=== PATIENT | male | born 1940 | race Caucasian/White ===

== ENCOUNTER 2019-08-16 11:12 | Emergency (ER) | payer MEDICARE, SELFPAY ==
[2019-08-16 11:13] VITALS: BP 157/93; PULSE 83; RESP 24; TEMP 36.5; O2SAT 98; BMI 26.5
--- NOTE | 2019-08-16 11:34 | EKG12_ITS ---
Test Reason : Blood Pressure : / mmHG Vent. Rate : 088 BPM Atrial Rate : 104 BPM P-R Int : 000 ms QRS Dur : 086 ms QT Int : 388 ms P-R-T Axes : 000 058 002 degrees QTc Int : 469 ms Atrial fibrillation Abnormal ECG Confirmed by ANDI BURROUGHS, MIGEL ([id number]), editorial director YARIEL YEUNG ([id number]) on 08/19/2019 3:19:57 PM Referred By: DAI Confirmed By:MIGEL ESCAMILLA MD
--- NOTE | 2019-08-16 11:34 | CT_ITS ---
STUDY: CT ABDOMEN AND PELVIS WITHOUT CONTRAST REASON FOR EXAM: Male, 79 years old. ABD/BACK PAIN, CHOLECYSTECTOMY, APPENDECTOMY RADIATION DOSAGE (If Supplied By Facility): CTDIvol = ( 30.17 ) mGy, DLP = ( 2015.82 ) mGycm TECHNIQUE: Transaxial images were obtained from the dome of the diaphragm to the symphysis pubis without oral contrast, and without intravenous contrast. Sagittal and coronal images were reconstructed. Individualized dose optimization techniques were used for this CT. COMPARISON: Prior study of 09/25/2010 FINDINGS: There is mild gravity dependent vascular pooling of the posterior lung bases. The visualized portions of the heart are within normal limits. There are multiple hepatic cysts measuring up to 2.3 cm. There are surgical clips in the gallbladder fossa consistent with a prior cholecystectomy. Normal spleen. Normal pancreas. Normal bilateral adrenal glands. Normal right kidney. Normal left kidney. There is a small hiatal hernia. Normal small intestine. There is colonic diverticulosis with no evidence of associated diverticulitis. The appendix is not seen in accordance with history of appendectomy. There are calcified plaques on the abdominal aorta. There is no evidence of abdominal aortic aneurysm or dissection. Normal inferior vena cava. Normal retroperitoneum. Normal urinary bladder. 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 Seminal vesicles and seminal vesicle angles are preserved. There is a tiny fat-containing umbilical hernia. There are small bilateral fat-containing inguinal hernias. There are diffuse degenerative changes of the visualized thoracolumbar spine. There is a small sclerotic focus of the L3 body not seen on the previous study, and possibly representing metastatic lesion. A tiny sclerotic focus of the left ilium is also noted, stable in the interval. CT/Abdomen/Pelvis W IV Cont ONLY IMPRESSION: 1. Multiple scattered hepatic cysts measuring up to 2.3 cm. 2. Status post cholecystectomy and appendectomy. 3. Small hiatal hernia. Tiny fat-containing umbilical hernia. Small bilateral fat-containing inguinal hernias. 4. Colonic diverticulosis with no evidence of associated diverticulitis. 5. 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 6. Small sclerotic focus of the L3 body not seen on the previous study and possibly representing metastatic lesion. 7. Tiny sclerotic focus of the left ilium is also noted, stable in the interval. 8. Calcified plaques of the abdominal aorta and common iliac arteries. There is no evidence of abdominal aortic aneurysm or dissection. Electronically Signed: Casey Lr MD at 12:24 EDT , Service support ,
[2019-08-16] MEDS: fentaNYL 100 MCG/2 ML Ampul 50 MCG IV (11:40)
[2019-08-16] MEDS: Ondansetron 4 MG/2 ML Vial IV (11:41)
--- NOTE | 2019-08-16 11:42 | ED.VISSUMM ---
- ER Visit Summary Date of Service: 08/16/19 Chief Complaint: Abdomen and back pain History of Present Illness: The patient is a [address] Fournier. He reports that at 715 this morning he had the abrupt onset of abdominal pain that radiates into the left side of his back. He is unable to further describe the pain. He states is 10 out of 10 in severity. It is worsened by laying down and relieved by sitting up. Has had nausea with dry heaves. No diarrhea. His last bowel was today. He denies any melena or hematochezia. No dysuria or frequency. He is never had anything like this before. On review of systems patient denies any chest pain or palpitations. Physical Examination: Vitals: Stable. Afebrile. General: Well-nourished and well-developed. Head: Normocephalic atraumatic. Neck: Supple, no lymphadenopathy. No JVD. Nontender. Cardiovascular: Irregularly irregular rhythm with a 2 out of 6 systolic murmur. Respiratory: No respiratory distress. Clear to auscultation bilaterally. Abdominal: Soft, nontender, nondistended, normal bowel sounds. No guarding, rebound, or peritoneal signs. Back: No vertebral tenderness or paraspinous muscular tenderness. No CVA tenderness. Extremities: Nontender, no edema. Skin: Normal color, no rash. Neurologic: Alert and oriented ?3. Cranial nerves II through XII are intact. Normal strength and sensation. Psych: Normal affect. Test Results: EKG is A. fib at [address] changes. This is a change from his last EKG in 2008. CBC shows a white count of 11.4 with platelets 147, 7 neutrophils 87, lymphocytes of 7. Chem-7 shows a glucose 121, BUN 24, creatinine 1.41. LFTs show total protein 6.3, lipase 187. Coags are normal. UA has 25-50 red blood cells. Troponin is negative. TSH is normal. Clinical Impression(s) from Imaging Studies Abdomen/Pelvis CT 08/16/19 11:34 IMPRESSION: 1. Multiple scattered hepatic cysts measuring up to 2.3 cm. 2. Status post cholecystectomy and appendectomy. 3. Small hiatal hernia. Tiny fat-containing umbilical hernia. Small bilateral fat-containing inguinal hernias. 4. Colonic diverticulosis with no evidence of associated diverticulitis. 5. 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 6. Small sclerotic focus of the L3 body not seen on the previous study and possibly representing metastatic lesion. 7. Tiny sclerotic focus of the left ilium is also noted, stable in the interval. 8. Calcified plaques of the abdominal aorta and common iliac arteries. There is no evidence of abdominal aortic aneurysm or dissection. Electronically Signed: Casey Lr MD at 12:24 EDT , Service support , ADDENDUM: 08/16/19 1309 3 mm left UVJ calculus. Emergency Department Course and Treatment: Patient had an IV placed. He was given fentanyl and Zofran IV. He is resting more comfortably. Patient's chads 2 score is 3. He was given a dose of Eliquis p.o. and Cardizem p.o. Treatment Plan: Patient was discussed with Dr. Liu. He does not recognize it he is in atrial fibrillation. He came in today for his kidney stone. He may have been in this for a prolonged period of time. I feel he is a suitable candidate for further outpatient evaluation. Dr. Liu agrees with this. He will be discharged on Eliquis and 120 mg of Cardizem CD a day. He is given a prescription for Percocet for his kidney stone. Instructed to follow-up with Dr. Alvares in 1 week if not improving. Return to the emergency department for any worsening symptoms. Disposition: To home in improved and stable condition. Impression: 1. Atrial fibrillation. 2. Left ureterolithiasis. This note was generated with [employer] dictation software. It may contain incorrect words, spelling, and punctuation that were not noted in review of the chart prior to signing ED Disposition - Plan for ED Patient: Disposition: Home or Assisted Living Instructions: ED AFIB, ED Renal Stone w Colic Prescriptions: Diltiazem CD [Cardizem CD] 120 mg PO DAILY #30 cap Prescription Printed Apixaban [Eliquis] 5 mg PO BID #74 tab Prescription Printed Hydrocodone Bitart/Apap 5-325 [[place] 5MG-325MG] 1 tab PO Q4H PRN PRN 2 Days #10 tab PRN Reason: Pain Prescription Printed Ondansetron [Zofran Odt] 4 mg PO Q8H PRN PRN #10 tab PRN Reason: Nausea Prescription Printed Referrals: Roman Ogden MD [Primary Care Provider] - 1 Week
[2019-08-16] MEDS: 0.9% Normal Saline 1,000 ML 125 ML IV (11:55)
[2019-08-16 11:57] VITALS: BP 146/90; PULSE 84; RESP 18; O2SAT 98
[2019-08-16 12:39] LABS: Absolute Lymphocyte Count 0.79 X10^3/uL (0.83-4.51); Absolute Neutrophil Count 9.9 X10^3/uL (2.0-7.7); Basophil# 0.04 X10^3/uL; Basophil% 0.4 % (0-1); Eosinophil# 0.04 X10^3/uL; Eosinophils% 0.4 % (0-5); Hematocrit 47.8 % (40-54); Hemoglobin 15.3 g/dL (13.0-16.5); Lymphocyte # 0.79 X10^3/ul (4.0); Lymphocyte % 6.9 % (19-41); Mean Corpuscular Hgb 27.7 pg (27.0-32.0); Mean Corpuscular Volume 86.6 fL (80-94); Mean Platelet Vol. 10.8 fl (6.2-12.0); Monocyte# 0.54 X10^3/uL; Monocyte% 4.7 % (0-10); NRBC Flagged by Analyzer 0 % (0-5); Neutrophil # 9.94 X10^3/uL (2.7-7.7); Platelet Count 147 K/mm3 (150-450); RBC Distribution Width CV 13.5 % (11.6-14.6); RBC Distribution Width SD 42.8 fl (35.1-43.9); Red Blood Count 5.52 M/mm3 (4.6-6.2); White Blood Count 11.4 K/mm3 (4.4-11.0)
[2019-08-16 12:48] LABS: International Normalized Ratio 1.2; Prothrombin Time (Protime)PT. 14.4 SECONDS (11.7-14.9)
[2019-08-16 12:49] LABS: Partial Thromboplast Time 26.8 Seconds (24.1-36.2)
[2019-08-16 13:07] LABS: AST(SGOT) 18 U/L (15-37); Alanine Aminotransfer ALT/SGPT 21 U/L (16-61); Albumin, Serum 3.4 g/dL (3.2-5.0); Alkaline Phosphatase 62 U/L (45-117); Anion Gap 6 (5-15); BUN 24 mg/dL (7-18); Bilirubin, Direct 0.19 mg/dL (0.00-0.30); Calcium,Total 8.9 mg/dL (8.5-10.1); Chloride 107 mmol/L (98-107); Creatinine, Serum 1.41 mg/dL (0.70-1.30); EST Glomerular Filtration Rate 51 mL/min (>60); Est Glom Filt Rate - Afr Amer 62 mL/min (>60); Estimated Creatinine Clearance 47.77 ml/min; Globulin 2.9 g/dL (2.2-4.2); Glucose 121 mg/dL (74-106); Lipase 187 U/L (73-393); Potassium 4.7 mmol/L (3.5-5.1); Protein, Total 6.3 g/dL (6.4-8.2); Sodium Level 141 mmol/L (136-145)
[2019-08-16 13:08] LABS: Lactic Acid 1.3 mmol/L (0.4-1.9)
[2019-08-16 13:18] LABS: Thyroid Stim Hormone (TSH) 1.03 uIU/mL (0.358-3.74)
[2019-08-16 13:20] VITALS: BP 163/91; PULSE 89; RESP 18; O2SAT 100
[2019-08-16 13:43] LABS: Bacteria 0 SEEN /hpf (None Seen); Mucous, Urine 0 SEEN /hpf (<or=2+); Squamous Epithelial Cells - UA 0 SEEN /hpf (0-5); White Blood Cells 0 SEEN /hpf (0-5)
[2019-08-16 14:09] LABS: Color, Urine Yellow (Yellow); Glucose, Dipstick Normal (Normal); Ketone-Dipstick Negative (Negative); Leukocyte Esterase-Dipstick Negative /ul (Negative); Nitrite-Dipstick Negative (Negative); Occult Blood-Urine 250 /ul (Negative); Protein-Dipstick Negative (Negative); Urine Bilirubin Dipstick Negative (Negative); Urine Clarity Clear (Clear); Urine Urobilinogen Normal (Normal)
[2019-08-16 14:18] LABS: Red Blood Cells-Urine 25-50 SEEN /hpf (0-5)
[2019-08-16] MEDS: APIXABAN 5 MG TABLET 10 MG PO (15:37)
[2019-08-16] MEDS: dilTIAZem CD 120 MG Capsule PO (15:37)
[2019-08-16 15:38] VITALS: BP 171/106; PULSE 85; RESP 18
== END 2019-08-16 16:01 | disposition home or self-care (01) ==
PROVIDERS: Emergency Provider Emergency Medicine; PCP Family Medicine
DX: I48.91 Unspecified atrial fibrillation (principal); N20.1 Calculus of ureter
CPT/HCPCS: 74177; 80048; 80076; 81001; 83605; 83690; 84443; 84484; 85025; 85610; 85730; 93005; 96361; 96365; 96375; 99285; J7030; Q9967; A4216; J2405

== ENCOUNTER 2019-08-19 07:54 | Inpatient (IN) | payer MEDICARE, SELFPAY ==
[2019-08-19 07:54] VITALS: BP 156/99; PULSE 112; RESP 20; TEMP 36.3; O2SAT 94; BMI 26.6
--- NOTE | 2019-08-19 08:03 | CT_ITS ---
STUDY: CT ABDOMEN AND PELVIS WITHOUT CONTRAST REASON FOR EXAM: Male, 79 years old. LT FLANK PAIN. PRIOR VIRGIL AND APPY RADIATION DOSAGE (If Supplied By Facility): CTDIvol = ( 12.66 ) mGy, DLP = ( 648.25 ) mGycm TECHNIQUE: Transaxial images were obtained from the dome of the diaphragm to the symphysis pubis without oral contrast, and without intravenous contrast. Sagittal and coronal images were reconstructed. Individualized dose optimization techniques were used for this CT. COMPARISON: 08/16/2019 FINDINGS: Some bibasilar atelectasis The visualized portions of the heart are within normal limits. Small hepatic cysts. There are surgical clips in the gallbladder fossa consistent with a prior cholecystectomy. Normal spleen. Normal pancreas. Normal bilateral adrenal glands. Normal right kidney. 2 separate stones of the distal left ureter measuring 2 and 3 mm in diameter with mild ureteral dilatation, hydronephrosis, and perinephric edema. Normal visualized stomach. Normal small intestine. There are multiple colonic diverticula consistent with diverticulosis. There is non-visualization of the appendix. There is diffuse atherosclerotic calcification of the abdominal aorta, without a demonstrated aneurysm. Normal inferior vena cava. Normal retroperitoneum. Normal urinary bladder. Radiation seeds within the prostate gland. Small amount of free fluid in the pelvis which is abnormal in a male patient. Normal abdominal wall. Levoscoliosis of the lumbar spine with degenerative disc disease. CT/Abdomen/Pelvis without Cont IMPRESSION: 2 obstructing stones in the distal left ureter with mild ureteral dilatation, hydronephrosis, perinephric edema. Electronically Signed: Hamilton Hayward MD at 9:14 EDT Tel , Service support ,
--- NOTE | 2019-08-19 08:05 | ED.DCSUM_ITS ---
- ER Visit Summary Date of Service: 08/19/19 Chief Complaint: [Flank pain] History of Present Illness: The patient is a 79 M [presents the emergency department left leg pain that started initially 4 days ago. Patient was seen in the emergency department on the of the month and diagnosed with a 3 mm ki dney stone at the left UVJ. Patient was sent home with pain medications but states that pain continues to be severe at times and rates it a 10 out of 10 currently. He has had some dry heaves. He denies any fever. He denies hematuria. Patient does have history of kidney stones. He currently does not have a urologist. Patient currently on Eliquis for history of atrial fibrillation. Patient also with history of hypertension. Prior surgical history includes appendectomy and cholecystectomy.] Physical Examination: [HEENT-PERRLA, EOMI. Cranial nerves II through XII gr ossly intact. TMs clear. Mucous membranes moist. No adenopathy. Cardiovascular-regular rate and rhythm without murmur or ectopy Lungs-clear to auscultation, chest wall stable without crepitus or subcu emphysema Abdomen-normoactive bowel sounds, soft. Patient has tenderness palpation over left lower quadrant with guarding. Patient is CVA tenderness on the left. There is no rebound, rigidity, or perineal signs. Extremities-intact ?4, normal range of motion, normal pulses, atraumatic] Test Results: [CBC with it showed an elevated white count of 14.2, hemoglobin 15, hematocrit 47, platelet 152. Chemistries unremarkable. BUN was 40 and creatinine 2.57. Urinalysis was unremarkable for infection. CT scan of the abdomen and pelvis without contrast showed 2 obstructing stones at the left UVJ with hydronephrosis and perinephric stranding on the left.] Emergency Department Course and Treatment: [IV line established. Patient was medicated with Toradol 10 mg IV as well as Zofran 4 mg IV and Dilaudid 1 mg IV.] Patient had good pain relief with treatment. Treatment Plan: [Case was discussed with urologist on-call Dr. Alvares who will admit patient and place a stent tomorrow.] Disposition: [Admit] Impression: [Kidney stone with colic Acute kidney injury ] This note was generated with [employer] software. It may contain incorrect words, spelling, and punctuation that were not noted in review of the chart prior to signing ED Disposition - Plan for ED Patient: Referrals: Roman Ogden MD [Primary Care Provider] -
[2019-08-19 08:31] LABS: Bacteria 0 SEEN /hpf (None Seen); Mucous, Urine 0 SEEN /hpf (<or=2+); White Blood Cells 0 SEEN /hpf (0-5)
[2019-08-19 08:34] LABS: Absolute Lymphocyte Count 0.77 X10^3/uL (0.83-4.51); Absolute Neutrophil Count 11.8 X10^3/uL (2.0-7.7); Basophil# 0.03 X10^3/uL; Basophil% 0.2 % (0-1); Eosinophil# 0.02 X10^3/uL; Eosinophils% 0.1 % (0-5); Hematocrit 47.3 % (40-54); Hemoglobin 15.1 g/dL (13.0-16.5); Lymphocyte # 0.77 X10^3/ul (4.0); Lymphocyte % 5.4 % (19-41); Mean Corp Hgb Conc 31.9 g/dL (32-36); Mean Corpuscular Hgb 27.9 pg (27.0-32.0); Mean Corpuscular Volume 87.3 fL (80-94); Mean Platelet Vol. 11.2 fl (6.2-12.0); Monocyte% 10.6 % (0-10); NRBC Flagged by Analyzer 0 % (0-5); Neutrophil # 11.78 X10^3/uL (2.7-7.7); Neutrophil % 83.1 % (47-70); Platelet Count 152 K/mm3 (150-450); RBC Distribution Width CV 13.8 % (11.6-14.6); RBC Distribution Width SD 43.8 fl (35.1-43.9); Red Blood Count 5.42 M/mm3 (4.6-6.2); White Blood Count 14.2 K/mm3 (4.4-11.0)
[2019-08-19 08:35] LABS: Color, Urine Yellow (Yellow); Glucose, Dipstick Normal (Normal); Ketone-Dipstick 15 mg/dl (Negative); Leukocyte Esterase-Dipstick Negative /ul (Negative); Nitrite-Dipstick Negative (Negative); Occult Blood-Urine 10 /ul (Negative); Protein-Dipstick 30 mg/dl (Negative); Specific Gravity, Urine 1.025 (1.002-1.030); Urine Bilirubin Dipstick Negative (Negative); Urine Clarity Sl. Cloudy (Clear); Urine Urobilinogen Normal (Normal)
[2019-08-19 08:47] LABS: Anion Gap 9 (5-15); BUN 40 mg/dL (7-18); BUN/Creat Ratio 15.6 RATIO (10-20); Calcium,Total 9.1 mg/dL (8.5-10.1); Chloride 105 mmol/L (98-107); Creatinine, Serum 2.57 mg/dL (0.70-1.30); EST Glomerular Filtration Rate 26 mL/min (>60); Est Glom Filt Rate - Afr Amer 31 mL/min (>60); Estimated Creatinine Clearance 26.21 ml/min; Glucose 122 mg/dL (74-106); Potassium 4.2 mmol/L (3.5-5.1); Sodium Level 141 mmol/L (136-145)
[2019-08-19] MEDS: 0.9% Normal Saline 1,000 ML 150 ML IV (08:48)
[2019-08-19] MEDS: Ondansetron 4 MG/2 ML Vial IV (08:48)
[2019-08-19 08:49] LABS: Red Blood Cells-Urine 0-5 SEEN /hpf (0-5); Squamous Epithelial Cells - UA 0-5 SEEN /hpf (0-5)
[2019-08-19] MEDS: HYDROmorphone 1 MG/ML Syringe IV (08:50)
[2019-08-19] MEDS: Ketorolac 15 MG/ML Vial 10 MG IV (08:50)
--- NOTE | 2019-08-19 09:25 | PCM.HP.STD ---
Problem List (1) left ureteral calculi Status: Acute History of Present Illness Date of Admission: 08/19/19 Chief Complaint: left obstructing renal calculi The patient is a 79 year old male presents the emergency room for second time with severe left flank pain stones the distal left ureter he has intractable pain elevated creatinine last training around his CAT scan findings and a lot of straining around the left kidney, he is on Eliquis for a fib, at this point I think he deserves admission and will plan for stent placement tomorrow. Past Medical History Medical History: Medical History (Last Updated 08/19/19 @ 09:[address] Benjamin Alvares MD) History of atrial fibrillation Z86.79 Allergies acyclovir Allergy (Verified 08/19/19 07:57) PT UNSURE OF REACTION Home Medications: Ambulatory Orders Medication Instructions Recorded Apixaban [Eliquis] 5 mg PO BID #74 tab 08/16/19 Diltiazem CD [Cardizem CD] 120 mg PO DAILY #30 cap 08/16/19 Ondansetron [Zofran Odt] 4 mg PO Q8H PRN PRN #10 tab 08/16/19 Surgical History: no surgical history Psychiatric History: No pertinent psych hx Lives: Alone Smoking Status: Never smoker Tobacco Use: Non-smoker Alcohol: None Drugs: None - *Family History Maternal History Items: No pertinent history Review of Systems Constitutional: Denies: Chills, Fever, Weight Change HEENT: Denies: Head Aches, Sinus Congestion, Sinus Drainage Cardiovascular: Denies: Chest Pain, Palpitations Respiratory: Denies: Cough, Shortness of breath at rest, Sputum production Gastrointestinal: Reports: Abdominal Pain. Denies: Nausea, Vomiting Genitourinary: Reports: Hematuria. Denies: Dysuria Musculoskeletal: Denies: Joint Pain, Joint Tenderness Skin: Denies: Rash, Wounds Neurological: Denies: Numbness, Tingling, Focal weakness Psychiatric: Denies: Anxiety, Depression, Homicidal Ideations, Suicidal Ideations Hematologic/ Lymphatic: Denies: Easy Bruising, Easy Bleeding VTE Information - Inpt Only VTE Present on Admission: No VTE Mechan Device Prophylaxis: SCD's Patient Problems: Active and Suspected Problems left ureteral calculi (Acute) - Physical Exam Vitals/I&O's: Vital Signs Temp Pulse Resp BP Pulse Ox 97.3 F L 112 H 20 H 156/99 H 94 08/19/19 07:54 08/19/19 07:54 08/19/19 07:54 08/19/19 07:54 08/19/19 07:54 Oxygen Delivery Method Room Air Weight: 93.894 kg Body Mass Index (BMI) 26.6 General: Alert, Oriented x3, Cooperative HEENT: Atraumatic, PERRLA, EOMI, Normocephalic Neck: Supple, No JVD, Negative Carotid Bruits Lungs: Clear to auscultation, Normal air movement Cardiovascular: Regular rate, No murmurs Abdomen: Bowel Sounds Present, Soft, Non Tender Extremities: No edema, Capillary Refill Less than 3 Seconds Skin: No rashes, No breakdown Musculoskeletal: No Tenderness to Palpation of Joints or Extremities Neurological: Cranial nerves II-XII grossly intact Psych/Mental Status: Normal Affect, Appropriate Laboratory Results 08/19/19 08:25: WBC 14.2 H, RBC 5.42, Hgb 15.1, Hct 47.3, MCV 87.3, MCH 27.9, MCHC 31.9 L, RDW Std Deviation 43.8, RDW Coeff of Alfonso 13.8, Plt Count 152, MPV 11.2, Immature Gran % (Auto) 0.600, Neut % (Auto) 83.1 H, Lymph % (Auto) 5.4 L, [place] % (Auto) 10.6 H, Eos % (Auto) 0.1, Baso % (Auto) 0.2, Absolute Neuts (auto) 11.8 H, Absolute Lymphs (auto) 0.77 L, Nucleated RBC % 0 08/19/19 08:25: Sodium 141, Potassium 4.2, Chloride 105, Carbon Dioxide 27.0, Anion Gap 9, BUN 40 H, Creatinine 2.57 H, Estim Creat Clear Calc 26.21, Est GFR (MDRD) Af Amer 31 L, Est GFR (MDRD) Non-Af 26 L, BUN/Creatinine Ratio 15.6, Glucose 122 H, Calcium 9.1 08/19/19 08:25: Urine Color Yellow, Urine Clarity Sl. Cloudy, Urine pH 5.0, Ur Specific [place] 1.025, Urine Protein 30 H, Urine Glucose (UA) Normal, Urine Ketones 15 H, Urine Occult Blood 10 H, Urine Nitrite Negative, Urine Bilirubin Negative, Urine Urobilinogen Normal, Ur Leukocyte Esterase Negative, Urine RBC 0-5 SEEN, Urine WBC 0 SEEN, Ur Squamous Epith Cells 0-5 SEEN, Urine Bacteria 0 SEEN, Urine Mucus 0 SEEN Current Medications Sodium Chloride () 1,000 mls @ 150 mls/hr IV .[id number] [facility] Last Admin: 08/19/19 08:48 Dose: 150 mls/hr Documented by: Assessment/Plan All Active Problems left ureteral calculi (Acute) plan admit the patient up because of obstructing stones is failed outpatient management. With the patient overnight for admission for elevated creatinine he has acute kidney injury, obstruction, hydronephrosis. And that will add on for stent retrograde stent tomorrow NPO midnight.
--- NOTE | 2019-08-19 09:29 | NURSING ---
MED SURG OBS MARTIN KIDNEY STONE WITH COLIC, LILLY
[2019-08-19 10:06] VITALS: BP 143/83; PULSE 106; RESP 14; TEMP 36.8; O2SAT 93
[2019-08-19] MEDS: Cefazolin 1 GM/50 ML BAG IV ×2 (10:10→22:07)
[2019-08-19 10:11] VITALS: BP 143/83; PULSE 106; RESP 14; TEMP 36.8; O2SAT 93
[2019-08-19 10:28] VITALS: BMI 26.9
[2019-08-19] MEDS: 0.9% Normal Saline 1,000 ML 100 ML IV ×2 (11:09→18:48)
[2019-08-19 11:50] VITALS: PULSE 100
[2019-08-19] MEDS: dilTIAZem CD 120 MG Capsule PO (12:04)
[2019-08-19 12:06] LABS: Bedside Glucose 114 mg/dL (70-110)
--- NOTE | 2019-08-19 12:54 | CHAPLAIN ---
Type of Pastoral Visit _x__ Initial Visit ___ Follow-up Visit ___ On-call Visit ___ General Patient Visit ___ Spiritual Assessment ___ Family Conference ___ Bereavement ___ Rapid Response ___ Code Blue ___ Other (describe below) Pastoral Care Referral From _x__ Patient ___ Family ___ Nurse ___ Physician ___ Fitness Consultant ___ Sustainability Executive Director ___ Other (describe below) Sacrament/Intervention _x__ Active listening ___ Anointing ___ Protestant ___ Bereavement ___ Communion _x__ Destiney exploration ___ _x__ Life review _x__ Prayer ___ Reconciliation ___ Sacrament of Sick _x__ Supportive presence ___ Wedding ___ Other (describe below) Pastoral Comments
[2019-08-19 16:25] VITALS: BP 130/76; PULSE 85; RESP 16; TEMP 37.2; O2SAT 94
[2019-08-19 16:36] LABS: Bedside Glucose 120 mg/dL (70-110)
[2019-08-19 20:30] VITALS: BP 137/68; PULSE 98; RESP 18; TEMP 37.1; O2SAT 93
[2019-08-19 23:00] LABS: Bedside Glucose 123 mg/dL (70-110)
[2019-08-20] VITALS (9 sets, daily range): BP systolic 121–144; BP diastolic 61–95; PULSE 81–103; RESP 16–18; TEMP 36.2–37.7; O2SAT 92–96; BMI 26.9
--- NOTE | 2019-08-20 | CALC_PTH ---
PATIENT: BETO ANDRADE Jr. LOC: MS3 U#:[id number] AGE/SX: 79/M [place] [facility] [place]: Dr. Benjamin Alvares MD : [id number] BED: 1 DIS: 08/20/2019 SPEC #: [id number] RECD: 08/20/19 14:38 STATUS: LAUREN DUMASColton #: [id number] YADIRA: 08/20/19 00:[address]: Benjamin Alvares DEPT: SURGICAL PATHOLOGY RECD BY: Abhinav Roy ENTERED: 08/21/19 09:12 SP TYPE: Calculi OTHR DR: Dr. Roman Ogden MD Tissues: CALCULI Procedures: Surgery Specimen Level I HEADER OPERATION: Cyst, insertion stent PRE-OP DIAGNOSIS: Left ureteral calculi TISSUE SUBMITTED: Left ureteral calculi GROSS DIAGNOSIS Fragments of stone, clinically left ureteral calculi. SJ:jadiel 5/21/20 COMMENT The calculus is submitted in its entirety for chemical stone analysis. The results from this study will be reported separately. GROSS DESCRIPTION Received is one container labeled with the patient's name and designated left ureteral calculi. The specimen consists of two fragments of brownish-black stone each measuring 0.2 cm in diameter. The calculus is submitted in its entirety for chemical stone analysis. / SJ:jadiel 08/21/19 CPT: 22444
[2019-08-20] MEDS: 0.9% Normal Saline 1,000 ML 100 ML IV (04:36)
--- NOTE | 2019-08-20 06:00 | EKG12_ITS ---
Test Reason : PRE-OP Blood Pressure : / mmHG Vent. Rate : 094 BPM Atrial Rate : 075 BPM P-R Int : 000 ms QRS Dur : 088 ms QT Int : 354 ms P-R-T Axes : 000 026 -29 degrees QTc Int : 442 ms Atrial fibrillation Low voltage QRS Abnormal ECG When compared with ECG of 16-AUG-2019 11:17, No significant change was found Confirmed by PROSPER BURROUGHS, BALDEV ([id number]), content editor YARIEL YEUNG ([id number]) on 08/26/2019 3:41:36 PM Referred By: MARTIN Confirmed By:BALDEV CHENG MD
[2019-08-20 06:13] LABS: Absolute Lymphocyte Count 1.25 X10^3/uL (0.83-4.51); Absolute Neutrophil Count 9.4 X10^3/uL (2.0-7.7); Basophil# 0.03 X10^3/uL; Basophil% 0.2 % (0-1); Eosinophil# 0.07 X10^3/uL; Eosinophils% 0.6 % (0-5); Hematocrit 41.7 % (40-54); Hemoglobin 13.5 g/dL (13.0-16.5); Lymphocyte # 1.25 X10^3/ul (4.0); Lymphocyte % 9.9 % (19-41); Mean Corp Hgb Conc 32.4 g/dL (32-36); Mean Corpuscular Volume 86.3 fL (80-94); Mean Platelet Vol. 11.4 fl (6.2-12.0); Monocyte% 14.3 % (0-10); NRBC Flagged by Analyzer 0 % (0-5); Neutrophil # 9.42 X10^3/uL (2.7-7.7); Neutrophil % 74.5 % (47-70); POSITIVE DIFFERENTIAL YES; Platelet Count 141 K/mm3 (150-450); RBC Distribution Width CV 13.8 % (11.6-14.6); RBC Distribution Width SD 43.9 fl (35.1-43.9); Red Blood Count 4.83 M/mm3 (4.6-6.2); White Blood Count 12.6 K/mm3 (4.4-11.0)
--- NOTE | 2019-08-20 06:13 | PCM.PROGNOTE ---
Patient Problems: Active and Suspected Problems (Last Updated 08/19/19 @ 09:[address] Benjamin Alvares MD) left ureteral calculi (Acute) Subjective: 79-year-old male with 2 stones in the distal ureter on the left side, still having pain overnight but not as severe rated 3 out of 10, will do a KUB this morning to see the stones are still present does not look like he has passed a stone we talked about the options of management with the patient going home and see if he can pass the stones or taken the surgery later today for extraction. - Physical Exam Vitals/I&O's: Vital Signs Temp Pulse Resp BP Pulse Ox 98.9 F 94 18 126/79 H 94 08/20/19 02:05 08/20/19 02:05 08/20/19 02:05 08/20/19 02:05 08/20/19 02:05 Oxygen Delivery Method Room Air Weight: 95.1 kg Body Mass Index (BMI) 26.9 Intake and Output for Last 24 Hours 08/18/19 08/19/19 08/20/19 23:59 23:59 23:59 Intake Total 2004 593.33 / 593.33 Output Total 425 / 425 Balance 1580 / 1580 593.33 / 593.33 General: Alert, Oriented x3, Cooperative HEENT: Atraumatic, PERRLA, EOMI, Normocephalic Neck: Supple, No JVD, Negative Carotid Bruits Lungs: Clear to auscultation, Normal air movement Cardiovascular: Regular rate, No murmurs Abdomen: Bowel Sounds Present, Soft, Non Tender Extremities: No edema, Capillary Refill Less than 3 Seconds Skin: No rashes, No breakdown Musculoskeletal: No Tenderness to Palpation of Joints or Extremities Neurological: Cranial nerves II-XII grossly intact Psych/Mental Status: Normal Affect, Appropriate Microbiology Past 72 Hours 08/19/19 15:04 Mucosa - Nasopharyngeal Coronavirus COVID-19 PCR - Final Laboratory Results 08/19/19 08:25: WBC 14.2 H, RBC 5.42, Hgb 15.1, Hct 47.3, MCV 87.3, MCH 27.9, MCHC 31.9 L, RDW Std Deviation 43.8, RDW Coeff of Alfonso 13.8, Plt Count 152, MPV 11.2, Immature Gran % (Auto) 0.600, Neut % (Auto) 83.1 H, Lymph % (Auto) 5.4 L, [place] % (Auto) 10.6 H, Eos % (Auto) 0.1, Baso % (Auto) 0.2, Absolute Neuts (auto) 11.8 H, Absolute Lymphs (auto) 0.77 L, Nucleated RBC % 0 08/19/19 08:25: Sodium 141, Potassium 4.2, Chloride 105, Carbon Dioxide 27.0, Anion Gap 9, BUN 40 H, Creatinine 2.57 H, Estim Creat Clear Calc 26.21, Est GFR (MDRD) Af Amer 31 L, Est GFR (MDRD) Non-Af 26 L, BUN/Creatinine Ratio 15.6, Glucose 122 H, Calcium 9.1 08/19/19 08:25: Urine Color Yellow, Urine Clarity Sl. Cloudy, Urine pH 5.0, Ur Specific [place] 1.025, Urine Protein 30 H, Urine Glucose (UA) Normal, Urine Ketones 15 H, Urine Occult Blood 10 H, Urine Nitrite Negative, Urine Bilirubin Negative, Urine Urobilinogen Normal, Ur Leukocyte Esterase Negative, Urine RBC 0-5 SEEN, Urine WBC 0 SEEN, Ur Squamous Epith Cells 0-5 SEEN, Urine Bacteria 0 SEEN, Urine Mucus 0 SEEN 08/19/19 12:01: POC Glucose 114 H 08/19/19 16:30: POC Glucose 120 H 08/19/19 22:53: POC Glucose 123 H 08/20/19 05:38: WBC Pending, RBC Pending, Hgb Pending, Hct Pending, MCV Pending, MCH Pending, MCHC Pending, RDW Std Deviation Pending, RDW Coeff of Alfonso Pending, Plt Count Pending, Neut % (Auto) Pending, Absolute Neuts (auto) Pending 08/20/19 05:38: Sodium Pending, Potassium Pending, Chloride Pending, Carbon Dioxide Pending, Anion Gap Pending, BUN Pending, Creatinine Pending, Est GFR (MDRD) Af Amer Pending, Est GFR (MDRD) Non-Af Pending, BUN/Creatinine Ratio Pending, Glucose Pending, Calcium Pending Current Medications Acetaminophen (Tylenol) 650 mg PO Q6H PRN PRN PRN Reason: Pain Score 1-10/Temp > 100.7 F Dextrose (D50w Syringe) 0 gm IV X1 PRN; Protocol PRN Reason: Hypoglycemia Diltiazem HCl (Cardizem Cd) 120 mg PO DAILY [facility] Last Admin: 08/19/19 12:04 Dose: 120 mg Documented by: Glucagon () 1 mg IM .X1 PRN PRN Reason: Hypoglycemia Sodium Chloride () 1,000 mls @ 100 mls/hr IV .Q10H [facility] Last Admin: 08/20/19 04:36 Dose: 100 mls/hr Documented by: Cefazolin Sodium () 1 gm in 50 mls @ 100 mls/hr IV Q12 [facility] Stop: 08/24/19 10:01 Last Infusion: 08/19/19 22:40 Dose: Infused Documented by: Sodium Chloride () 250 mls @ 15 mls/hr IV .[id number] PRN PRN Reason: Saline Flush Morphine Sulfate () 2 mg IV Q3H PRN PRN PRN Reason: Pain Score 6-10/10 Ondansetron HCl (Zofran) 4 mg IV Q8H PRN PRN PRN Reason: NAUSEA/VOMITING Oxycodone HCl (Oxyir) 10 mg PO Q4H PRN PRN PRN Reason: Pain Score 4-5/10 Sodium Chloride () 10 - 40 ml IV UD PRN PRN Reason: SALINE FLUSH Zolpidem Tartrate (Ambien (Generic)) 5 mg PO QHS PRN PRN PRN Reason: INSOMNIA Medical Necessity - Tobacco Use Smoking Status: Never smoker Tobacco Use: Non-smoker Assessment/Plan All Active Problems (Last Updated 08/19/19 @ 09:[address] Benjamin Alvares MD) left ureteral calculi (Acute) We will check a KUB and he is on the schedule for today for extraction of stones possible stent.
[2019-08-20 06:25] LABS: Anion Gap 7 (5-15); BUN 42 mg/dL (7-18); BUN/Creat Ratio 17.5 RATIO (10-20); Calcium,Total 8.3 mg/dL (8.5-10.1); Chloride 109 mmol/L (98-107); EST Glomerular Filtration Rate 28 mL/min (>60); Est Glom Filt Rate - Afr Amer 34 mL/min (>60); Estimated Creatinine Clearance 28.07 ml/min; Glucose 100 mg/dL (74-106); Potassium 4.1 mmol/L (3.5-5.1); Sodium Level 140 mmol/L (136-145)
[2019-08-20 07:01] LABS: Differential Indicated SCAN CRITERIA MET
[2019-08-20 07:18] LABS: Differential Comment SCANNED; Ovalocyte RARE; Reactive Lymphocyte RARE
--- NOTE | 2019-08-20 07:20 | RAD_ITS ---
STUDY: X-RAY - ABDOMEN/PELVIS REASON FOR EXAM: Male, 79 years old. KIDNEY STONE TECHNIQUE: AP supine view. COMPARISON: CT abdomen and pelvis without contrast 08/19/2019. FINDINGS: Subsegmental atelectases in the lung bases. There is an unremarkable bowel gas pattern. There is no demonstrated free abdominal air. The visualized liver, spleen and kidneys are grossly normal in size and morphology. No visible radiopaque calculi. The obstructing calculus in the left distal ureter is not visible on plain film radiograph. Pronounced at L2-L3 disc space height narrowing. Mild degree L4 and L4-L5 disc space height narrowing. RAD/Abdomen Single View IMPRESSION: 1. The obstructing calculus in the left distal ureter seen on CT is not visible on plain film radiograph. 2. No suspicious acute abnormality in the abdomen and pelvis. Electronically Signed: Krishna Obregon MD at 8:28 EDT , Service support ,
[2019-08-20] MEDS: dilTIAZem CD 120 MG Capsule PO (08:13)
[2019-08-20] MEDS: Cefazolin 1 GM/50 ML BAG IV (10:00)
--- NOTE | 2019-08-20 10:15 | NURSING ---
Off unit to OR at this time.
--- NOTE | 2019-08-20 10:40 | PCM.DC.URO ---
Discharge Diet: No Restrictions Discharge Activity: Return to Normal Activity, May Not Drive - for 2 days. Additional Activity Instructions:: Please be aware that pain medications may cause nausea. You should typically eat light foods as you take your pain medication. Pain medication may cause constipation, if this is a problem for you, please discuss with your doctor. Allergies/Adverse Reactions: Allergies acyclovir Allergy (Verified 08/19/19 07:57) PT UNSURE OF REACTION Medications to take at Discharge Apixaban [Eliquis] 5 mg PO BID #74 tab 08/16/19 Diltiazem CD [Cardizem CD] 120 mg PO DAILY #30 cap 08/16/19 Ondansetron [Zofran Odt] 4 mg PO Q8H PRN PRN #10 tab 08/16/19 Ciprofloxacin [Cipro] 500 mg PO BID #6 tab 08/20/19 Hydrocodone/Acetaminophen [[place] 5-325 Tablet] 1 each PO Q4H PRN PRN 5 Days #14 tablet 08/20/19 The following prescriptions were given: Ciprofloxacin [Cipro] 500 mg PO BID #6 tab [id number] Hydrocodone/Acetaminophen [[place] 5-325 Tablet] 1 each PO Q4H PRN PRN 5 Days #14 tablet PRN Reason: Pain Score 1-10/10 [id number] Primary Care Physician: Roman Ogden MD [Primary Care Provider] - Test Results: Test results from this visit will be discussed in further detail at your follow-up appointment, if applicable. Please Follow Up With: Benjamin Alvares MD When: please call to make an appointment. Proposed Discharge Date: 08/20/19
--- NOTE | 2019-08-20 11:05 | PCA ---
pt off floor
--- NOTE | 2019-08-20 11:17 | OP.PCM_ITS ---
Problem List (1) left ureteral calculi Status: Acute Report of Operation Date of Procedure: 08/20/19 Pre-Operative Diagnosis: Left ureteral calculi with obstruction ureteral narrowing stricture Post-Operative Diagnosis: The same Surgery/Procedure Performed:: Cystoscopy, balloon dilation of ureteral stricture, ureteroscopy basket extraction of stone and left stent placement Description of Surgical Findings:: 79-year-old male taken back to the operating room at the smooth induction of general anesthesia he was placed upon the table, the urethra and penis and testicles were prepped and draped in usual sterile fashion went into the bladder with a 21 [place] rigid cystourethroscope the entire length urethra is normal no prostatic strictures no urethral strictures inside the bladder had bilateral hypertrophy some mild thickening of the bladder, identified the trigone, I then advanced a wire up the left side the ureter was narrowed and strictured from the stones causing inflammation so then I advanced the balloon dilator and balloon dilated the stricture the distal ureter caused by the stones, and then left the wire in place got a significant amount of hydronephrotic drip and brownish urine from the kidney this was sent off for culture, we then went in with a [employer] offset Olympus semirigid ureteroscope was able to get into the ureter quite easily the first stone passed as I went into the ureter the second stone was then basketed with a basket and pulled out in an atraumatic fashion this was handed off as a specimen. After extraction of the stones I then put a wire back up in the kidney over the wire place a stent is a 6 [place] by 26 cm stent left the string of the stent for extraction in the office next week. Patient anesthetic is reversed plan to see him next week to remove the stent. Type of Anesthesia:: General Drains: stent left side - Admit VTE Documentation VTE Present on Admission: No VTE Mechan Device Prophylaxis: SCD's
--- NOTE | 2019-08-20 11:29 | PHA.DC.MR ---
Pharmacy Service has performed discharge medication reconciliation for this patient. Went up to [facility] to certified addiction counselor patient, but patient off the floor for procedure. Will attempt to see patient again later today when back from surgery and awake. Performed Medication Discharge review only at this time. The patient's discharge medication list was reviewed for discrepancies and discrepancies were resolved. Home Medications Apixaban [Eliquis] 5 mg PO BID #74 tab 08/16/19 Diltiazem CD [Cardizem CD] 120 mg PO DAILY #30 cap 08/16/19 Ondansetron [Zofran Odt] 4 mg PO Q8H PRN PRN #10 tab 08/16/19 Ciprofloxacin [Cipro] 500 mg PO BID #6 tab 08/20/19 Hydrocodone/Acetaminophen [[place] 5-325 Tablet] 1 ea PO Q4H PRN PRN 5 Days #14 tab 08/20/19
[2019-08-20 11:35] LABS: Pathologist Review Reviewed
== END 2019-08-20 15:15 | disposition home or self-care (01) | DRG 661 ==
LOC: ED 08:58 → MS3 09:55
PROVIDERS: Admitting Provider Urology; Emergency Provider Emergency Medicine; PCP Family Medicine; Visit Provider Urology
PROC: 0TC78ZZ Extirpation of Matter from Left Ureter, Via Natural or Artificial Opening Endoscopic (ICD-10-PCS; principal; 2019-08-20 15:00)
DX: N13.2 Hydronephrosis with renal and ureteral calculous obstruction (principal); I48.91 Unspecified atrial fibrillation; I10 Essential (primary) hypertension; Z87.442 Personal history of urinary calculi; Z79.899 Other long term (current) drug therapy; Z11.59 Encounter for screening for other viral diseases
CPT/HCPCS: 36415; 74018; 74176; 74177; 80048; 80076; 81001; 82360; 82962; 83605; 83690; 84443; 84484; 85025; 85610; 85730; 87086; 87635; 88300; 93005; 96361; 96365; 96374; 96375; 99284; 99285; G2023; J7030; Q9967; A4216; C1769; C2617; J2405; U0002

== ENCOUNTER → 2019-08-28 15:41 | Outpatient (CLI) | payer MEDICARE, SELFPAY ==
[2019-08-20 10:28] VITALS: BMI 26.9
== END ==
PROVIDERS: PCP Family Medicine; Visit Provider Urology
DX: N20.1 Calculus of ureter (principal)

== ENCOUNTER 2021-03-31 11:27 | Inpatient (IN) | payer MEDICARE, SELFPAY ==
[2021-03-31] VITALS (13 sets, daily range): BP systolic 139–176; BP diastolic 80–144; PULSE 91–121; RESP 18–24; TEMP 36–37.2; O2SAT 95–98; BMI 25.7; BMI 25.0
--- NOTE | 2021-03-31 11:55 | RAD_ITS ---
STUDY: X-RAY CHEST REASON FOR EXAM: Male, 80 years old. Fall, PT FELL SOMETIME LAST NIGHT AND LAYED ON THE FLOOR TECHNIQUE: AP COMPARISON: None. FINDINGS: EKG leads project over the chest. The lungs are clear and expanded. There is no demonstrated pleural abnormality. Normal size heart. Normal mediastinum and raquel. Normal visualized pulmonary arteries. There is atherosclerotic calcification of the aortic arch with tortuosity. No acute bony process. There is no demonstrated abnormality of the visualized soft tissue structures of the upper abdomen. RAD/Chest 1 View (Portable) IMPRESSION: Nonacute portable x-ray examination of the chest. Electronically Signed: aJime Aguiar MD ([place]) at 13:32 EST , Service support ,
--- NOTE | 2021-03-31 11:55 | CT_ITS ---
STUDY: CT BRAIN WITHOUT CONTRAST REASON FOR EXAM: Male, 80 years old. fall RADIATION DOSAGE (If Supplied By Facility): CTDIvol = ( 44.99 ) mGy, DLP = ( 846.73 ) mGycm TECHNIQUE: Transaxial CT imaging of the brain was performed without administration of intravenous contrast material. Individualized dose optimization techniques were used for this CT. COMPARISON: No relevant priors. FINDINGS: Normal soft tissue structures. Normal calvarium. There is mild cerebral atrophy with widening of the extra-axial spaces and ventricular dilatation. There are areas of decreased attenuation within the white matter tracts of the supratentorial brain, consistent with microvascular disease changes. Normal basal ganglia and thalami. Normal brainstem. Normal cerebellum. There is no intracranial hemorrhage. There are no findings of an acute ischemic infarction. Normal visualized paranasal sinuses. CT/Brain/Head without Contrast IMPRESSION: No acute intracranial hemorrhage or mass effect. Electronically Signed: Jaime Aguiar MD ([place]) at 13:26 EST , Service support ,
--- NOTE | 2021-03-31 11:55 | RAD_ITS ---
STUDY: X-RAY - LEFT TIBIA AND FIBULA REASON FOR EXAM: Male, 80 years old. fall TECHNIQUE: 2 view(s) of the tibia and fibula were obtained. COMPARISON: None. FINDINGS: Normal visualized tibia. On the lateral view, there is subtle lucency of the distal fibula with slight cortical thickening. Degenerative changes of the knee. There is soft tissue swelling consistent with a soft tissue injury. RAD/Tibia & Fibula 2 Views IMPRESSION: 1. Possible nondisplaced distal fibular fracture, Cora Mckeon. recommend correlating with clinical palpation. 2. Soft tissue swelling/injury. Electronically Signed: Jaime Aguiar MD ([place]) at 13:31 EST , Service support ,
--- NOTE | 2021-03-31 11:55 | CT_ITS ---
EXAM: CT CERVICAL SPINE WITHOUT INTRAVENOUS CONTRAST CLINICAL INDICATION: fall TECHNIQUE: Helically acquired images were obtained of the cervical spine without intravenous contrast. 2D reformatted images were reviewed. This CT exam was performed using one or more of the following dose reduction techniques: automated exposure control, adjustment of the mA and/or kV according to patient size, and/or use of iterative reconstruction technique. This report was created using [employer] report generation technology. COMPARISON: None. FINDINGS: VERTEBRAE: Anterior spondylosis at multiple cervical levels. No fracture. No traumatic subluxation. No discrete lytic or blastic abnormality. Normal alignment. Normal craniocervical junction and cervicothoracic junction. 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 Facet arthropathy at C3-C4, C4-C5 and C5-C6. Multilevel facet arthropathy predominantly due to facet arthropathy most notable at left C6-C7 and right C7-T1. No critical stenosis. SOFT TISSUES: Unremarkable. No prevertebral soft tissue swelling. VASCULATURE: Carotid atherosclerosis. LYMPH NODES: Unremarkable. No cervical adenopathy. LUNG APICES: Unremarkable as visualized. Clear. CT/Spine Cervical without Contras IMPRESSION: No acute findings in the cervical spine. Electronically Signed: Jaime Aguiar MD ([place]) at 13:28 EST , Service support ,
--- NOTE | 2021-03-31 11:56 | EKG12_ITS ---
Test Reason : FALL Blood Pressure : / mmHG Vent. Rate : 111 BPM Atrial Rate : 375 BPM P-R Int : 000 ms QRS Dur : 084 ms QT Int : 228 ms P-R-T Axes : 000 030 269 degrees QTc Int : 310 ms Atrial fibrillation Low voltage QRS Abnormal ECG Confirmed by BALDEV CHENG MD ([id number]), film editor supervisor DANA CHANG ([id number]) on 04/06/2021 11:01:05 AM Referred By: MR Confirmed By:BALDEV CHENG MD
[2021-03-31 12:06] LABS: Absolute Lymphocyte Count 0.79 X10^3/uL (0.83-4.51); Absolute Neutrophil Count 14.1 X10^3/uL (2.0-7.7); Basophil# 0.03 X10^3/uL; Basophil% 0.2 % (0-1); Hematocrit 49.1 % (40-54); Hemoglobin 16.2 g/dL (13.0-16.5); Lymphocyte # 0.79 X10^3/ul (0.83-4.51); Lymphocyte % 4.8 % (19-41); Mean Corpuscular Hgb 27.8 pg (27.0-32.0); Mean Corpuscular Volume 84.4 fL (80-94); Mean Platelet Vol. 12.1 fl (6.2-12.0); Monocyte# 1.43 X10^3/uL; Monocyte% 8.7 % (0-10); NRBC Flagged by Analyzer 0 % (0-5); Neutrophil # 14.13 X10^3/uL (2.7-7.7); Neutrophil % 85.6 % (47-70); Platelet Count 150 K/mm3 (150-450); RBC Distribution Width CV 14.3 % (11.6-14.6); RBC Distribution Width SD 43.8 fl (35.1-43.9); Red Blood Count 5.82 M/mm3 (4.6-6.2); White Blood Count 16.5 K/mm3 (4.4-11.0)
[2021-03-31 12:27] LABS: Partial Thromboplast Time 35.2 Seconds (24.1-36.2)
[2021-03-31 12:32] LABS: International Normalized Ratio 1.4; Prothrombin Time (Protime)PT. 16.6 SECONDS (11.7-14.9)
[2021-03-31 12:43] LABS: Lactic Acid 4.5 mmol/L (0.4-1.9)
[2021-03-31] MEDS: 0.9% Normal Saline 1,000 ML 1000 ML IV (12:50)
[2021-03-31 13:11] LABS: ALB/GLOB Ratio 0.9 RATIO (0.9-2.4); AST(SGOT) 447 U/L (15-37); Alanine Aminotransfer ALT/SGPT 111 U/L (16-61); Albumin, Serum 3.5 g/dL (3.2-5.0); Alkaline Phosphatase 76 U/L (45-117); Anion Gap 13 (5-15); BUN 31 mg/dL (7-18); CPK Total, Creatine Kinase 20658 U/L (39-308); Calcium,Total 9.1 mg/dL (8.5-10.1); Chloride 104 mmol/L (98-107); Creatinine, Serum 3.11 mg/dL (0.70-1.30); EST Glomerular Filtration Rate 21 mL/min (>60); Est Glom Filt Rate - Afr Amer 25 mL/min (>60); Estimated Creatinine Clearance 21.29 ml/min; Globulin 3.9 g/dL (2.2-4.2); Glucose 191 mg/dL (74-106); Protein, Total 7.4 g/dL (6.4-8.2); Sodium Level 141 mmol/L (136-145); Troponin-I HS 64 pg/mL (3.0-78.0)
[2021-03-31] MEDS: Lactated Ringers 1,000 ML 999 ML IV (13:26)
--- NOTE | 2021-03-31 14:14 | EX.ED.DYSGE1 ---
HPI History of Present Illness Chief Complaint: Fall Narrative Narrative: Patient presenting for evaluation secondary to fall and confusion. Patient has a underlying history of A. fib on anticoagulation with Eliquis. Patient's significant other found him down today on the ground. The patient tells me that he simply was on the ground petting the dog and he fell asleep and denies that there was any sort of fall, but the patient was noted to have significant pressure sores, change in color of his arm, confusion and was brought to the emergency department for further evaluation. Patient denies that he had recent infectious signs or symptoms such as fever cough nausea vomiting diarrhea. Denies any chest pain. Patient reports pain over a large wound that he has on his left leg. [facility] Medical History History of atrial fibrillation Home Medications apixaban 5 mg PO BID #74 tab 08/16/19 [Rx Last Taken Unknown] diltiazem HCl 120 mg PO DAILY #30 cap 08/16/19 [Rx Last Taken Unknown] ondansetron 4 mg PO Q8H PRN PRN #10 tab 08/16/19 [Rx Last Taken Unknown] ciprofloxacin HCl 500 mg PO BID #6 tab 08/20/19 [Rx Last Taken Unknown] Allergy/AdvReac Type Severity Reaction Status Date / Time acyclovir Allergy PT UNSURE Verified 08/19/19 07:57 OF REACTION Social History Smoking Status: Never smoker ROS ROS ED Constitutional Constitutional ED: Denies chills or fever(s) ENT ENT ED: Denies rhinorrhea Cardiovascular Cardiovascular: Denies chest pain Respiratory/Chest Respiratory/Chest: Denies cough or dyspnea Gastrointestinal Gastrointestinal: Denies abdominal pain, diarrhea, nausea or vomiting Genitourinary Genitourinary ED: Denies dysuria or hematuria Musculoskeletal Musculoskeletal: Reports other Details: Pain Integumentary Reports other Details: Leg wound Neurologic Neurologic: Denies paresthesias or weakness Psychiatric Psychiatric: Denies depression Endocrine Endocrinology: Denies fatigue Allergic/Immunologic Allergic/Immunologic ED: Denies urticaria EXAM Physical Exam Const Vital Signs: 03/31/21 11:28 03/31/21 12:31 Temperature 96.8 F L 96.8 F L Temperature Source Temporal Temporal Pulse Rate 102 H 102 H Respiratory Rate 24 H 24 H Respiratory Effort Normal Blood Pressure 144/131 H 144/131 H Blood Pressure Mean 135 135 Pulse Ox 98 98 Oxygen Delivery Method Room Air Room Air Positive well nourished and well developed General Appearance ED: well developed and NAD HEENT Reports dry mucous membranes Negative for trauma or tenderness Mouth ED: Yes dry mucous membranes Mouth: dry mucous membranes Eyes Eyes Narrative: Disconjugate gaze which patient states is at baseline Neck no lymphadenopathy, supple and no JVD General: Negative for tenderness Chest Wall inspection of chest normal Resp normal respiratory effort and clear to auscultation bilaterally Cardio peripheral pulses 2+ throughout Rate: other Other Details: Tachycardic and irregular, 2+ radial pulses bilaterally symmetric, 2+ DP pulses bilaterally symmetric GI normal to inspection, nondistended, normoactive bowel sounds, non-tender and no masses Palpation: soft Back/Spine normal to inspection Extremity Extremity Narrative: Examination the patient's extremities, patient has ecchymosis of his right arm that starts in a very linear fashion in the mid upper arm and then is confluence going distally all the way through the patient's tips of his fingers. Compartments are soft, this is nontender, he has normal range of motion of the arm and normal pulses. Examination of the patient's left lower extremity shows what appears to be a large decubitus wound measuring maybe 20 cm x 15 cm over his pretibial area without any surrounding erythema. Patient has some decubitus ulcers on his buttocks. Neuro oriented x3 and no sensory deficits noted Sensorium / Orientation: alert Motor Exam: strength 5/5 throughout Psych mental status grossly normal Skin no rashes or lesions noted MDM MDM MDM Narrative Medical decision making narrative: Patient presented secondary to a fall. The patient's description of how long he was down does not really match his physical exam findings, but work-up was obtained. Patient was noted to have a leukocytosis at 16,000. Chemistry shows the patient to be in acute renal failure with a creatinine at 3.1 and no significant electrolyte derangements. Patient was noted to have elevation of his AST and ALT. Creatinine kinase was pathologically elevated at 20,000. CT imaging of the patient's brain was negative, chest x-ray by my personal review as well as radiology noted to be negative. CT imaging of the C-spine was noted to be negative. Tib-fib x-ray per radiology possibly shows a slight fibular fracture although the patient does not seem to be tender in this area. Patient was started on fluid resuscitation. Patient will be admitted under the hospitalist. Lab Data Labs: Laboratory Results - last 24 hr 03/31/21 03/31/21 03/31/21 11:40 11:40 11:40 WBC 16.5 H RBC 5.82 Hgb 16.2 Hct 49.1 MCV 84.4 MCH 27.8 MCHC 33.0 RDW Std Deviation 43.8 RDW Coeff of Alfonso 14.3 Plt Count 150 MPV 12.1 H Immature Gran % (Auto) 0.700 Neut % (Auto) 85.6 H Lymph % (Auto) 4.8 L [place] % (Auto) 8.7 Eos % (Auto) 0.0 Baso % (Auto) 0.2 Absolute Neuts (auto) 14.1 H Absolute Lymphs (auto) 0.79 L Nucleated RBC % 0 PT 16.6 H INR 1.4 APTT 35.2 Sodium 141 Potassium 4.0 Chloride 104 Carbon Dioxide 24.0 Anion Gap 13 BUN 31 H Creatinine 3.11 H Estim Creat Clear Calc 21.29 Est GFR (MDRD) Af Amer 25 L Est GFR (MDRD) Non-Af 21 L BUN/Creatinine Ratio 10.0 Glucose 191 H Lactic Acid Calcium 9.1 Total Bilirubin 1.20 H AST 447 H ALT 111 H Alkaline Phosphatase 76 Total Creatine Kinase 98117 H Troponin I High Sens 64 Total Protein 7.4 Albumin 3.5 Globulin 3.9 Albumin/Globulin Ratio 0.9 03/31/21 11:40 WBC RBC Hgb Hct MCV MCH MCHC RDW Std Deviation RDW Coeff of Alfonso Plt Count MPV Immature Gran % (Auto) Neut % (Auto) Lymph % (Auto) [place] % (Auto) Eos % (Auto) Baso % (Auto) Absolute Neuts (auto) Absolute Lymphs (auto) Nucleated RBC % PT INR APTT Sodium Potassium Chloride Carbon Dioxide Anion Gap BUN Creatinine Estim Creat Clear Calc Est GFR (MDRD) Af Amer Est GFR (MDRD) Non-Af BUN/Creatinine Ratio Glucose Lactic Acid 4.5 H* Calcium Total Bilirubin AST ALT Alkaline Phosphatase Total Creatine Kinase Troponin I High Sens Total Protein Albumin Globulin Albumin/Globulin Ratio Radiography Diagnostic Testing: Clinical Impression(s) from Imaging Studies Brain CT 03/31/21 11:55 IMPRESSION: No acute intracranial hemorrhage or mass effect. Electronically Signed: Jaime Aguiar MD ([place]) at 13:26 EST , Service support , Cervical Spine CT 03/31/21 11:55 IMPRESSION: No acute findings in the cervical spine. Electronically Signed: Jaime Aguiar MD ([place]) at 13:28 EST , Service support , Chest X-Ray 03/31/21 11:55 IMPRESSION: Nonacute portable x-ray examination of the chest. Electronically Signed: Jaime Aguiar MD ([place]) at 13:32 EST , Service support , Tibia/Fibula X-Ray 03/31/21 11:55 IMPRESSION: 1. Possible nondisplaced distal fibular fracture, Cora Mckeon. recommend correlating with clinical palpation. 2. Soft tissue swelling/injury. Electronically Signed: Jaime Aguiar MD ([place]) at 13:31 EST , Service support , EKG Initial EKG: Attestation: I personally reviewed and interpreted this EKG as follows: (Atrial flutter with a rapid ventricular rate at 111, no evidence of pathologic ST segment elevation there is T wave inversions noted laterally.) Critical Care Time Critical care time (excluding procedures): 30-74 minutes (52), Including time spent:, Discussing w/Patient &/or Family/Senior Ui Ux Designer, Discussing w/Consultants, Arranging Admission or Transfer and Performing Direct Patient Care at Bedside Discharge Plan Triage Chief Complaint: Fall ED Provider: Nikita Quiles Dx/Rx/DC Orders Clinical Impression: Acute renal failure due to rhabdomyolysis, Decubitus skin ulcer Prescriptions: No Action apixaban 5 MG tablet 5 mg PO BID Qty: 74 RF: 0 diltiazem HCl 120 MG capsule 120 mg PO DAILY Qty: 30 RF: 0 ondansetron 4 MG tablet 4 mg PO Q8H PRN PRN (Reason: Nausea) Qty: 10 RF: 0 ciprofloxacin HCl 500 MG tablet 500 mg PO BID Qty: 6 RF: 0 Primary Care Provider: Roman Ogden Referrals: Roman Ogden MD [Primary Care Provider] - Disposition Disposition: Acute Care Hospital [facility]
--- NOTE | 2021-03-31 14:19 | HP.PCM.HOS_ITS ---
HPI - General General Date of Admission: 03/31/21 Date of Service: 03/31/21 Chief Complaint: Fall, confused. HPI Narrative The patient is an 80 y/o M w/ PMHx: Chronic Atrial Fibrillation, Suspected CKD but unclear stage or subtype, HTN, prior Hx shingles infection with L eye gaze defect chronically who presents to the [facility] ED on 03/31/21 with history of mechanical fall the evening prior potentially although unclear exact downtime, found in later in the day of day of ED presentation on the ground although he denies fall but on examination he has a denuded injury on the L knee and pena and notable and when he was found he was laying directly on the right upper extremity in an odd position which was discolored and had not been the day prior per discussion with patient's family. Work-up in the ED included T 96.8, heart rate 102, BP 144/131, respiratory rate 24, 98% on room air, CBC with WC 16.5, hemoglobin 16.2, platelet 150 with left shift and lymphopenia, coags with PT 16.6, INR 1.4, PTT 35.2, CMP with BUN/creat 31/3.11, glucose 191, lactic acid 4.5, total bilirubin 1.20, AST/LT 447/111, alk phos 76, total CK 20,658, tropon in 64, EKG with atrial fibrillation with rate 111, CT the brain with no acute intracranial findings, CT of the cervical spine with no acute findings, chest x- ray with no acute cardiopulmonary findings, left tib-fib plain film with possible nondisplaced distal fibular fracture and evidence of soft tissue swelling/injury. [facility] Medical History (Updated 03/31/21 @ 21:[address] Carey Craig MD) History of atrial fibrillation History of prostate cancer HTN (hypertension) Skew deviation of eye, left Home Medications apixaban 5 mg PO BID #74 tab 08/16/19 [Rx Last Taken 03/30/21] hydrochlorothiazide 12.5 mg PO DAILY 03/31/21 [History Last Taken 03/30/21] metoprolol tartrate 25 mg PO DAILY 03/31/21 [History Last Taken 03/30/21] vit C,I-Zn-brivn-lutein-zeaxan [PreserVision AREDS-2] 2 tab PO DAILY 03/31/21 [History Last Taken Unknown] Allergy/AdvReac Type Severity Reaction Status Date / Time acyclovir Allergy PT UNSURE Verified 08/19/19 07:57 OF REACTION Family History (Updated 03/31/21 @ 21:[address] Carey Craig MD) Mother Hypertension HLD (hyperlipidemia) CVA (cerebral vascular accident) Father Parkinson disease Surgical History (Updated 03/31/21 @ 21:[address] Carey Craig MD) History of surgery on arm S/P appendectomy Social History (Updated 03/31/21 @ 21:[address] Carey Craig MD) household members: none Smoking Status: Never smoker alcohol intake: never substance use type: does not use ROS ROS Narrative Admission Review of Systems: CONSTITUTIONAL: No weight loss, fever, chills, + weakness or fatigue. HEENT: + Chronic L eye lateral deviation. Eyes: No visual loss, blurred vision, double vision or yellow sclerae. Ears, Nose, Throat: No hearing loss, sneezing, congestion, runny nose or sore throat. SKIN: + LLE wound, RUE discolored. CARDIOVASCULAR: No chest pain, chest pressure or chest discomfort, palpitations, edema, orthopnea, syncopal events. RESPIRATORY: No shortness of breath, cough or sputum, wheezing, hemoptysis. GASTROINTESTINAL: No anorexia, nausea, vomiting or diarrhea, abdominal pain, melena, BRBPR. GENITOURINARY: No dysuria, frequency, urgency or retention. NEUROLOGICAL: No headache, dizziness, syncope, paralysis, ataxia, numbness or tingling in the extremities, focal weakness, change in bowel or bladder control, seizure. MUSCULOSKELETAL: + muscle, back pain, joint pain or stiffness. HEMATOLOGIC: + anemia, bleeding or bruising. LYMPHATICS: No enlarged nodes. No history of splenectomy. PSYCHIATRIC: No history of depression or anxiety. ENDOCRINOLOGIC: No reports of sweating, cold or heat intolerance. No polyuria or polydipsia. ALLERGIES: No history of asthma, hives, eczema or rhinitis. Vital Signs Vital Signs Vital Signs: 03/31/21 11:28 03/31/21 12:31 Temperature 96.8 F L 96.8 F L Temperature Source Temporal Temporal Pulse Rate 102 H 102 H Respiratory Rate 24 H 24 H Respiratory Effort Normal Blood Pressure 144/131 H 144/131 H Blood Pressure Mean 135 135 Pulse Ox 98 98 Oxygen Delivery Method Room Air Room Air Weight Weight: 200 lb Body Mass Index (BMI) 25.7 Physical Exam Narrative Physical Examination: General: Awake, alert, oriented to self, place and recent events, answering questions appropriately per discussion with patient family who is present specifically his sister, remains cooperative, seated upright in the ED with no acute distress, denying any pain even at the region of patient's left lower extremity wound and suppose a potential fracture initially on evaluation. Skin: Normal color, normal turgor, no icterus, no cyanosis except notable atypical appearing left lower extremity approximate 10 to 15 cm x 5 to 7 cm wound with almost denuded region in the center with no periwound erythema no drainage as well as minimally tender to palpation. HEENT: AT/NC, EOM right eye intact, left eye with chronic left-sided eye deviation unchanged per discussion with patient, PERRLA, dry MM, no carotid bruits or JVD noted. Lungs: Diminished, greater bases, moderate effort, no distress evident, no rales, ronchi or wheezing. Heart: Irregular; no gallop, rub audible. Abdomen: Soft, NTTP, ND, distant mildly hyperactive BS, no obvious evidence of HSM. Extremities: No cyanosis, no clubbing clubbing, or marked edema, see skin with left lower extremity wound, no pain with palpation of the leg despite distal fibular fracture. Neurological: Patient awake, alert, oriented x 3, cognitive function intact; pupils equally reactive to light and accommodation, cranial nerves grossly normal except chronic left eye lateral deviation, moving all 4 extremities, no focal deficits, strength moderately to severely global decreased secondary to acute presentation. Psychiatric: Affect appears fatigued, flat, no acute evidence of depressive or anxiety feelings. Results Lab / Micro Data Result Diagrams: 03/31/21 11:40 03/31/21 11:40 Labs: Laboratory Results - last 24 hr 03/31/21 11:40: WBC 16.5 H, RBC 5.82, Hgb 16.2, Hct 49.1, MCV 84.4, MCH 27.8, MCHC 33.0, RDW Std Deviation 43.8, RDW Coeff of Alfonso 14.3, Plt Count 150, MPV 12.1 H, Immature Gran % (Auto) 0.700, Neut % (Auto) 85.6 H, Lymph % (Auto) 4.8 L , Kern % (Auto) 8.7, Eos % (Auto) 0.0, Baso % (Auto) 0.2, Absolute Neuts (auto) 14.1 H, Absolute Lymphs (auto) 0.79 L, Nucleated RBC % 0 03/31/21 11:40: PT 16.6 H, INR 1.4, APTT 35.2 03/31/21 11:40: Sodium 141, Potassium 4.0, Chloride 104, Carbon Dioxide 24.0, Anion Gap 13, BUN 31 H, Creatinine 3.11 H, Estim Creat Clear Calc 21.29, Est GFR (MDRD) Af Amer 25 L, Est GFR (MDRD) Non-Af 21 L, BUN/Creatinine Ratio 10.0, Glucose 191 H, Calcium 9.1, Total Bilirubin 1.20 H, AST 447 H, ALT 111 H, Alkaline Phosphatase 76, Total Creatine Kinase 19613 H, Troponin I High Sens 64, Total Protein 7.4, Albumin 3.5, Globulin 3.9, Albumin/Globulin Ratio 0.9 03/31/21 11:40: Lactic Acid 4.5 H* Micro: Microbiology 03/31/21 12:50 Nasal Secretion SARS-CoV-2 Antigen (Rapid) - Final Radiology Impression Brain CT 03/31/21 11:55 IMPRESSION: No acute intracranial hemorrhage or mass effect. Electronically Signed: Jaime Aguiar MD ([place]) at 13:26 EST , Service support , Cervical Spine CT 03/31/21 11:55 IMPRESSION: No acute findings in the cervical spine. Electronically Signed: Jaime Aguiar MD (Brooks) at 13:28 EST , Service support , Chest X-Ray 03/31/21 11:55 IMPRESSION: Nonacute portable x-ray examination of the chest. Electronically Signed: Jaime Aguiar MD (Brooks) at 13:32 EST , Service support , Tibia/Fibula X-Ray 03/31/21 11:55 IMPRESSION: 1. Possible nondisplaced distal fibular fracture, Cora Wilkes recommend correlating with clinical palpation. 2. Soft tissue swelling/injury. Electronically Signed: Jaime Aguiar MD (Brooks) at 13:31 EST , Service support , Assessment & Plan Assessment/Plan (1) Acute renal failure due to rhabdomyolysis: PLAN: The patient is an 80 y/o M w/ PMHx: Chronic Atrial Fibrillation, Suspected CKD but unclear stage or subtype, HTN, prior Hx shingles infection with L eye gaze defect chronically who presents to the [facility] ED on 03/31/21 with history of mechanical fall the evening prior potentially although unclear exact downtime, found in later in the day of day of ED presentation on the ground although he denies fall but on examination he has a denuded injury on the L knee and pena and notable and when he was found he was laying directly on the right upper extremity in an odd position which was discolored and had not been the day prior per discussion with patient's family. #1. Suspected potential mechanical fall with associated severe acute rhabdomyolysis: Patient with concurrent acute kidney injury and elevated LFTs as well as bilirubin and lactic acidosis likely secondary to rhabdomyolysis, will admit to PCU, maintain on telemetry monitoring, continue significantly aggressive hydration, monitor urine output closely and readjust IV fluids if necessary, trend CMP as well as creatinine kinase, frequent positional changes, PT/OT/case management consultations for discharge planning as some concerns about patient self-care. #2. Acute kidney injury with suspected underlying chronic kidney disease but unclear stage or subtype with minimal comparisons available: Secondary to acute rhabdomyolysis as noted as primary etiology. Admission BUN/Cr 3.11, prior baseline creatinine noted to be 08/16/2019 1.41 however it did increase 08/19/2019 to 2.57 but unclear historical nature and could have certainly been an acute kidney injury. Will continue to aggressively hydrate, hold nephrotoxic medications and repeat chemistry in AM. If no improvement would plan FeNa and renal ultrasound assessment. #3. Lactic acidosis: Secondary to acute presentation as noted with acute rhabdomyolysis with acute kidney injury and transaminitis associated, continue aggressive hydration, repeat lactic acid per facility protocol. #4. Elevated LFTs, elevated bilirubin: Likely secondary to acute rhabdomyolysis, admission total bilirubin 1.20, AST/ALT 447/111, alk phos 76, will continue aggressive hydration as noted for treatment of acute rhabdomyolysis, repeat CMP in a.m., if not improving would obtain liver ultrasound and hepatitis panel. #5. Non-displaced distal fibular fracture: Plain film in the ED noted a nond isplaced distal fibula fracture however patient did not have any pain on palpation of the region therefore given concurrent wound CT of the lower extremity was obtained and did confirm a nondisplaced distal fibular fracture. The image was reviewed and discussed with orthopedic surgery Dr. Boyce who recommended weightbearing as tolerated and noted there would be no surgical intervention necessity. We will not obtain formal consult at this time but if any concerns arise we request their involvement. #6. Left lower extremity wound: Suspected secondary to recent fall versus alternate injury, very atypical appearance, almost appears like an ulceration and notes it only recently happened, will request surgery involvement and in the interim we will hold patient Eliquis and transition to heparin drip in case of any operative intervention needs. Will request wound RN consultation and iris nue dressing care pending their evaluation. #7. Hyperglycemia: Admission glucose 191, possibly stress response, HgBA1c requested to be cautious and will transition to ADA diet with ISS/accu checks if notable with nutrition consultation and teaching. #8. Leukocytosis: CBC with elevated WBC as well as left shift and lymphopenia, potentially secondary to acute presentation with acute rhabdomyolysis, acute kidney injury, dehydration, chest x-ray with no acute cardiopulmonary findings, will obtain urinalysis/urine culture to be cautious, wound to the left lower extremity atypical appearing but no obvious significant periwound erythema or drainage noted, procalcitonin requested. #9. Chronic atrial fibrillation: We will continue patient home metoprolol, holding apixaban with transition to heparin drip at next dose in case of any operative intervention needs given notable presence of the left lower extremity wound, awaiting surgery evaluation. #10. Hypertension: Continue home regimen including metoprolol, hold hydrochlorothiazide given LILLY as noted, PRN hydralazine. #11. DVT prophylaxis: SCDs, holding patient home Eliquis therapy with transition to heparin drip at next dose due given acute presentation as noted above. #12. CODE status: Patient does not have healthcare power of traveling engineer nor living will in place. Discussed with both him and his sister who is present CODE sta tus at length including difference between FULL code, DNR-CCA and DNR-CC status. Following discussions about the differences in these status, requested DNR-CCA, no intubation status. Advanced Care Planning Face to Face Time: 16 minutes. Charges/Coding Visit Charges Inpatient E&M: 43737 Init Hosp L3 Procedures Hospitalists Procedures: 56135 Advncd Care Plan 30 Min
[2021-03-31] MEDS: Lactated Ringers 1,000 ML 250 ML IV (14:26)
[2021-03-31 16:00] LABS: Reflex Lactate? Y
[2021-03-31 16:09] LABS: Magnesium 2.7 mg/dL (1.6-2.6); Phosphorus 3.6 mg/dL (2.5-4.9)
[2021-03-31 16:16] LABS: Hemoglobin A1c 5.7 % (3.8-5.6)
--- NOTE | 2021-03-31 16:33 | CT_ITS ---
EXAM: CT LEFT LOWER EXTREMITY WITHOUT INTRAVENOUS CONTRAST CLINICAL INDICATION: Possible L distal fibular fracture, L knee wound TECHNIQUE: Helically acquired images were obtained of the left lower extremity without intravenous contrast. 2-D reformats were performed by the technologist. This CT exam was performed using one or more of the following dose reduction techniques: automated exposure control, adjustment of the mA and/or kV according to patient size, and/or use of iterative reconstruction technique. This report was created using [employer] report generation technology. COMPARISON: xr of the same day. FINDINGS: BONES/JOINTS: Suprapatellar effusion. There is a small nondisplaced distal fibular fracture. Se 601 IM: 37 and SE 602 Im: 57. Degenerative findings of the knee. SOFT TISSUES: Soft tissues swelling at the level of the knee and left lower extremity suggesting edema. No radiopaque foreign body. VASCULATURE: There are atherosclerotic vascular calcifications. Multiple varicose veins. CT/Extremity Lower without Contra IMPRESSION: 1. Suprapatellar effusion. 2. Soft tissues swelling at the level of the knee and left lower extremity suggesting edema. 3. There is a small nondisplaced distal fibular fracture. Se 601 IM: 37 and SE 602 Im: 57. Electronically Signed: Sreekanth Rojo MD at 20:44 EST , Service support ,
[2021-03-31 17:21] LABS: Troponin-I HS 80 pg/mL (3.0-78.0)
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
[2021-03-31 17:23] LABS: Lactic Acid 2.6 mmol/L (0.4-1.9)
[2021-03-31] MEDS: 0.9% Normal Saline 1,000 ML 250 ML IV (18:22)
[2021-03-31] MEDS: Heparin Injection (Vial) 5,000 UNIT/ML VIAL 6000 UNIT IV (18:23)
[2021-03-31] MEDS: dilTIAZem CD 120 MG Capsule PO (18:26)
[2021-03-31 18:27] LABS: Troponin-I HS 87 pg/mL (3.0-78.0)
[2021-03-31] MEDS: MELATONIN 3 MG TABLET PO (21:45)
[2021-03-31] MEDS: BENZOCAINE/MENTHOL 1 LOZENGE MUCOUS MEM (21:45)
[2021-03-31] MEDS: Silver Sulfadiazine 1% Crm 50 gm Bottle 1 APPLIC TOPICAL (21:46)
[2021-03-31 21:53] LABS: Procalcitonin 2.47 ng/mL (0.00-0.09)
[2021-04-01] VITALS (9 sets, daily range): BP systolic 109–130; BP diastolic 60–84; PULSE 77–111; RESP 14–18; TEMP 36.6–37.1; O2SAT 93–98
[2021-04-01] MEDS: 0.9% Normal Saline 1,000 ML 250 ML IV ×7 (02:41→23:42)
[2021-04-01 04:58] LABS: Absolute Lymphocyte Count 1.16 X10^3/uL (0.83-4.51); Absolute Neutrophil Count 14.3 X10^3/uL (2.0-7.7); Basophil# 0.05 X10^3/uL; Basophil% 0.3 % (0-1); Eosinophil# 0.01 X10^3/uL; Eosinophils% 0.1 % (0-5); Hematocrit 43.7 % (40-54); Hemoglobin 15.4 g/dL (13.0-16.5); Lymphocyte # 1.16 X10^3/ul (0.83-4.51); Lymphocyte % 6.7 % (19-41); Mean Corp Hgb Conc 35.2 g/dL (32-36); Mean Corpuscular Hgb 28.5 pg (27.0-32.0); Mean Corpuscular Volume 80.8 fL (80-94); Mean Platelet Vol. 11.3 fl (6.2-12.0); Monocyte# 1.75 X10^3/uL; Monocyte% 10.1 % (0-10); NRBC Flagged by Analyzer 0 % (0-5); Neutrophil # 14.34 X10^3/uL (2.7-7.7); Neutrophil % 82.2 % (47-70); POSITIVE COUNT YES; POSITIVE DIFFERENTIAL YES; Platelet Count 102 K/mm3 (150-450); RBC Distribution Width CV 14.4 % (11.6-14.6); RBC Distribution Width SD 42.1 fl (35.1-43.9); Red Blood Count 5.41 M/mm3 (4.6-6.2); White Blood Count 17.4 K/mm3 (4.4-11.0)
[2021-04-01 05:02] LABS: Differential Indicated SCAN CRITERIA MET
[2021-04-01 06:45] LABS: ALB/GLOB Ratio 0.6 RATIO (0.9-2.4); AST(SGOT) 593 U/L (15-37); Alanine Aminotransfer ALT/SGPT 155 U/L (16-61); Albumin, Serum 1.9 g/dL (3.2-5.0); Alkaline Phosphatase 51 U/L (45-117); Anion Gap 9 (5-15); BUN 49 mg/dL (7-18); BUN/Creat Ratio 12.6 RATIO (10-20); Calcium,Total 7.1 mg/dL (8.5-10.1); Chloride 113 mmol/L (98-107); Creatinine, Serum 3.89 mg/dL (0.70-1.30); EST Glomerular Filtration Rate 16 mL/min (>60); Est Glom Filt Rate - Afr Amer 19 mL/min (>60); Estimated Creatinine Clearance 17.02 ml/min; Globulin 3.3 g/dL (2.2-4.2); Glucose 101 mg/dL (74-106); Protein, Total 5.2 g/dL (6.4-8.2); Sodium Level 141 mmol/L (136-145)
[2021-04-01] MEDS: Metoprolol Tartrate 25 MG Tablet PO (09:10)
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
[2021-04-01 10:31] LABS: Partial Thromboplast Time 84.2 Seconds (24.1-36.2)
--- NOTE | 2021-04-01 10:48 | CASEMGMT ---
Face to Face with patient for initial transition planning/care coordination assessment. DREA GRADY introduced self and role at [facility], voices understanding. Care providers, pharmacy, and demographics verified. PCP: Alin Specialists: None Preferred Pharmacy: [facility]) Insurance: [facility] Prescription Benefit: Yes Living Will/HPOA: Pt states he has a living will but is unsure if has HPOA. States his state attorney or Dr. Ogden would have copies if he did have them. States his sister Jordyn Orantes would be his designated HPOA. LNOK: sister Jordyn Orantes Living Arrangements: Pt lives alone in a three story home (walk out basement and then two floors above the basement). Pt states he primarily resides in the basement and first floor, denies difficulty with the steps between these two floors, a handrail is present. States he can enter either of these floors without steps. Pt states he has been independent with ADLS and prepares his own meals. States he has a admin secretary that cleans for a couple of hours every 3 weeks. Pt states his sister is available to assist him whenever he asks. Transportation: Pt drives himself and states his sister could drive him if needed. DME/HHC/SNF: Pt denies any current DME or previous HH or SNF needs Discussed current ability including need for wound care and assistance with ambulation. Pt states his sister would be able to assist him with dressing changes. Pt feels he would be able to ambulate at home stating that here he relies on staff because they are present but that at home he would just do it because he would have to. Pt open to home health if needed and discussed need for PT to evaluate his ability to ambulate independently in his home. Plan: HH vs SNF pending PT evaluation. Brittany Wiggins RN CM
[2021-04-01] MEDS: Acetaminophen 325 MG Tablet 650 MG PO (11:24)
[2021-04-01] MEDS: Silver Sulfadiazine 1% Crm 50 gm Bottle 1 APPLIC TOPICAL ×2 (11:25→20:08)
[2021-04-01] MEDS: Neomycin/Bacitracin/Polymyxin Ointment 1 APPLIC TOPICAL (13:38)
[2021-04-01 14:24] LABS: Color, Urine Yellow (Yellow); Glucose, Dipstick 50 mg/dl (Normal); Ketone-Dipstick 5 mg/dl (Negative); Leukocyte Esterase-Dipstick 25 /ul (Negative); Nitrite-Dipstick Negative (Negative); Occult Blood-Urine 250 /ul (Negative); Protein-Dipstick 100 mg/dl (Negative); Specific Gravity, Urine 1.015 (1.002-1.030); Urine Bilirubin Dipstick Negative (Negative); Urine Clarity Cloudy (Clear); Urine Urobilinogen Normal (Normal)
[2021-04-01 14:31] LABS: Amorphous Sediment 2+; Bacteria 2+ /hpf (None Seen); Hyaline Cast 0-5 SEEN /lpf (0-5); Mucous, Urine 1+ /hpf (<or=2+); Red Blood Cells-Urine 5-10 SEEN /hpf (0-5); Squamous Epithelial Cells - UA 0-5 SEEN /hpf (0-5); White Blood Cells 0-5 SEEN /hpf (0-5)
[2021-04-01 16:56] LABS: Partial Thromboplast Time 72.3 Seconds (24.1-36.2)
--- NOTE | 2021-04-01 18:20 | CASEMGMT ---
SOCIAL WORK Referral Source: CM Reason for Consult: Discharge Planning-SNF Met with patient in room. Introduced role and reason for referral. Patient reports will need rehab at discharge and request referral to [facility] as first choice and [facility] as second choice. Referral called to Stacey at [facility]. Stacey lovell will review and get back to this worker. Plan: SNF-referral faxed to [facility] HEATHER Lemon, WILD LIFE MANAGER
[2021-04-01 19:05] LABS: CPK Total, Creatine Kinase 16840 U/L (39-308)
[2021-04-01 23:49] LABS: Partial Thromboplast Time 102.7 Seconds (24.1-36.2)
[2021-04-02] VITALS (11 sets, daily range): BP systolic 117–150; BP diastolic 68–85; PULSE 75–122; RESP 16–18; TEMP 36.8–37.7; O2SAT 96–99
[2021-04-02] MEDS: 0.9% Normal Saline 1,000 ML 250 ML IV ×2 (04:58→08:38)
[2021-04-02 08:25] LABS: Partial Thromboplast Time 64.7 Seconds (24.1-36.2)
[2021-04-02] MEDS: Juven (unflavored) Packet 1 PACKET PO ×2 (08:40→16:04)
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
[2021-04-02] MEDS: Metoprolol Tartrate 25 MG Tablet PO (09:27)
[2021-04-02] MEDS: Neomycin/Bacitracin/Polymyxin Ointment 1 APPLIC TOPICAL (09:28)
[2021-04-02] MEDS: Silver Sulfadiazine 1% Crm 50 gm Bottle 1 APPLIC TOPICAL ×2 (09:28→23:00)
[2021-04-02 09:41] LABS: Absolute Lymphocyte Count 0.67 X10^3/uL (0.83-4.51); Absolute Neutrophil Count 4.2 X10^3/uL (2.0-7.7); Basophil# 0.01 X10^3/uL; Basophil% 0.2 % (0-1); Hematocrit 29.8 % (40-54); Hemoglobin 9.7 g/dL (13.0-16.5); Lymphocyte # 0.67 X10^3/ul (0.83-4.51); Lymphocyte % 11.4 % (19-41); Mean Corp Hgb Conc 32.6 g/dL (32-36); Mean Corpuscular Volume 85.9 fL (80-94); Mean Platelet Vol. 12.8 fl (6.2-12.0); Monocyte# 0.98 X10^3/uL; Monocyte% 16.7 % (0-10); NRBC Flagged by Analyzer 0 % (0-5); Neutrophil # 4.18 X10^3/uL (2.7-7.7); Neutrophil % 71.4 % (47-70); Platelet Count 101 K/mm3 (150-450); RBC Distribution Width CV 14.7 % (11.6-14.6); RBC Distribution Width SD 46.1 fl (35.1-43.9); Red Blood Count 3.47 M/mm3 (4.6-6.2); White Blood Count 5.9 K/mm3 (4.4-11.0)
[2021-04-02 09:48] LABS: Differential Indicated SCAN CRITERIA MET
[2021-04-02 10:04] LABS: Anion Gap 10 (5-15); BUN 67 mg/dL (7-18); BUN/Creat Ratio 12.4 RATIO (10-20); Calcium,Total 6.9 mg/dL (8.5-10.1); Chloride 117 mmol/L (98-107); Creatinine, Serum 5.41 mg/dL (0.70-1.30); EST Glomerular Filtration Rate 11 mL/min (>60); Est Glom Filt Rate - Afr Amer 13 mL/min (>60); Estimated Creatinine Clearance 12.24 ml/min; Glucose 89 mg/dL (74-106); Potassium 3.9 mmol/L (3.5-5.1); Sodium Level 143 mmol/L (136-145)
[2021-04-02 11:00] LABS: CPK Total, Creatine Kinase 12187 U/L (39-308)
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
[2021-04-02 11:28] LABS: Urea Nitrogen, Urine 265 mg/dL (NO RANGE EST.)
[2021-04-02] MEDS: Lactated Ringers 1,000 ML 150 ML IV ×2 (12:16→18:18)
[2021-04-02] MEDS: Acetaminophen 325 MG Tablet 650 MG PO (13:15)
[2021-04-02 15:24] LABS: Partial Thromboplast Time 49.8 Seconds (24.1-36.2)
[2021-04-02] MEDS: Heparin Injection (Vial) 5,000 UNIT/ML VIAL IV (15:32)
--- NOTE | 2021-04-02 16:16 | PCS.PANDOC ---
PANDEMIC DOCUMENTATION INITIATED: Date: 11/15/2020 Time: 190
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
[2021-04-02 22:38] LABS: Partial Thromboplast Time 78.8 Seconds (24.1-36.2)
[2021-04-03] VITALS (8 sets, daily range): BP systolic 144–162; BP diastolic 76–85; PULSE 80–116; RESP 18; TEMP 36.7–37.6; O2SAT 92–95
[2021-04-03] MEDS: Lactated Ringers 1,000 ML 150 ML IV ×4 (00:46→21:09)
--- NOTE | 2021-04-03 05:00 | NURSING ---
aptt was due to be drawn and ordered for 0344 lab to be on floor soon, lab states problem with system
[2021-04-03 05:47] LABS: Absolute Lymphocyte Count 0.82 X10^3/uL (0.83-4.51); Absolute Neutrophil Count 5.1 X10^3/uL (2.0-7.7); Basophil# 0.01 X10^3/uL; Basophil% 0.1 % (0-1); Hematocrit 26.7 % (40-54); Hemoglobin 8.7 g/dL (13.0-16.5); Lymphocyte # 0.82 X10^3/ul (0.83-4.51); Lymphocyte % 11.9 % (19-41); Mean Corp Hgb Conc 32.6 g/dL (32-36); Mean Corpuscular Hgb 27.7 pg (27.0-32.0); Mean Platelet Vol. 12.2 fl (6.2-12.0); Monocyte% 13.1 % (0-10); NRBC Flagged by Analyzer 0 % (0-5); Neutrophil # 5.12 X10^3/uL (2.7-7.7); Neutrophil % 74.5 % (47-70); Platelet Count 106 K/mm3 (150-450); RBC Distribution Width CV 14.8 % (11.6-14.6); RBC Distribution Width SD 45.8 fl (35.1-43.9); Red Blood Count 3.14 M/mm3 (4.6-6.2); White Blood Count 6.9 K/mm3 (4.4-11.0)
[2021-04-03 06:01] LABS: Anion Gap 10 (5-15); BUN 81 mg/dL (7-18); BUN/Creat Ratio 13.4 RATIO (10-20); Calcium,Total 6.9 mg/dL (8.5-10.1); Chloride 114 mmol/L (98-107); Creatinine, Serum 6.04 mg/dL (0.70-1.30); EST Glomerular Filtration Rate 10 mL/min (>60); Est Glom Filt Rate - Afr Amer 12 mL/min (>60); Estimated Creatinine Clearance 10.96 ml/min; Glucose 89 mg/dL (74-106); Potassium 4.2 mmol/L (3.5-5.1); Sodium Level 141 mmol/L (136-145)
[2021-04-03 06:05] LABS: Phosphorus 4.5 mg/dL (2.5-4.9)
[2021-04-03 07:07] LABS: Partial Thromboplast Time 65.4 Seconds (24.1-36.2)
[2021-04-03] MEDS: Juven (unflavored) Packet 1 PACKET PO ×2 (08:34→16:45)
[2021-04-03] MEDS: Silver Sulfadiazine 1% Crm 50 gm Bottle 1 APPLIC TOPICAL ×2 (08:34→21:11)
[2021-04-03] MEDS: Neomycin/Bacitracin/Polymyxin Ointment 1 APPLIC TOPICAL (08:35)
[2021-04-03] MEDS: Metoprolol Tartrate 25 MG Tablet PO (08:36)
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
[2021-04-03] MEDS: Acetaminophen 325 MG Tablet 650 MG PO (21:10)
[2021-04-04] VITALS (13 sets, daily range): BP systolic 120–149; BP diastolic 65–80; PULSE 102–123; RESP 16–26; TEMP 36.6–38.6; O2SAT 94–97
[2021-04-04] MEDS: Lactated Ringers 1,000 ML 150 ML IV (03:43)
[2021-04-04 06:18] LABS: Absolute Lymphocyte Count 1.01 X10^3/uL (0.83-4.51); Absolute Neutrophil Count 6.8 X10^3/uL (2.0-7.7); Basophil# 0.01 X10^3/uL; Basophil% 0.1 % (0-1); Hematocrit 23.8 % (40-54); Lymphocyte # 1.01 X10^3/ul (0.83-4.51); Lymphocyte % 11.6 % (19-41); Mean Corp Hgb Conc 33.6 g/dL (32-36); Mean Corpuscular Hgb 28.4 pg (27.0-32.0); Mean Corpuscular Volume 84.4 fL (80-94); Monocyte# 0.87 X10^3/uL; NRBC Flagged by Analyzer 0 % (0-5); Neutrophil # 6.75 X10^3/uL (2.7-7.7); Neutrophil % 77.6 % (47-70); Platelet Count 113 K/mm3 (150-450); RBC Distribution Width CV 14.6 % (11.6-14.6); RBC Distribution Width SD 44.9 fl (35.1-43.9); Red Blood Count 2.82 M/mm3 (4.6-6.2); White Blood Count 8.7 K/mm3 (4.4-11.0)
[2021-04-04 06:39] LABS: Anion Gap 10 (5-15); BUN 99 mg/dL (7-18); BUN/Creat Ratio 15.7 RATIO (10-20); Calcium,Total 7.4 mg/dL (8.5-10.1); Chloride 114 mmol/L (98-107); EST Glomerular Filtration Rate 9 mL/min (>60); Est Glom Filt Rate - Afr Amer 11 mL/min (>60); Estimated Creatinine Clearance 10.51 ml/min; Glucose 92 mg/dL (74-106); Sodium Level 143 mmol/L (136-145)
--- NOTE | 2021-04-04 07:00 | US_ITS ---
STUDY: RENAL ULTRASOUND - COMPLETE REASON FOR EXAM: Male, 80 years old. ILLLY TECHNIQUE: Ultrasound evaluation of the kidneys was performed with real-time and static ramirez-scale imaging. COMPARISON: None. FINDINGS: RIGHT KIDNEY: Normal location of the right kidney, which is normal in size. The right kidney measures 10.8 cm in length. There is a normal cortex of the right kidney. There is no right renal mass or cyst. There are no right renal calculi. There is no right hydronephrosis. LEFT KIDNEY: Normal location of the left kidney, which is normal in size. The left kidney measures 13.3 cm in length. There is a normal cortex of the left kidney. There is no left renal mass or cyst. There are no left renal calculi. There is no left hydronephrosis. BLADDER: There is a Wong catheter within an incompletely distended urinary bladder. US/Kidney and Bladder IMPRESSION: Within normal limits ultrasound of the kidneys . Electronically Signed: Ann Trujillo MD at 13:03 EST Tel , Service support ,
[2021-04-04 07:04] LABS: CPK Total, Creatine Kinase 6750 U/L (39-308)
[2021-04-04 07:06] LABS: Partial Thromboplast Time 71.7 Seconds (24.1-36.2)
[2021-04-04] MEDS: Juven (unflavored) Packet 1 PACKET PO ×2 (09:48→16:51)
[2021-04-04] MEDS: Metoprolol Tartrate 25 MG Tablet PO ×2 (09:48→16:51)
[2021-04-04 11:15] LABS: Hematocrit 24.5 % (40-54); Hemoglobin 8.1 g/dL (13.0-16.5)
--- NOTE | 2021-04-04 11:28 | PN.RENAL_ITS ---
Subjective Subjective Following for LILLY on CKD. The patient still has poor appetite per his sister. He has some shortness of breath with activity and increasing edema. Urine output has been marginal over the weekend. There is no chest pain, nausea, or vomiting. There is no diarrhea. Objective Data Objective Data Vital Signs: Vital Signs Temp Pulse Resp BP Pulse Ox 98.2 F 120 H 18 133/80 H 97 04/04/21 03:39 04/04/21 09:48 04/04/21 03:39 04/04/21 09:48 04/04/21 03:39 Oxygen Delivery Method Room Air Weight: 101.8 kg Body Mass Index (BMI) 25.0 Intake & Output: Intake and Output for Last 24 Hours 04/02/21 04/03/21 04/04/21 23:59 23:59 23:59 Intake Total 4798.00 / 4798.00 4036.73 / 4336.73 2549.43 / 2549.43 Output Total 750 / 1500 1750 / 2400 1000 / 1000 Balance 4048.00 / 3298.00 2286.73 / 1936.73 1549.43 / 1549.43 Lab / Micro Data Result Diagrams: 04/04/21 11:05 04/04/21 05:34 Labs: Laboratory Results - last 24 hr 04/04/21 05:34: WBC 8.7, RBC 2.82 L, Hgb 8.0 L, Hct 23.8 L, MCV 84.4, MCH 28.4, MCHC 33.6, RDW Std Deviation 44.9 H, RDW Coeff of Alfonso 14.6, Plt Count 113 L, MPV 12.0, Immature Gran % (Auto) 0.700, Neut % (Auto) 77.6 H, Lymph % (Auto) 11.6 L, [place] % (Auto) 10.0, Eos % (Auto) 0.0, Baso % (Auto) 0.1, Absolute Neuts (auto) 6.8, Absolute Lymphs (auto) 1.01, Nucleated RBC % 0 04/04/21 05:34: Sodium 143, Potassium 4.0, Chloride 114 H, Carbon Dioxide 19.0 L , Anion Gap 10, BUN 99 H, Creatinine 6.30 H, Estim Creat Clear Calc 10.51, Est GFR (MDRD) Af Amer 11 L, Est GFR (MDRD) Non-Af 9 L, BUN/Creatinine Ratio 15.7, Glucose 92, Calcium 7.4 L 04/04/21 05:34: APTT 71.7 H 04/04/21 05:34: Total Creatine Kinase 6750 H 04/04/21 11:05: Hgb 8.1 L, Hct 24.5 L Micro: Microbiology 04/01/21 Unknown Urine, Clean Catch Urine Culture - Final Mixed Gram Positive Organisms 03/31/21 12:50 Nasal Secretion SARS-CoV-2 Antigen (Rapid) - Final Physical Exam Narrative General: Alert and oriented x3 no apparent distress HEENT: Normocephalic, atraumatic. Mucous membrane is moist. Neck: Supple, no JVD. Heart: Normal S1, S2. There is no rubs, murmurs or gallops. Lungs: Clear to auscultation bilaterally. Abdomen: Normal bowel sound, soft, nontender, no guarding or rebound. Extremities: Pulses intact. There is mild edema of the left lower extremity around 1+. There is no edema of the right lower extremity. There is full passive range of motion on all extremities. Assessment & Plan Assessment/Plan (1) LILLY (acute kidney injury): PLAN: The patient likely has nephrotoxic ATN from rhabdomyolysis and ischemic ATN from volume depletion. CT of the abdomen and pelvis on 04/01/2021 did not reveal any hydronephrosis. I have low suspicion for other causes of LILLY at this time. There is no overt uremic signs or symptoms. The patient is not hyperkalemic, and metabolic acidosis has improved. My 1 concern is that the patient is becoming volume overloaded. I will stop IV fluid since it is not helping his renal function. I will give a 1 time dose of IV Lasix today. We will see if we can convert the patient to a nonoliguric LILLY. Serum creatinine did go up today from 6.04 to 6.30 mg/dL over the last 24 hours. I am hoping that we are seeing plateauing of his creatinine rise. Nevertheless, I did tell the patient and his sister that dialysis may be necessary in the next 24 to 48 hours if there is further deterioration of renal function. We will recheck renal function again tomorrow. (2) Rhabdomyolysis: PLAN: Due to the compression of right upper arm muscles. CK is trending down. However, the patient likely sustained LILLY due to nephrotoxic ATN because of rhabdomyolysis. Continue current supportive care. (3) Hypocalcemia: PLAN: Hypocalcemia is likely due to rhabdomyolysis as well. Calcium level is improving. There is no need for calcium supplementation in this setting. (4) Metabolic acidosis: PLAN: Likely due to LILLY. Serum bicarbonate level is better at 19 mmol/L today. Serum bicarbonate level was 16 mmol/L on 04/02/2021. Recheck serum bicarbonate level tomorrow. No urgent need for dialysis or s upplemental sodium bicarbonate at this point.
[2021-04-04] MEDS: Furosemide 100 MG/10 ML Vial 80 MG IV (11:42)
[2021-04-04] MEDS: Silver Sulfadiazine 1% Crm 50 gm Bottle 1 APPLIC TOPICAL ×2 (11:43→20:03)
[2021-04-04] MEDS: Neomycin/Bacitracin/Polymyxin Ointment 1 APPLIC TOPICAL (11:44)
--- NOTE | 2021-04-04 12:07 | NURSING ---
catherine in to do drsg and take photos. sister at bedside looking on. iv fluids dc'd per nephrology and one time dose of lasix given. pt lungs clear upper and dim post this am but at times audible wheezing with exertions. pt francisco drsg change well. poor appetite contines. legs up on pillows in bed. pt a&ox3. no other needs noted. pt afebrile but still with afib and rvr hr 120's on monitor. hgb redrawn at 11 and was stable
--- NOTE | 2021-04-04 12:15 | WOUNDNOTE ---
wound photo: left lower leg
--- NOTE | 2021-04-04 14:10 | CHAPLAIN ---
Type of Pastoral Visit _x__ Initial Visit ___ Follow-up Visit ___ On-call Visit ___ General Patient Visit ___ Spiritual Assessment ___ Family Conference ___ Bereavement ___ Rapid Response ___ Code Blue ___ Other (describe below) Pastoral Care Referral From _x__ Patient ___ Family ___ Nurse ___ Physician ___ Library Circulation Technician ___ Electrical Cad Designer ___ Other (describe below) Sacrament/Intervention _x__ Active listening ___ Anointing ___ Confucianist ___ Bereavement ___ Communion ___ Destiney exploration ___ ___ Life review _x__ Prayer ___ Reconciliation ___ Sacrament of Sick ___ Supportive presence ___ Wedding ___ Other (describe below) Pastoral Comments patient just had some testing done; pt is alert; pt however states that he is not sure how he got to hospital; pt does report feeling better; pt is mostly slow in giving answers but is able to have conversation; pt is member of a congregational and would welcome prayer support for his recovery;
[2021-04-04 14:31] LABS: Pathologist Review Reviewed
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
[2021-04-04 17:49] LABS: AST(SGOT) 253 U/L (15-37); Alanine Aminotransfer ALT/SGPT 127 U/L (16-61); Albumin, Serum 1.5 g/dL (3.2-5.0); Alkaline Phosphatase 36 U/L (45-117); Bilirubin, Direct 0.19 mg/dL (0.00-0.30); Globulin 2.7 g/dL (2.2-4.2); Protein, Total 4.2 g/dL (6.4-8.2)
[2021-04-04] MEDS: Acetaminophen 325 MG Tablet 650 MG PO (20:09)
[2021-04-05] VITALS (22 sets, daily range): BP systolic 114–143; BP diastolic 56–81; PULSE 81–141; RESP 18–36; TEMP 36.2–37.7; O2SAT 92–98
[2021-04-05] MEDS: 0.9% Saline Lock 10 ML Syringe IV ×6 (04:08→22:43)
[2021-04-05] MEDS: dilTIAZem 25 MG/5 ML Vial 10 MG IV BOLUS ×2 (04:08→21:50)
[2021-04-05 06:25] LABS: Absolute Lymphocyte Count 0.79 X10^3/uL (0.83-4.51); Absolute Neutrophil Count 7.3 X10^3/uL (2.0-7.7); Basophil# 0.01 X10^3/uL; Basophil% 0.1 % (0-1); Hematocrit 24.5 % (40-54); Lymphocyte # 0.79 X10^3/ul (0.83-4.51); Lymphocyte % 8.5 % (19-41); Mean Corp Hgb Conc 32.7 g/dL (32-36); Mean Corpuscular Hgb 27.3 pg (27.0-32.0); Mean Corpuscular Volume 83.6 fL (80-94); Monocyte# 0.92 X10^3/uL; Monocyte% 9.9 % (0-10); NRBC Flagged by Analyzer 0 % (0-5); Neutrophil # 7.34 X10^3/uL (2.7-7.7); Neutrophil % 79.2 % (47-70); Platelet Count 141 K/mm3 (150-450); RBC Distribution Width CV 14.6 % (11.6-14.6); RBC Distribution Width SD 45.1 fl (35.1-43.9); Red Blood Count 2.93 M/mm3 (4.6-6.2); White Blood Count 9.3 K/mm3 (4.4-11.0)
[2021-04-05 07:05] LABS: AST(SGOT) 225 U/L (15-37); Alanine Aminotransfer ALT/SGPT 134 U/L (16-61); Albumin, Serum 1.6 g/dL (3.2-5.0); Alkaline Phosphatase 47 U/L (45-117); BUN 123 mg/dL (7-18); BUN/Creat Ratio 17.9 RATIO (10-20); Bilirubin, Direct 0.21 mg/dL (0.00-0.30); Calcium,Total 7.5 mg/dL (8.5-10.1); Chloride 113 mmol/L (98-107); Creatinine, Serum 6.87 mg/dL (0.70-1.30); EST Glomerular Filtration Rate 8 mL/min (>60); Est Glom Filt Rate - Afr Amer 10 mL/min (>60); Estimated Creatinine Clearance 9.64 ml/min; Glucose 109 mg/dL (74-106); Phosphorus 4.5 mg/dL (2.5-4.9); Potassium 4.4 mmol/L (3.5-5.1); Protein, Total 4.6 g/dL (6.4-8.2); Sodium Level 143 mmol/L (136-145)
[2021-04-05 07:25] LABS: CPK Total, Creatine Kinase 4436 U/L (39-308)
[2021-04-05] MEDS: Juven (unflavored) Packet 1 PACKET PO (08:59)
[2021-04-05] MEDS: Metoprolol Tartrate 50 MG Tablet PO (09:02)
--- NOTE | 2021-04-05 09:20 | RAD_ITS ---
STUDY: X-RAY CHEST REASON FOR EXAM: Male, 80 years old. Tachypnea TECHNIQUE: Single AP portable view of the chest. COMPARISON: Comparison is made with prior examination dated 03/31/2000 FINDINGS: EKG electrodes are seen. New patchy infiltrate in the left lower lobe as well as in the right upper lobe. There is no demonstrated pleural abnormality. Normal size heart. Normal mediastinum and raquel. Normal visualized pulmonary arteries. There is atherosclerotic calcification of the aortic arch with tortuosity. There are diffuse degenerative changes of the visualized thoracic spine. Normal visualized ribs, clavicles, and shoulders. There is no demonstrated abnormality of the visualized soft tissue structures of the upper abdomen. RAD/Chest 1 View (Portable) IMPRESSION: Bilateral pulmonary infiltrates. Electronically Signed: Wyatt Herring MD at 9:51 EST , Service support ,
--- NOTE | 2021-04-05 09:46 | CASEMGMT ---
Addendum entered by Tory Ly 04/05/21 10:19: Rojas at [facility] updated on LILLY referral and [facility] placement, voices understanding. CM to follow. Heidi SHEPARD CM Original Note: Per Dr. Vazquez, pt needs set up with OP HD and pt states no preference for HD facility. Pt's plan is to go to [facility] at discharge. Per Dr. Vazquez, pt is currently LILLY but he will verify previous labs with Dr. Ogden. Referral placed in [employer], [facility] portal and faxed to [facility] and [facility] at this time. Pt to have tunnel cath vs temp cath placed today by Dr. Lopez and then have first dialysis later today. CM to follow. Heidi SHEPARD CM
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
--- NOTE | 2021-04-05 09:52 | CASEMGMT ---
Addendum entered by Silvina Ferrera 04/05/21 10:14: TRAM received a return call from [facility] and they can accept patient. TRAM will fax updates. Silvina DORAN Original Note: TRAM called [facility] and spoke with [facility]. TRAM asked about referral and if they are able to accept patient. [facility] said she will talk with Pippa and get back to . TRAM let [facility] know that patient will be a new dialysis. Silvina DORAN
[2021-04-05] MEDS: Piperacil/Tazobactam 3.375 GM Q12 PREMIX IV ×2 (10:56→22:38)
[2021-04-05 11:21] LABS: Hepatitis B Surface Antibody Non-Reactive
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
[2021-04-05 11:37] LABS: Hepatitis B Surface Antigen Non-Reactive (Nonreactive)
[2021-04-05 11:47] LABS: Platelet Count 141 K/mm3 (150-450); RET-HE 26.9 pg (30-35); Reticulocyte Count 0.67 % (0.5-1.5)
[2021-04-05 11:54] LABS: Iron 13 ug/dL (65-175); Iron Binding Capacity,Total 198 ug/dL (250-450); PERCENT IRON SATURATION 6.6 % (15.0-55.0)
--- NOTE | 2021-04-05 13:03 | PN.SURG_ITS ---
Objective Data Objective Data Vital Signs: Vital Signs Temp Pulse Resp BP Pulse Ox 99.8 F H 113 H 20 H 128/63 H 94 04/05/21 12:03 04/05/21 12:03 04/05/21 12:03 04/05/21 12:03 04/05/21 12:03 Oxygen Flow Rate (L/min) 96 Oxygen Delivery Method Room Air Weight: 226 lb 10.163 oz Body Mass Index (BMI) 25.0 Intake & Output: Intake and Output for Last 24 Hours 04/03/21 04/04/21 04/05/21 23:59 23:59 23:59 Intake Total 4036.73 / 4336.73 3356.93 / 3356.93 397.77 / 397.77 Output Total 1750 / 2400 2400 / 2400 300 / 300 Balance 2286.73 / 1936.73 956.93 / 956.93 97.77 / 97.77 Lab / Micro Data Result Diagrams: 04/05/21 05:20 04/05/21 05:20 Labs: Laboratory Results - last 24 hr 03/31/21 11:40: Hep Bs Antibody Non-Reactive 03/31/21 11:40: Hep Bs Antigen Non-Reactive 04/01/21 04:46: Diff Path Review Reviewed 04/04/21 05:34: Total Bilirubin 0.50, Direct Bilirubin 0.19, AST 253 H, ALT 127 H, Alkaline Phosphatase 36 L, Total Protein 4.2 L, Albumin 1.5 L, Globulin 2.7 04/05/21 05:20: Sodium 143, Potassium 4.4, Chloride 113 H, Carbon Dioxide 19.0 L , BUN 123 H*, Creatinine 6.87 H, Estim Creat Clear Calc 9.64, Est GFR (MDRD) Af Amer 10 L, Est GFR (MDRD) Non-Af 8 L, BUN/Creatinine Ratio 17.9, Glucose 109 H, Calcium 7.5 L, Phosphorus 4.5, Total Bilirubin 0.60, Direct Bilirubin 0.21, AST 225 H, ALT 134 H, Alkaline Phosphatase 47, Total Protein 4.6 L, Albumin 1.6 L, Globulin 3.0 04/05/21 05:20: WBC 9.3, RBC 2.93 L, Hgb 8.0 L, Hct 24.5 L, MCV 83.6, MCH 27.3, MCHC 32.7, RDW Std Deviation 45.1 H, RDW Coeff of Alfonso 14.6, Plt Count 141 L, MPV 12.0, Immature Gran % (Auto) 2.300 H, Neut % (Auto) 79.2 H, Lymph % (Auto) 8.5 L , [place] % (Auto) 9.9, Eos % (Auto) 0.0, Baso % (Auto) 0.1, Absolute Neuts (auto) 7.3, Absolute Lymphs (auto) 0.79 L, Nucleated RBC % 0 04/05/21 05:20: Total Creatine Kinase 4436 H 04/05/21 05:20: Retic Count 0.67, Immature Retic Fraction 11.60, Retic Hgb Equivalent 26.9 L 04/05/21 05:20: Iron 13 L, TIBC 198 L, Iron Saturation 6.6 L Micro: Microbiology 04/01/21 Unknown Urine, Clean Catch Urine Culture - Final Mixed Gram Positive Organisms 03/31/21 12:50 Nasal Secretion SARS-CoV-2 Antigen (Rapid) - Final Radiography Diagnostic Testing: Radiology Impression Renal Ultrasound 04/04/21 07:00 IMPRESSION: Within normal limits ultrasound of the kidneys . Electronically Signed: Ann Trujillo MD at 13:03 EST Tel , Service support , Chest X-Ray 04/05/21 09:20 IMPRESSION: Bilateral pulmonary infiltrates. Electronically Signed: Wyatt Herring MD at 9:51 EST , Service support ,
--- NOTE | 2021-04-05 13:53 | CASEMGMT ---
Contact for [facility] admissions, Susu ext [phone] Heidi SHEPARD CM
[2021-04-05] MEDS: Midazolam 2 MG/2 ML Syringe IV (16:10)
--- NOTE | 2021-04-05 16:24 | CASEMGMT ---
TRAM faxed patient's dialysis schedule to [facility]. TRAM also wrote on fax face sheet that transportation will need set up. TRAM also called and left a voice mail stating the same. Silvina DORAN
[2021-04-05] MEDS: Neomycin/Bacitracin/Polymyxin Ointment 1 APPLIC TOPICAL (16:44)
[2021-04-05] MEDS: Silver Sulfadiazine 1% Crm 50 gm Bottle 1 APPLIC TOPICAL ×2 (16:44→22:48)
--- NOTE | 2021-04-05 18:10 | RAD_ITS ---
STUDY: X-RAY CHEST REASON FOR EXAM: Male, 80 years old. CHEST PAIN temp dialysis cath placement TECHNIQUE: XR Chest 1 View COMPARISON: Study done earlier today. FINDINGS: There are bilateral pleural effusions. There are bilateral infiltrates. There is no pneumothorax. There is a right IJ line. The tip is in the axilla. Normal size heart. Normal mediastinum and raquel. Normal visualized pulmonary arteries. There is atherosclerotic calcification of the aortic arch with tortuosity. There are diffuse degenerative changes of the visualized thoracic spine. There is degenerative osteoarthritis of the bilateral shoulders. There is no demonstrated abnormality of the visualized soft tissue structures of the upper abdomen. RAD/Chest 1 View (Portable) IMPRESSION: There are bilateral pleural effusions. There are bilateral infiltrates. Electronically Signed: Sreekanth Rojo MD at 18:56 EST , Service support ,
--- NOTE | 2021-04-05 19:04 | EX.PCM.CON.S ---
Assessment & Plan Assessment/Plan (1) LILLY (acute kidney injury): PLAN: request for dialysis catheter patient required dialysis today, will therefore place catheter today at bedside Patient informed risks/benefits and has signed consent. HPI Consult Data Date of Consult: 04/05/21 HPI Narrative HPI Narrative: BETO ANDRADE, is a 80 M who presents with renal failure and requiring dialysis. I was consulted by Dr. Burger for placement of dialysis access. We had discussed options of permanent tunneled versus percutaneous. Patient found to have COVID pneumonia developed today. Will therefore place percutaneous transient access at bedside. He has been off his heparin drip temporarily. [facility] Medical History History of atrial fibrillation History of prostate cancer HTN (hypertension) Skew deviation of eye, left Home Medications apixaban 5 mg PO BID #74 tab 08/16/19 [Rx Last Taken 03/30/21] hydrochlorothiazide 12.5 mg PO DAILY 03/31/21 [History Last Taken 03/30/21] metoprolol tartrate 25 mg PO DAILY 03/31/21 [History Last Taken 03/30/21] vit C,G-Yi-lnzux-lutein-zeaxan [PreserVision AREDS-2] 2 tab PO DAILY 03/31/21 [History Last Taken Unknown] Allergy/AdvReac Type Severity Reaction Status Date / Time acyclovir Allergy PT UNSURE Verified 08/19/19 07:57 OF REACTION Family History Mother Hypertension HLD (hyperlipidemia) CVA (cerebral vascular accident) Father Parkinson disease Surgical History History of surgery on arm S/P appendectomy Social History household members: none Smoking Status: Never smoker alcohol intake: never substance use type: does not use ROS Constitutional Constitutional: Reports fatigue and fever(s) Respiratory/Chest Respiratory/Chest: Reports tachypnea Gastrointestinal Gastrointestinal: Denies vomiting Genitourinary Genitourinary: Reports other Details: catheter in place Integumentary Integumentary: Reports other Details: skin montano noted Neurologic Neurologic: Denies seizures Physical Exam Const alert General Appearance: cooperative Resp Resp Narrative: tachypnea of 36, retractions noted Cardio Cardio Narrative: atrial fibrillation GI GI Narrative: abdomen is benign Narrative: Owng catheter in place Skin Skin Narrative: skin montano Lab / Micro Data Result Diagrams: 04/05/21 05:20 04/05/21 05:20 Labs: Laboratory Results - last 24 hr 03/31/21 11:40: Hep Bs Antibody Non-Reactive 03/31/21 11:40: Hep Bs Antigen Non-Reactive 04/05/21 05:20: Sodium 143, Potassium 4.4, Chloride 113 H, Carbon Dioxide 19.0 L, BUN 123 H*, Creatinine 6.87 H, Estim Creat Clear Calc 9.64, Est GFR (MDRD) Af Amer 10 L, Est GFR (MDRD) Non-Af 8 L, BUN/Creatinine Ratio 17.9, Glucose 109 H, Calcium 7.5 L, Phosphorus 4.5, Total Bilirubin 0.60, Direct Bilirubin 0.21, AST 225 H, ALT 134 H, Alkaline Phosphatase 47, Total Protein 4.6 L, Albumin 1.6 L, Globulin 3.0 04/05/21 05:20: WBC 9.3, RBC 2.93 L, Hgb 8.0 L, Hct 24.5 L, MCV 83.6, MCH 27.3, MCHC 32.7, RDW Std Deviation 45.1 H, RDW Coeff of Alfonso 14.6, Plt Count 141 L, MPV 12.0, Immature Gran % (Auto) 2.300 H, Neut % (Auto) 79.2 H, Lymph % (Auto) 8.5 L, [place] % (Auto) 9.9, Eos % (Auto) 0.0, Baso % (Auto) 0.1, Absolute Neuts (auto) 7.3, Absolute Lymphs (auto) 0.79 L, Nucleated RBC % 0 04/05/21 05:20: Total Creatine Kinase 4436 H 04/05/21 05:20: Retic Count 0.67, Immature Retic Fraction 11.60, Retic Hgb Equivalent 26.9 L 04/05/21 05:20: Iron 13 L, TIBC 198 L, Iron Saturation 6.6 L 04/05/21 12:48: COVID-19 (CHELITA) Detected Radiology Impression Chest X-Ray 04/05/21 09:20 IMPRESSION: Bilateral pulmonary infiltrates. Electronically Signed: Wyatt Herring MD at 9:51 EST , Service support , Chest X-Ray 04/05/21 18:10 IMPRESSION: There are bilateral pleural effusions. There are bilateral infiltrates. Electronically Signed: Sreekanth Rojo MD at 18:56 EST , Service support ,
--- NOTE | 2021-04-05 19:36 | PCM.OPRPT ---
Report of Operation Date of Procedure: 04/05/21 Pre-Operative Diagnosis: acute renal failure, need for dialysis access Post-Operative Diagnosis: same Surgery/Procedure Performed:: placement of right internal jugular dialysis catheter Description of Surgical Findings:: normal right IJ anatomy to SVC Surgeon: Anahi Lopez Type of Anesthesia: Local Specimen's removed: none Estimated Blood Loss (mL): < 10 ml Description of Procedure: After informed consent was given by patient, procedure was done at patient's bedside. Appropriate time out protocol was followed. The patient was then placed in the supine position. The patient was then given IV conscious sedation by myself. The patient?s upper chest and neck were then prepped with a surgical skin preparation and sterile surgical drapes were placed. Of note, patient had previous attempt at placement for access to left subclavian and left IJ without success. After proper landmarks were ascertained, the skin at the upper right neck area was then infiltrated with 1% xylocaine. The ultrasound machine was brought in for real time imaging. The transducer was placed in a sterile sheath. With the transducer, the right internal jugular vein was identified. A needle trocar was then inserted into the right internal jugular vein as directed by the ultrasound transducer - it was seen to penetrate the skin and enter the right internal jugular vein. There was good aspiration of venous blood. A wire was then threaded into the needle trocar. Once this was done, then the needle trocar was removed. A small skin breann was made with an 11 blade knife at the wire entrance site. The first and then second dilator was passed over the wire in to the right internal jugular vein via the Seldinger technique. The dual lumen catheter was then passed over the wire into the right internal jugular vein, as above. The catheter was then flushed with a heparin saline mixture. The catheter was then sutured into place using nylon suture. A postoperative chest radiograph which I reviewed this personally, revealed that the catheter tip was at the level of the superior vena cava and right atrium. I reviewed this personally. There was no evidence of pneumothorax or hemothorax. Grafts/Implants Used: 12 Fr Mahurkar Elite dual lumen catheter - lot [id number] Complications none noted
--- NOTE | 2021-04-05 22:10 | EKG12_ITS ---
Test Reason : HR Blood Pressure : / mmHG Vent. Rate : 145 BPM Atrial Rate : 375 BPM P-R Int : 000 ms QRS Dur : 086 ms QT Int : 256 ms P-R-T Axes : 000 038 256 degrees QTc Int : 397 ms Atrial fibrillation Low voltage QRS Nonspecific T wave abnormality Abnormal ECG When compared with ECG of 31-MAR-2021 12:27, MANUAL COMPARISON REQUIRED, DATA IS UNCONFIRMED Confirmed by GLORIA BURROUGHS, LACHELLE ([id number]), scientific publications editor PERRI AARON ([id number]) on 04/14/2021 2:05:12 PM Referred By: DILLON Confirmed By:DE CASTRO MD
[2021-04-05] MEDS: Heparin Injection (Vial) 5,000 UNIT/ML VIAL 5000 UNIT SC (22:52)
--- NOTE | 2021-04-05 23:24 | DIALYSIS ---
Hemodialysis x2 hours completed at 2210 on a 3K bath, 1st treatment, tolerated well, UF 0mL, ran even due to CritLine profile C and drop in BP with UF goal of 500mL, HR 120s pre-tx, HR 80s-140s during tx, EKG performed showing AFib, Cardizem given by staff technologist, accessed via new right neck temporary dialysis catheter, worked well, 2nd treatment planned for Sunday
[2021-04-06] VITALS (49 sets, daily range): BP systolic 82–145; BP diastolic 45–93; PULSE 56–128; RESP 18–35; TEMP 36.2–36.9; O2SAT 88–99
[2021-04-06 05:27] LABS: Absolute Lymphocyte Count 0.67 X10^3/uL (0.83-4.51); Absolute Neutrophil Count 9.3 X10^3/uL (2.0-7.7); Basophil# 0.01 X10^3/uL; Basophil% 0.1 % (0-1); Hemoglobin 7.5 g/dL (13.0-16.5); Lymphocyte # 0.67 X10^3/ul (0.83-4.51); Lymphocyte % 6.2 % (19-41); Mean Corp Hgb Conc 32.6 g/dL (32-36); Mean Corpuscular Hgb 27.6 pg (27.0-32.0); Mean Corpuscular Volume 84.6 fL (80-94); Mean Platelet Vol. 11.4 fl (6.2-12.0); Monocyte# 0.69 X10^3/uL; Monocyte% 6.4 % (0-10); NRBC Flagged by Analyzer 0 % (0-5); Neutrophil # 9.27 X10^3/uL (2.7-7.7); Neutrophil % 85.8 % (47-70); POSITIVE MORPHOLOGY YES; Platelet Count 171 K/mm3 (150-450); RBC Distribution Width CV 14.7 % (11.6-14.6); RBC Distribution Width SD 45.1 fl (35.1-43.9); Red Blood Count 2.72 M/mm3 (4.6-6.2); White Blood Count 10.8 K/mm3 (4.4-11.0)
[2021-04-06 05:29] LABS: Differential Indicated SCAN CRITERIA MET
[2021-04-06 05:49] LABS: Differential Comment SCANNED
[2021-04-06 06:05] LABS: CPK Total, Creatine Kinase 3781 U/L (39-308)
[2021-04-06] MEDS: Heparin Injection (Vial) 5,000 UNIT/ML VIAL 5000 UNIT SC ×3 (06:32→21:25)
[2021-04-06] MEDS: Juven (unflavored) Packet 1 PACKET PO ×2 (08:28→21:22)
[2021-04-06] MEDS: Metoprolol Tartrate 50 MG Tablet PO (08:28)
[2021-04-06] MEDS: Piperacil/Tazobactam 3.375 GM Q12 PREMIX IV ×2 (08:34→21:22)
[2021-04-06] MEDS: Silver Sulfadiazine 1% Crm 50 gm Bottle 1 APPLIC TOPICAL ×2 (08:35→21:30)
[2021-04-06] MEDS: Neomycin/Bacitracin/Polymyxin Ointment 1 APPLIC TOPICAL (08:35)
--- NOTE | 2021-04-06 08:50 | CASEMGMT ---
SW called [facility] and left a message letting them know that patient is now COVID positive so he will not be able to come to [facility]. Silvina Ferrera SEISMOGRAPH SUPERVISOR ANDREEA
--- NOTE | 2021-04-06 10:18 | CASEMGMT ---
Pt is now COVID + per PCR drawn yesterday and will not be able to go to [facility] for OP HD or [facility] for rehab. Per Rojas at [facility], [facility] is currently the COVID clinic but they are switching the COVID clinic this weekend to [facility] in [place], [address] [place] [address]. Clinicals faxed to [facility] admissions and call to admissions to update on need to change clinic and updated admissions on clinic, voices understanding. Pt will not be able to start at clinic until Sunday04/12/21. Elif UGALDE working on change in SNF placement and SNF will also need to set up transportation to [facility]. [facility] portal updated for appropriate clinic. Call to Julia, who is in charge of [facility] COVID pt's to update and she states [facility] is no longer covering cost for transport to COVID clinics, Elif UGALDE aware. Julia's contact [phone]. CM to follow. Heidi SHEPARD CM
[2021-04-06 11:29] LABS: Albumin, Serum 1.6 g/dL (3.2-5.0); BUN 105 mg/dL (7-18); BUN/Creat Ratio 19.3 RATIO (10-20); Calcium,Total 7.6 mg/dL (8.5-10.1); Chloride 108 mmol/L (98-107); Creatinine, Serum 5.44 mg/dL (0.70-1.30); EST Glomerular Filtration Rate 11 mL/min (>60); Est Glom Filt Rate - Afr Amer 13 mL/min (>60); Estimated Creatinine Clearance 12.17 ml/min; Glucose 164 mg/dL (74-106); Phosphorus 4.6 mg/dL (2.5-4.9); Potassium 4.3 mmol/L (3.5-5.1); Sodium Level 141 mmol/L (136-145)
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
--- NOTE | 2021-04-06 13:34 | PCM.PN.REN ---
Subjective Subjective Following for LILLY on CKD. The patient is a bit confused today. He could not remember that he was dialyzed yesterday. However, there is no chest pain, shortness of breath at rest, or nausea. The patient has been diagnosed with COVID-19 since yesterday. Objective Data Objective Data Vital Signs: Vital Signs Temp Pulse Resp BP Pulse Ox 98.5 F 78 22 H 101/71 94 04/06/21 05:26 04/06/21 11:27 04/06/21 11:00 04/06/21 11:00 04/06/21 11:00 Oxygen Flow Rate (L/min) 2 Oxygen Delivery Method Nasal Cannula Weight: 99.7 kg Body Mass Index (BMI) 25.0 Intake & Output: Intake and Output for Last 24 Hours 04/04/21 04/05/21 04/06/21 23:59 23:59 23:59 Intake Total 3356.93 / 3356.93 450.52 / 453.02 978.03 / 978.03 Output Total 2400 / 2400 1225 / 1225 200 / 200 Balance 956.93 / 956.93 -774.48 / -771.98 778.03 / 778.03 Lab / Micro Data Result Diagrams: 04/06/21 04:45 04/06/21 04:45 Labs: Laboratory Results - last 24 hr 04/05/21 12:48: COVID-19 (CHELITA) Detected 04/06/21 04:45: APTT 43.0 H 04/06/21 04:45: WBC 10.8, RBC 2.72 L, Hgb 7.5 L, Hct 23.0 L, MCV 84.6, MCH 27.6, MCHC 32.6, RDW Std Deviation 45.1 H, RDW Coeff of Alfonso 14.7 H, Plt Count 171, MPV 11.4, Immature Gran % (Auto) 1.500 H, Neut % (Auto) 85.8 H, Lymph % (Auto) 6.2 L, [place] % (Auto) 6.4, Eos % (Auto) 0.0, Baso % (Auto) 0.1, Absolute Neuts (auto) 9.3 H, Absolute Lymphs (auto) 0.67 L, Nucleated RBC % 0, Differential Comment SCANNED 04/06/21 04:45: Total Creatine Kinase 3781 H 04/06/21 04:45: Sodium 141, Potassium 4.3, Chloride 108 H, Carbon Dioxide 21.0, BUN 105 H*, Creatinine 5.44 H, Estim Creat Clear Calc 12.17, Est GFR (MDRD) Af Amer 13 L, Est GFR (MDRD) Non-Af 11 L, BUN/Creatinine Ratio 19.3, Glucose 164 H, Calcium 7.6 L, Phosphorus 4.6, Albumin 1.6 L 04/06/21 12:30: Crossmatch See Detail Micro: Microbiology 04/01/21 Unknown Urine, Clean Catch Urine Culture - Final Mixed Gram Positive Organisms 03/31/21 12:50 Nasal Secretion SARS-CoV-2 Antigen (Rapid) - Final Radiography Diagnostic Testing: Radiology Impression Chest X-Ray 04/05/21 18:10 IMPRESSION: There are bilateral pleural effusions. There are bilateral infiltrates. Electronically Signed: Sreekanth Rojo MD at 18:56 EST , Service support , Physical Exam Narrative General: No apparent distress HEENT: Normocephalic, atraumatic. Mucous membrane is moist. Neck: Supple, no JVD. Heart: Normal S1, S2. There is no rubs, murmurs or gallops. Lungs: Clear to auscultation anteriorly. Abdomen: Normal bowel sound, soft, nontender, no guarding or rebound. Extremities: 1+ lower extremity edema. Assessment & Plan Assessment/Plan (1) LILLY (acute kidney injury): PLAN: The patient has nephrotoxic ATN from rhabdomyolysis and ischemic ATN from prior volume depletion. CT of the abdomen and pelvis on 04/01/2021 did not reveal any hydronephrosis. I have low suspicion for other causes of LILLY at this time. The patient is not oliguric. However, his renal function had continued to decline since admission. Therefore, dialysis was started on 04/05/2021. Plan for second dialysis treatment today. We will continue to monitor for any recovery of renal function. (2) Rhabdomyolysis: PLAN: Due to the compression of right upper arm muscles. CK has been trending down. However, the patient likely sustained LILLY due to nephrotoxic ATN because of rhabdomyolysis. Continue current supportive care. (3) Hypocalcemia: PLAN: Hypocalcemia is likely due to rhabdomyolysis as well. Calcium level is improving. There is no need for calcium supplementation in this setting. (4) Metabolic acidosis: PLAN: Acidosis is due to LILLY/CKD. Serum bicarbonate level is better at 21 mmol/L today. Serum bicarbonate level was 16 mmol/L on 04/02/2021. Serum bicarbonate level should stabilize with dialysis. Recheck serum bicarbonate level tomorrow.
[2021-04-06 14:00] LABS: Hepatitis B Core Ab Total Negative (Negative)
--- NOTE | 2021-04-06 14:10 | CASEMGMT ---
Addendum entered by Silvina Ferrera 04/06/21 15:59: SW heard back from Vivien at [facility] and they are not taking anyone that requires dialysis. Silvina DORAN Original Note: TRAM e-mailed Vivien at [facility] (the only local correction taking positive COVID patients) and presented patient's situation. The situation being patient will have to go to [place] for his dialysis 3 times a week and he is COVID positive. The correction will have to provide the transportation to and from dialysis. Await response. Silvina DORAN
--- NOTE | 2021-04-06 21:03 | DIALYSIS ---
Hemodialysis x3 hours completed at 1930 on a 3K bath, 2nd treatment, tolerated well, UF 0mL, ran even due to CritLine profile C and drop in BP with UF goal of 500mL, 1 unit PRBCs given with dialysis, tolerated well, no s/s of transfusion reaction, accessed via right neck temporary dialysis catheter, worked well, next treatment per nephrology
[2021-04-06] MEDS: 0.9% Saline Lock 10 ML Syringe IV (21:23)
[2021-04-06] MEDS: dexAMETHasone 4 MG/ML Vial 6 MG IV (21:26)
[2021-04-07] VITALS (27 sets, daily range): BP systolic 103–151; BP diastolic 60–94; PULSE 76–108; RESP 22–31; TEMP 35.5–36.7; O2SAT 90–97
[2021-04-07 05:48] LABS: Absolute Lymphocyte Count 1.09 X10^3/uL (0.83-4.51); Absolute Neutrophil Count 16.4 X10^3/uL (2.0-7.7); Basophil# 0.02 X10^3/uL; Basophil% 0.1 % (0-1); Hematocrit 25.1 % (40-54); Hemoglobin 8.5 g/dL (13.0-16.5); Lymphocyte # 1.09 X10^3/ul (0.83-4.51); Lymphocyte % 5.6 % (19-41); Mean Corp Hgb Conc 33.9 g/dL (32-36); Mean Corpuscular Volume 82.6 fL (80-94); Mean Platelet Vol. 11.9 fl (6.2-12.0); Monocyte# 1.46 X10^3/uL; Monocyte% 7.5 % (0-10); NRBC Flagged by Analyzer 0.2 % (0-5); Neutrophil # 16.43 X10^3/uL (2.7-7.7); Neutrophil % 84.6 % (47-70); Platelet Count 215 K/mm3 (150-450); RBC Distribution Width CV 14.6 % (11.6-14.6); RBC Distribution Width SD 43.6 fl (35.1-43.9); Red Blood Count 3.04 M/mm3 (4.6-6.2); White Blood Count 19.4 K/mm3 (4.4-11.0)
[2021-04-07 06:31] LABS: Albumin, Serum 1.7 g/dL (3.2-5.0); BUN 82 mg/dL (7-18); CPK Total, Creatine Kinase 2788 U/L (39-308); Calcium,Total 8.1 mg/dL (8.5-10.1); Chloride 106 mmol/L (98-107); Creatinine, Serum 4.09 mg/dL (0.70-1.30); EST Glomerular Filtration Rate 15 mL/min (>60); Est Glom Filt Rate - Afr Amer 18 mL/min (>60); Estimated Creatinine Clearance 16.19 ml/min; Glucose 131 mg/dL (74-106); Phosphorus 4.3 mg/dL (2.5-4.9); Sodium Level 141 mmol/L (136-145)
[2021-04-07] MEDS: Heparin Injection (Vial) 5,000 UNIT/ML VIAL 5000 UNIT SC ×3 (06:56→20:51)
[2021-04-07] MEDS: dexAMETHasone 4 MG Tablet 6 MG PO (10:06)
[2021-04-07] MEDS: Juven (unflavored) Packet 1 PACKET PO ×2 (10:06→17:03)
[2021-04-07] MEDS: Metoprolol Tartrate 50 MG Tablet PO (10:07)
[2021-04-07] MEDS: Silver Sulfadiazine 1% Crm 50 gm Bottle 1 APPLIC TOPICAL ×2 (10:08→20:51)
[2021-04-07] MEDS: Neomycin/Bacitracin/Polymyxin Ointment 1 APPLIC TOPICAL (10:08)
[2021-04-07] MEDS: Piperacil/Tazobactam 3.375 GM Q12 PREMIX IV ×2 (10:11→20:51)
--- NOTE | 2021-04-07 10:55 | PN.RENAL_ITS ---
Subjective Subjective Following for LILLY on CKD. The patient denies chest pain, shortness of breath, or nausea. Edema of the lower extremities has improved. He is still weak. Objective Data Objective Data Vital Signs: Vital Signs Temp Pulse Resp BP Pulse Ox 97.6 F L 93 22 H 127/66 H 94 04/07/21 10:00 04/07/21 10:07 04/07/21 10:00 04/07/21 10:07 04/07/21 10:00 Oxygen Flow Rate (L/min) 2 Oxygen Delivery Method Nasal Cannula Weight: 101 kg Body Mass Index (BMI) 25.0 Intake & Output: Intake and Output for Last 24 Hours 04/05/21 04/06/21 04/07/21 23:59 23:59 23:59 Intake Total 450.52 / 453.02 1261.91 / 1278.61 309.42 / 309.42 Output Total 1225 / 1225 375 / 375 Balance -774.48 / -771.98 886.91 / 903.61 309.42 / 309.42 Lab / Micro Data Result Diagrams: 04/07/21 05:16 04/07/21 05:16 Labs: Laboratory Results - last 24 hr 03/31/21 11:40: Hep B Core Total Ab Negative 04/06/21 04:45: Sodium 141, Potassium 4.3, Chloride 108 H, Carbon Dioxide 21.0, BUN 105 H*, Creatinine 5.44 H, Estim Creat Clear Calc 12.17, Est GFR (MDRD) Af Amer 13 L, Est GFR (MDRD) Non-Af 11 L, BUN/Creatinine Ratio 19.3, Glucose 164 H, Calcium 7.6 L, Phosphorus 4.6, Albumin 1.6 L 04/06/21 12:30: Blood Type A POSITIVE, Antibody Screen NEGATIVE, Crossmatch See Detail 04/07/21 05:16: WBC 19.4 H, RBC 3.04 L, Hgb 8.5 L, Hct 25.1 L, MCV 82.6, MCH 28.0, MCHC 33.9, RDW Std Deviation 43.6, RDW Coeff of Alfonso 14.6, Plt Count 215, MPV 11.9, Immature Gran % (Auto) 2.200 H, Neut % (Auto) 84.6 H, Lymph % (Auto) 5.6 L, [place] % (Auto) 7.5, Eos % (Auto) 0.0, Baso % (Auto) 0.1, Absolute Neuts (auto) 16.4 H, Absolute Lymphs (auto) 1.09, Nucleated RBC % 0.2 04/07/21 05:16: Sodium 141, Potassium 4.0, Chloride 106, Carbon Dioxide 23.0, BUN 82 H, Creatinine 4.09 H, Estim Creat Clear Calc 16.19, Est GFR (MDRD) Af Amer 18 L, Est GFR (MDRD) Non-Af 15 L, BUN/Creatinine Ratio 20.0, Glucose 131 H, Calcium 8.1 L, Phosphorus 4.3, Total Creatine Kinase 2788 H, Albumin 1.7 L Micro: Microbiology 04/05/21 09:48 Blood Culture (Wb) - Left Forearm Blood Culture - Preliminary No growth in 48 hours. 04/05/21 09:48 Blood Culture (Wb) - Right Hand Blood Culture - Preliminary No growth in 48 hours. 04/01/21 Unknown Urine, Clean Catch Urine Culture - Final Mixed Gram Positive Organisms 03/31/21 12:50 Nasal Secretion SARS-CoV-2 Antigen (Rapid) - Final Physical Exam Narrative General: No apparent distress HEENT: Normocephalic, atraumatic. Mucous membrane is moist. Neck: Supple, no JVD. Heart: Normal S1, S2. There is no rubs, murmurs or gallops. Lungs: Clear to auscultation anteriorly. Abdomen: Normal bowel sound, soft, nontender, no guarding or rebound. Extremities: 1+ lower extremity edema. Assessment & Plan Assessment/Plan (1) LILLY (acute kidney injury): PLAN: -The patient has nephrotoxic ATN from rhabdomyolysis and ischemic ATN from prior volume depletion. CT of the abdomen and pelvis on 04/01/2021 did not reveal any hydronephrosis. I have low suspicion for other causes of LILLY at this time. -There may be underlying chronic kidney disease as well. We will check with primary care physicians to see if there is any more recent serum creatinine in 2020. In August 2019, his serum creatinine was 2.4-2.6. -The patient was nonoliguric until the last 24 hours. -Dialysis was started on 04/05/2021. -Plan for third dialysis treatment today. We will hold dialysis tomorrow and keep him on TTS dialysis schedule. -We will continue to monitor for any recovery of renal function. (2) Rhabdomyolysis: PLAN: -Due to the compression of right upper arm muscles. CK has been trending down. -The patient likely sustained LILLY due to nephrotoxic ATN because of rhabdomyolysis. -Continue current supportive care. (3) Hypocalcemia: PLAN: -Hypocalcemia is likely due to rhabdomyolysis as well. -Calcium level is improving. There is no need for calcium supplementation in this setting. (4) Metabolic acidosis: PLAN: -Acidosis is due to LILLY/CKD. -Serum bicarbonate level is better at 23 mmol/L today. Serum bicarbonate level was 16 mmol/L on 04/02/2021. -Serum bicarbonate level should continue to stabilize with dialysis. -Recheck serum bicarbonate level tomorrow.
--- NOTE | 2021-04-07 11:38 | CASEMGMT ---
Call to Mer at [facility] to see if pt would be a candidate to go there at discharge as CM is going to have difficulty finding a COVID SNF that will transport pt to dialysis. Per Mer, pt has to be 10 days out from COVID + test before can be considered at SNF. CM to follow. Heidi SHEPARD CM
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
--- NOTE | 2021-04-07 12:12 | CASEMGMT ---
TRAM called Ujlia with [facility]. TRAM left her a voice mail requesting a return call regarding what other [facility] facilities are taking positive COVID patients. Silvina Ferrera FOUNDATION ASSISTANT ANDREEA
--- NOTE | 2021-04-07 16:12 | DIALYSIS ---
Hemodialysis complete via RIJ temporary dialysis CVC with 1 liter fluid removed. Pt tolerated treatment without difficulty.
--- NOTE | 2021-04-07 16:14 | CASEMGMT ---
TRAM has not heard back from Julia with [facility]. RN MIGUEL A called Rojas with [facility] and he said there are two [facility] facilities in [place] that are taking positive patients. [facility] has a sister facility in [place] that is taking positive patients and can transport to dialysis. [facility]'s sister facility is in [place] and is called [facility] on [address]. TRAM called [facility] ([phone]) and spoke with Yana in admissions. TRAM explained situation and she agreed to look at the referral. Her fax number is [phone]. TRAM faxed referral. TRAM will talk with patient and his sister tomorrow regarding situation. Silvina Ferrera ETL INFORMATICA ARCHITECT ANDREEA
[2021-04-08] VITALS (29 sets, daily range): BP systolic 113–148; BP diastolic 65–108; PULSE 90–118; RESP 20–32; TEMP 36.2–36.7; O2SAT 87–100
[2021-04-08] MEDS: Albuterol 2.5 MG/3 ML VIAL.NEB. INHALATION (01:16)
--- NOTE | 2021-04-08 02:49 | CPS ---
pt states no resp distress at this time and did not want to go on a bipap machine
[2021-04-08] MEDS: 0.9% Saline Lock 10 ML Syringe IV ×5 (03:43→21:29)
[2021-04-08] MEDS: Furosemide 40 MG/4 ML Vial IV (03:43)
[2021-04-08] MEDS: Heparin Injection (Vial) 5,000 UNIT/ML VIAL 5000 UNIT SC ×3 (05:13→21:29)
[2021-04-08 05:52] LABS: Basophil# 0.04 X10^3/uL; Eosinophil# 0.06 X10^3/uL; Hematocrit 25.2 % (40-54); Hemoglobin 8.6 g/dL (13.0-16.5); Mean Corp Hgb Conc 34.1 g/dL (32-36); Mean Corpuscular Hgb 28.2 pg (27.0-32.0); Mean Corpuscular Volume 82.6 fL (80-94); Mean Platelet Vol. 11.9 fl (6.2-12.0); Monocyte# 1.07 X10^3/uL; NRBC Flagged by Analyzer 0.2 % (0-5); POSITIVE DIFFERENTIAL YES; Platelet Count 242 K/mm3 (150-450); RBC Distribution Width CV 14.5 % (11.6-14.6); RBC Distribution Width SD 43.1 fl (35.1-43.9); Red Blood Count 3.05 M/mm3 (4.6-6.2); White Blood Count 24.1 K/mm3 (4.4-11.0)
[2021-04-08 05:57] LABS: Differential Indicated SCAN CRITERIA MET
[2021-04-08 06:04] LABS: Albumin, Serum 1.8 g/dL (3.2-5.0); BUN 67 mg/dL (7-18); BUN/Creat Ratio 20.8 RATIO (10-20); Calcium,Total 7.8 mg/dL (8.5-10.1); Chloride 101 mmol/L (98-107); Creatinine, Serum 3.22 mg/dL (0.70-1.30); EST Glomerular Filtration Rate 20 mL/min (>60); Est Glom Filt Rate - Afr Amer 24 mL/min (>60); Estimated Creatinine Clearance 20.56 ml/min; Glucose 122 mg/dL (74-106); Phosphorus 3.8 mg/dL (2.5-4.9); Potassium 3.8 mmol/L (3.5-5.1); Sodium Level 138 mmol/L (136-145)
[2021-04-08 06:25] LABS: Scan Smear per Review Criteria MANUAL DIFF
[2021-04-08 06:29] LABS: Lymphocyte 3 % (19-41); Metamyelocyte 1 % (0-1); Monocyte 4 % (0-10); Neutrophil-Band 1 % (0-5); Neutrophil-Segmented 91 % (47-70); Total Cells Counted 100 (MANUAL DIFF)
[2021-04-08 06:30] LABS: Absolute Neutrophil Count 22.4 X10^3/uL (2.0-7.7); Lymphocyte # 0.72 X10^3/ul (0.83-4.51); Neutrophil # 22.38 X10^3/uL (2.7-7.7)
[2021-04-08 06:31] LABS: Absolute Lymphocyte Count 0.72 X10^3/uL (0.83-4.51); Platelet Estimate ADEQUATE (ADEQ); Red Cell Morphology NORM C+C NORMAL (NORM C&C)
[2021-04-08] MEDS: Piperacil/Tazobactam 3.375 GM Q12 PREMIX IV ×2 (09:37→21:29)
[2021-04-08] MEDS: Juven (unflavored) Packet 1 PACKET PO ×2 (09:37→15:54)
[2021-04-08] MEDS: Metoprolol Tartrate 50 MG Tablet PO ×2 (09:38→21:29)
[2021-04-08] MEDS: dexAMETHasone 4 MG Tablet 6 MG PO (09:38)
[2021-04-08 10:31] LABS: Pathologist Review Reviewed
--- NOTE | 2021-04-08 11:39 | NURSING ---
Update provided to , Jordyn over the phone. Patient expressed her first choice for SNF would be [place]. She would prefer not to go to [facility] or [facility].
--- NOTE | 2021-04-08 11:55 | CASEMGMT ---
TRAM noted RN spoke with patient's sister Jordyn and Jordyn was stating she preferred [facility] and not [facility] or [facility]. TRAM called Jordyn and let her know that because patient is COVID positive he will not be able to go to any of the local facilities. None of the local facilities are accepting patients that are COVID positive. TRAM told her the only options SW has found are [facility] in [place] and [facility] in [place]. Jordyn said there is no way he is going to [place] as she would not be able to go that far. TRAM told her it is difficult to find a place as he is a new dialysis and COVID positive. With the new dialysis and being COVID positive he has to go to a particular dialysis center which happens to be in [place]. Jordny said she would be okay with the facility in [place]. TRAM has faxed a referral there and waiting on a response. Jordyn asked if patient could be tested again and TRAM told her we usually to not re-test patients once positive as they can remain positive for an extended amount of time. TRAM told her SW will wait to hear back from [facility]. Silvina Ferrera ROVING DEPARTMENT END FINDER INSTRUCTOR LOOPING
--- NOTE | 2021-04-08 12:35 | CASEMGMT ---
TRAM received a call from Sylvia at [facility]. Sylvia said they are looking at patient's referral right now. Sylvia said they will need his dialysis notes so they can review those as they have a dialysis unit. TRAM let Sylvia know that he is Acute not End Stage so he probably won't be able to get dialysis at their facility. TRAM did tell her that SW just spoke with the Manager Hematology and patient is starting to recover. It is possible that he may recover and not need dialysis. TRAM told her patient will be here through the weekend. Sylvia asked TRAM to follow up on Sunday when it is known whether or not he will need dialysis. [facility]. TRAM did place a call to Yana at [facility] in [place]. TRAM left a voice mail. Silvina DORAN
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
--- NOTE | 2021-04-08 13:36 | CASEMGMT ---
Per alisha Monsalve, pt is producing urine and creat is looking better. Pt to be observed over the w/e to see if numbers improve even more and see is pt will still need dialysis. Pt also has a temp cath, so if he does need to continue on HD then he will need tunnel cath placed prior to d/c. CM to follow. Heidi SHEPARD CM
--- NOTE | 2021-04-08 15:10 | PCM.PN.REN ---
Subjective Subjective Sitting in chair, trying to eat lunch. He complains of poor appetite, poor taste Objective Data Objective Data Vital Signs: Vital Signs Temp Pulse Resp BP Pulse Ox 98.0 F 99 22 H 129/74 H 95 04/08/21 13:00 04/08/21 13:00 04/08/21 13:00 04/08/21 13:00 04/08/21 13:00 Oxygen Flow Rate (L/min) 2 Oxygen Delivery Method Nasal Cannula Weight: 98.3 kg Body Mass Index (BMI) 25.0 Intake & Output: Intake and Output for Last 24 Hours 04/06/21 04/07/21 04/08/21 23:59 23:59 23:59 Intake Total 1261.91 / 1278.61 799.42 / 815.84 425.89 / 425.89 Output Total 375 / 375 1500 / 1650 1175 / 1175 Balance 886.91 / 903.61 -700.58 / -834.16 -749.11 / -749.11 Lab / Micro Data Result Diagrams: 04/08/21 04:47 04/08/21 04:47 Labs: Laboratory Results - last 24 hr 04/08/21 04:47: WBC 24.1 H, RBC 3.05 L, Hgb 8.6 L, Hct 25.2 L, MCV 82.6, MCH 28.2, MCHC 34.1, RDW Std Deviation 43.1, RDW Coeff of Alfonso 14.5, Plt Count 242, MPV 11.9, Immature Gran % (Auto) FABRICATION DEPARTMENT SUPERVISOR, Neut % (Auto) FABRICATION DEPARTMENT SUPERVISOR, Lymph % (Auto) FABRICATION DEPARTMENT SUPERVISOR, [place] % (Auto) FABRICATION DEPARTMENT SUPERVISOR, Eos % (Auto) FABRICATION DEPARTMENT SUPERVISOR, Baso % (Auto) FABRICATION DEPARTMENT SUPERVISOR, Absolute Neuts (auto) 22.4 H, Absolute Lymphs (auto) 0.72 L, Total Counted 100, Neutrophils % (Manual) 91 H, Band Neutrophils % 1, Lymphocytes % (Manual) 3 L, Monocytes % (Manual) 4, Metamyelocytes % 1, Nucleated RBC % 0.2, Diff Path Review Reviewed, Platelet Estimate ADEQUATE, RBC Morphology NORM C+C 04/08/21 04:47: Sodium 138, Potassium 3.8, Chloride 101, Carbon Dioxide 26.0, BUN 67 H, Creatinine 3.22 H, Estim Creat Clear Calc 20.56, Est GFR (MDRD) Af Amer 24 L, Est GFR (MDRD) Non-Af 20 L, BUN/Creatinine Ratio 20.8 H, Glucose 122 H, Calcium 7.8 L, Phosphorus 3.8, Albumin 1.8 L Micro: Microbiology 04/05/21 09:48 Blood Culture (Wb) - Left Forearm Blood Culture - Preliminary No growth in 48 hours. 04/05/21 09:48 Blood Culture (Wb) - Right Hand Blood Culture - Preliminary No growth in 48 hours. 04/01/21 Unknown Urine, Clean Catch Urine Culture - Final Mixed Gram Positive Organisms 03/31/21 12:50 Nasal Secretion SARS-CoV-2 Antigen (Rapid) - Final Physical Exam Narrative General: No apparent distress. Alert and oriented x3 HEENT: Normocephalic, atraumatic. Mucous membrane is moist. Neck: Supple, no JVD. Heart: Normal S1, S2. There is no rubs, murmurs or gallops. Lungs: Clear to auscultation anteriorly. Abdomen: Normal bowel sound, soft, nontender, no guarding or rebound. Extremities: 1+ lower extremity edema. Wong with clear urine in bag Assessment & Plan Assessment/Plan (1) LILLY (acute kidney injury): PLAN: -The patient has nephrotoxic ATN from rhabdomyolysis and ischemic ATN from prior volume depletion. CT of the abdomen and pelvis on 04/01/2021 did not reveal any hydronephrosis. I have low suspicion for other causes of LILLY at this time. -There may be underlying chronic kidney disease as well. We will check with primary care physicians to see if there is any more recent serum creatinine in 2020. In August 2019, his serum creatinine was 2.4-2.6. -The patient was nonoliguric until last few days. So far 1.2L UOP today. -Dialysis was started on 04/05/2021, SCr peaked 6.3mg/dL. No acute indication for ALARM INSTALLATION TECHNICIAN today. We will check for HD tomorrow. -We will continue to monitor for any recovery of renal function. (2) Rhabdomyolysis: PLAN: -Due to the compression of right upper arm muscles. CK has been trending down. -The patient likely sustained LILLY due to nephrotoxic ATN because of rhabdomyolysis. -Continue current supportive care. (3) Hypocalcemia: PLAN: -Hypocalcemia is likely due to rhabdomyolysis as well. There is no need for calcium supplementation in this setting. (4) Metabolic acidosis: PLAN: -Acidosis is due to LILLY/CKD. -Serum bicarbonate level is better at 26 mmol/L today. Serum bicarbonate level was 16 mmol/L on 04/02/2021. -Serum bicarbonate level should continue to stabilize with dialysis.
[2021-04-08] MEDS: Amiodarone 200 MG Tablet 300 MG PO ×2 (15:53→21:29)
[2021-04-08] MEDS: Neomycin/Bacitracin/Polymyxin Ointment 1 APPLIC TOPICAL (15:54)
[2021-04-08] MEDS: Silver Sulfadiazine 1% Crm 50 gm Bottle 1 APPLIC TOPICAL ×2 (15:54→21:30)
--- NOTE | 2021-04-08 16:00 | CASEMGMT ---
TRAM called patient's sister, Jordyn and updated her that patient will be here through the weekend. TRAM let her know the facility in [place] is looking over the referral and TRAM plans on talking with them on Sunday. She thanked TRAM for the update. Silvina DORAN
[2021-04-09] VITALS (28 sets, daily range): BP systolic 111–144; BP diastolic 70–97; PULSE 83–126; RESP 20–32; TEMP 36.1–36.8; O2SAT 87–100
[2021-04-09] MEDS: Albuterol 2.5 MG/3 ML VIAL.NEB. INHALATION ×3 (01:25→13:34)
--- NOTE | 2021-04-09 05:53 | NURSING ---
Called respiratory regarding pt satting 87% on venti mask. RT advised to place pt on NRB mask for now, may need to utilize bipap that is ordered.
[2021-04-09] MEDS: Amiodarone 200 MG Tablet 300 MG PO ×2 (05:54→20:44)
[2021-04-09] MEDS: Heparin Injection (Vial) 5,000 UNIT/ML VIAL 5000 UNIT SC ×2 (05:55→20:49)
[2021-04-09 08:18] LABS: Absolute Lymphocyte Count 0.76 X10^3/uL (0.83-4.51); Absolute Neutrophil Count 21.5 X10^3/uL (2.0-7.7); Basophil# 0.04 X10^3/uL; Basophil% 0.2 % (0-1); Hematocrit 25.5 % (40-54); Hemoglobin 8.5 g/dL (13.0-16.5); Lymphocyte # 0.76 X10^3/ul (0.83-4.51); Lymphocyte % 3.2 % (19-41); Mean Corp Hgb Conc 33.3 g/dL (32-36); Mean Corpuscular Hgb 28.1 pg (27.0-32.0); Mean Corpuscular Volume 84.4 fL (80-94); Mean Platelet Vol. 11.6 fl (6.2-12.0); Monocyte# 0.89 X10^3/uL; Monocyte% 3.7 % (0-10); NRBC Flagged by Analyzer 0.2 % (0-5); Neutrophil # 21.47 X10^3/uL (2.7-7.7); Neutrophil % 89.8 % (47-70); POSITIVE DIFFERENTIAL YES; Platelet Count 272 K/mm3 (150-450); RBC Distribution Width CV 14.7 % (11.6-14.6); RBC Distribution Width SD 45.1 fl (35.1-43.9); Red Blood Count 3.02 M/mm3 (4.6-6.2); White Blood Count 23.9 K/mm3 (4.4-11.0)
[2021-04-09 08:21] LABS: Differential Indicated SCAN CRITERIA MET
[2021-04-09] MEDS: Piperacil/Tazobactam 3.375 GM Q12 PREMIX IV ×2 (09:37→22:56)
[2021-04-09] MEDS: dexAMETHasone 4 MG Tablet 6 MG PO (09:38)
[2021-04-09] MEDS: Neomycin/Bacitracin/Polymyxin Ointment 1 APPLIC TOPICAL (09:38)
[2021-04-09] MEDS: Juven (unflavored) Packet 1 PACKET PO ×2 (09:38→17:09)
[2021-04-09] MEDS: Metoprolol Tartrate 50 MG Tablet PO ×2 (09:38→20:46)
[2021-04-09] MEDS: Silver Sulfadiazine 1% Crm 50 gm Bottle 1 APPLIC TOPICAL ×2 (09:39→20:53)
[2021-04-09 10:01] LABS: Albumin, Serum 1.7 g/dL (3.2-5.0); BUN 100 mg/dL (7-18); BUN/Creat Ratio 23.6 RATIO (10-20); Calcium,Total 8.1 mg/dL (8.5-10.1); Chloride 104 mmol/L (98-107); Creatinine, Serum 4.23 mg/dL (0.70-1.30); EST Glomerular Filtration Rate 14 mL/min (>60); Est Glom Filt Rate - Afr Amer 17 mL/min (>60); Estimated Creatinine Clearance 15.65 ml/min; Glucose 128 mg/dL (74-106); Phosphorus 5.1 mg/dL (2.5-4.9); Potassium 3.8 mmol/L (3.5-5.1); Sodium Level 140 mmol/L (136-145)
--- NOTE | 2021-04-09 11:55 | PCM.PN.REN ---
Subjective Subjective Following for LILLY on CKD. The patient denies chest pain. There is no nausea or vomiting. He denies shortness of breath, but he is on nonrebreather oxygen mask. There is no edema of the lower extremity. Objective Data Objective Data Vital Signs: Vital Signs Temp Pulse Resp BP Pulse Ox 97.9 F 94 20 H 135/74 H 98 04/09/21 10:57 04/09/21 10:57 04/09/21 10:57 04/09/21 10:57 04/09/21 10:57 Oxygen Flow Rate (L/min) 15 Oxygen Delivery Method Non-Rebreather Weight: 97.1 kg Body Mass Index (BMI) 25.0 Intake & Output: Intake and Output for Last 24 Hours 04/07/21 04/08/21 04/09/21 23:59 23:59 23:59 Intake Total 799.42 / 815.84 824.60 / 884.60 325.25 / 325.25 Output Total 1500 / 1650 1175 / 1675 1100 / 1100 Balance -700.58 / -834.16 -350.40 / -790.40 -774.75 / -774.75 Lab / Micro Data Result Diagrams: 04/09/21 07:11 04/09/21 09:12 Labs: Laboratory Results - last 24 hr 04/09/21 07:11: WBC 23.9 H, RBC 3.02 L, Hgb 8.5 L, Hct 25.5 L, MCV 84.4, MCH 28.1, MCHC 33.3, RDW Std Deviation 45.1 H, RDW Coeff of Alfonso 14.7 H, Plt Count 272, MPV 11.6, Immature Gran % (Auto) 3.100 H, Neut % (Auto) 89.8 H, Lymph % (Auto) 3.2 L, [place] % (Auto) 3.7, Eos % (Auto) 0.0, Baso % (Auto) 0.2, Absolute Neuts (auto) 21.5 H, Absolute Lymphs (auto) 0.76 L, Nucleated RBC % 0.2 04/09/21 09:12: Sodium 140, Potassium 3.8, Chloride 104, Carbon Dioxide 25.0, BUN 100 H, Creatinine 4.23 H, Estim Creat Clear Calc 15.65, Est GFR (MDRD) Af Amer 17 L, Est GFR (MDRD) Non-Af 14 L, BUN/Creatinine Ratio 23.6 H, Glucose 128 H, Calcium 8.1 L, Phosphorus 5.1 H, Albumin 1.7 L Micro: Microbiology 04/05/21 09:48 Blood Culture (Wb) - Left Forearm Blood Culture - Preliminary No growth in 48 hours. 04/05/21 09:48 Blood Culture (Wb) - Right Hand Blood Culture - Preliminary No growth in 48 hours. 04/01/21 Unknown Urine, Clean Catch Urine Culture - Final Mixed Gram Positive Organisms 03/31/21 12:50 Nasal Secretion SARS-CoV-2 Antigen (Rapid) - Final Physical Exam Narrative General: No apparent distress. Alert and oriented x3 HEENT: Normocephalic, atraumatic. Mucous membrane is moist. Neck: Supple, no JVD. Heart: Normal S1, S2. There is no rubs, murmurs or gallops. Lungs: Diffuse expiratory wheezing. Abdomen: Normal bowel sound, soft, nontender, no guarding or rebound. Extremities: No lower extremity edema. Assessment & Plan Assessment/Plan (1) LILLY (acute kidney injury): PLAN: -The patient has nephrotoxic ATN from rhabdomyolysis and ischemic ATN from prior volume depletion. CT of the abdomen and pelvis on 04/01/2021 did not reveal any hydronephrosis. I have low suspicion for other causes of LILLY at this time. -There is underlying chronic kidney disease as well. The most recent creatinine level from October 2020 was 1.3 mg/dL. His estimated GFR at that time was 55 mL/min which is CKD stage IIIa. -The patient remains nonoliguric. -Dialysis was started on 04/05/2021, SCr peaked 6.3mg/dL. -Serum creatinine is rising between dialysis. Therefore, we will dialyze the patient today. -If there is no renal recovery by early next week, I would request surgery to place tunneled hemodialysis catheter. -We will continue to monitor for any recovery of renal function. (2) Rhabdomyolysis: PLAN: -Due to the compression of right upper arm muscles. CK has been trending down. -The patient likely sustained LILLY due to nephrotoxic ATN because of rhabdomyolysis. -Continue current supportive care. (3) Hypocalcemia: PLAN: -Hypocalcemia is likely due to rhabdomyolysis as well. Calcium level has been improving and is stable. No need for calcium supplementation. (4) Metabolic acidosis: PLAN: -Acidosis was due to LILLY/CKD. Acidosis has resolved with hemodialysis. -Serum bicarbonate level is stable today 25 mmol/L today. Serum bicarbonate level was 16 mmol/L on 04/02/2021. -Serum bicarbonate level should continue to stabilize with dialysis.
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
--- NOTE | 2021-04-09 16:28 | DIALYSIS ---
hemodialysis completed x 4 hrs. Access via right neck temporary hd cath. Net UF 1000ml. pt francisco well. See HD flowsheet on chart.
[2021-04-09] MEDS: Ipratropium/Albuterol Sulfate 3 ML AMPUL.NEB INHALATION (20:06)
[2021-04-09] MEDS: 0.9% Saline Lock 10 ML Syringe IV (20:56)
[2021-04-10] VITALS (25 sets, daily range): BP systolic 119–150; BP diastolic 69–99; PULSE 88–111; RESP 20–28; TEMP 36.5–36.7; O2SAT 91–100
[2021-04-10] MEDS: Ipratropium/Albuterol Sulfate 3 ML AMPUL.NEB INHALATION ×4 (04:40→18:55)
[2021-04-10] MEDS: Oxymetazoline 0.05% 1 SPRAY SPRAY.BTL 2 SPRAY NASAL ×3 (05:53→22:30)
[2021-04-10] MEDS: Heparin Injection (Vial) 5,000 UNIT/ML VIAL 5000 UNIT SC (05:56)
[2021-04-10] MEDS: Amiodarone 200 MG Tablet 300 MG PO ×3 (06:08→22:33)
[2021-04-10 06:27] LABS: Basophil# 0.04 X10^3/uL; Basophil% 0.2 % (0-1); Hematocrit 26.2 % (40-54); Hemoglobin 8.7 g/dL (13.0-16.5); Lymphocyte % 3.9 % (19-41); Mean Corp Hgb Conc 33.2 g/dL (32-36); Mean Corpuscular Hgb 28.2 pg (27.0-32.0); Mean Corpuscular Volume 84.8 fL (80-94); Mean Platelet Vol. 11.2 fl (6.2-12.0); Monocyte# 1.02 X10^3/uL; NRBC Flagged by Analyzer 0 % (0-5); Neutrophil # 17.95 X10^3/uL (2.7-7.7); Neutrophil % 87.8 % (47-70); Platelet Count 303 K/mm3 (150-450); RBC Distribution Width CV 14.8 % (11.6-14.6); Red Blood Count 3.09 M/mm3 (4.6-6.2); White Blood Count 20.4 K/mm3 (4.4-11.0)
[2021-04-10 06:49] LABS: Albumin, Serum 1.8 g/dL (3.2-5.0); BUN 57 mg/dL (7-18); BUN/Creat Ratio 19.1 RATIO (10-20); Calcium,Total 8.3 mg/dL (8.5-10.1); Chloride 104 mmol/L (98-107); Creatinine, Serum 2.98 mg/dL (0.70-1.30); EST Glomerular Filtration Rate 22 mL/min (>60); Est Glom Filt Rate - Afr Amer 26 mL/min (>60); Estimated Creatinine Clearance 22.22 ml/min; Glucose 110 mg/dL (74-106); Phosphorus 4.4 mg/dL (2.5-4.9); Potassium 3.9 mmol/L (3.5-5.1); Sodium Level 140 mmol/L (136-145)
[2021-04-10] MEDS: Juven (unflavored) Packet 1 PACKET PO ×2 (09:44→17:08)
[2021-04-10] MEDS: dexAMETHasone 4 MG Tablet 6 MG PO (09:45)
[2021-04-10] MEDS: Metoprolol Tartrate 50 MG Tablet PO ×2 (09:46→22:35)
[2021-04-10] MEDS: Neomycin/Bacitracin/Polymyxin Ointment 1 APPLIC TOPICAL (09:46)
[2021-04-10] MEDS: Silver Sulfadiazine 1% Crm 50 gm Bottle 1 APPLIC TOPICAL ×2 (09:47→22:36)
[2021-04-10] MEDS: Piperacil/Tazobactam 3.375 GM Q12 PREMIX IV ×2 (09:50→22:31)
[2021-04-10] MEDS: Albuterol 2.5 MG/3 ML VIAL.NEB. INHALATION (11:14)
--- NOTE | 2021-04-10 12:57 | PCM.PN.REN ---
Subjective Subjective Following for LILLY. The patient is requiring more oxygen, likely due to worsening of Covid pneumonia. He denies chest pain, nausea, or vomiting. Objective Data Objective Data Vital Signs: Vital Signs Temp Pulse Resp BP Pulse Ox 98.1 F 100 26 H 134/78 H 96 04/10/21 11:44 04/10/21 11:44 04/10/21 11:44 04/10/21 11:44 04/10/21 11:44 Oxygen Flow Rate (L/min) 60 Oxygen Delivery Method Non-Rebreather @ 15L/min Weight: 95.1 kg Body Mass Index (BMI) 25.0 Intake & Output: Intake and Output for Last 24 Hours 04/08/21 04/09/21 04/10/21 23:59 23:59 23:59 Intake Total 824.60 / 884.60 915.25 / 915.25 510 / 510 Output Total 1175 / 1675 2700 / 3200 1400 / 1400 Balance -350.40 / -790.40 -1784.75 / -2284.75 -890 / -890 Lab / Micro Data Result Diagrams: 04/10/21 05:39 04/10/21 05:39 Labs: Laboratory Results - last 24 hr 04/10/21 05:39: WBC 20.4 H, RBC 3.09 L, Hgb 8.7 L, Hct 26.2 L, MCV 84.8, MCH 28.2, MCHC 33.2, RDW Std Deviation 45.0 H, RDW Coeff of Alfonso 14.8 H, Plt Count 303, MPV 11.2, Immature Gran % (Auto) 3.100 H, Neut % (Auto) 87.8 H, Lymph % (Auto) 3.9 L, [place] % (Auto) 5.0, Eos % (Auto) 0.0, Baso % (Auto) 0.2, Absolute Neuts (auto) 18.0 H, Absolute Lymphs (auto) 0.80 L, Nucleated RBC % 0 04/10/21 05:39: Sodium 140, Potassium 3.9, Chloride 104, Carbon Dioxide 28.0, BUN 57 H, Creatinine 2.98 H, Estim Creat Clear Calc 22.22, Est GFR (MDRD) Af Amer 26 L, Est GFR (MDRD) Non-Af 22 L, BUN/Creatinine Ratio 19.1, Glucose 110 H, Calcium 8.3 L, Phosphorus 4.4, Albumin 1.8 L Micro: Microbiology 04/05/21 09:48 Blood Culture (Wb) - Right Hand Blood Culture - Final No growth in 5 days. 04/05/21 09:48 Blood Culture (Wb) - Left Forearm Blood Culture - Final No growth in 5 days. 04/01/21 Unknown Urine, Clean Catch Urine Culture - Final Mixed Gram Positive Organisms 03/31/21 12:50 Nasal Secretion SARS-CoV-2 Antigen (Rapid) - Final Physical Exam Narrative General: No apparent distress. Alert and oriented x3 HEENT: Normocephalic, atraumatic. Mucous membrane is moist. Neck: Supple, no JVD. Heart: Normal S1, S2. There is no rubs, murmurs or gallops. Lungs: Diffuse expiratory wheezing. Abdomen: Normal bowel sound, soft, nontender, no guarding or rebound. Extremities: No lower extremity edema. Assessment & Plan Assessment/Plan (1) LILLY (acute kidney injury): PLAN: -The patient has nephrotoxic ATN from rhabdomyolysis and ischemic ATN from prior volume depletion. CT of the abdomen and pelvis on 04/01/2021 did not reveal any hydronephrosis. I have low suspicion for other causes of LILLY at this time. -There is underlying chronic kidney disease as well. The most recent creatinine level prior to this admission was from October 2020. Serum creatinine was 1.3 mg/dL at the time. His estimated GFR at that time was 55 mL/min which is CKD stage IIIa. -The patient remains nonoliguric. -Dialysis was started on 04/05/2021, SCr peaked 6.3mg/dL. -Serum creatinine is still rising between dialysis. Therefore, we will dialyze the patient yesterday. We will keep the patient on TTS dialysis schedule. -We will still monitor for any renal recovery between dialysis. -If there is no renal recovery by early next week, I would request surgery to place tunneled hemodialysis catheter. -We will continue to monitor for any recovery of renal function. (2) Rhabdomyolysis: PLAN: -Due to the compression of right upper arm muscles. CK has been trending down. -The patient likely sustained LILLY due to nephrotoxic ATN because of rhabdomyolysis. -Continue current supportive care. (3) Hypocalcemia: PLAN: -Hypocalcemia was likely due to rhabdomyolysis as well. Calcium level has been improving and is stable. No need for calcium supplementation. (4) Metabolic acidosis: PLAN: -Acidosis was due to LILLY/CKD. Acidosis has resolved with hemodialysis. -Serum bicarbonate level is stable today 25 mmol/L today. Serum bicarbonate level was 16 mmol/L on 04/02/2021. -Serum bicarbonate level should continue to stabilize with dialysis.
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
--- NOTE | 2021-04-10 14:35 | RAD_ITS ---
STUDY: X-RAY CHEST REASON FOR EXAM: Male, 80 years old. Wheezing TECHNIQUE: Single AP portable view of the chest. COMPARISON: 04/05/2021 FINDINGS: Right internal jugular temporary dialysis catheter which is unchanged. Increase in alveolar opacities in both lungs particularly in the upper lobes consistent with worsening bilateral pneumonia, pulmonary edema, or ARDS. There is no demonstrated pleural abnormality. Normal size heart. Normal mediastinum and raquel. Normal visualized pulmonary arteries. Normal visualized aortic arch and descending thoracic aorta. Normal visualized thoracic spine. Normal visualized ribs, clavicles, and shoulders. There is no demonstrated abnormality of the visualized soft tissue structures of the upper abdomen. RAD/Chest 1 View (Portable) IMPRESSION: Worsening bilateral pneumonia, pulmonary edema, or ARDS. Electronically Signed: Hamilton Hayward MD at 15:01 EST Tel , Service support ,
[2021-04-10 19:26] LABS: Allen Test Positive; Base Excess 4 mmol/L (-2 to +2); Bicarbonate 26.7 mmol/L (22-26); Blood Gas Specimen Type ART; Comment AirVo 60 lpm; FI02 93; PO2 93 mmHG (75-100); SITE L Radial; SO2 98 % (95-99); Total Carbon Dioxide 28 mmol/L; pCO2 30.2 mmHg (35-45); pH 7.55 (7.35-7.45)
[2021-04-10 19:39] LABS: D-Dimer Quantitative (DVT/PE) 1.74 FEU/ug/m (0.27-0.49)
[2021-04-10 22:15] LABS: International Normalized Ratio 1.3; Prothrombin Time (Protime)PT. 15.4 SECONDS (11.7-14.9)
[2021-04-10 22:16] LABS: Partial Thromboplast Time 33.5 Seconds (24.1-36.2)
[2021-04-11] VITALS (19 sets, daily range): BP systolic 124–146; BP diastolic 75–88; PULSE 90–110; RESP 18–26; TEMP 36.4–36.9; O2SAT 91–97
[2021-04-11] MEDS: Ipratropium/Albuterol Sulfate 3 ML AMPUL.NEB INHALATION ×4 (02:10→20:40)
[2021-04-11 04:57] LABS: Absolute Lymphocyte Count 0.52 X10^3/uL (0.83-4.51); Absolute Neutrophil Count 13.3 X10^3/uL (2.0-7.7); Basophil# 0.01 X10^3/uL; Basophil% 0.1 % (0-1); Hematocrit 24.7 % (40-54); Hemoglobin 8.3 g/dL (13.0-16.5); Lymphocyte # 0.52 X10^3/ul (0.83-4.51); Lymphocyte % 3.5 % (19-41); Mean Corp Hgb Conc 33.6 g/dL (32-36); Mean Corpuscular Hgb 28.4 pg (27.0-32.0); Mean Corpuscular Volume 84.6 fL (80-94); Mean Platelet Vol. 10.5 fl (6.2-12.0); Monocyte# 0.62 X10^3/uL; Monocyte% 4.2 % (0-10); NRBC Flagged by Analyzer 0 % (0-5); Neutrophil # 13.34 X10^3/uL (2.7-7.7); Neutrophil % 89.6 % (47-70); POSITIVE DIFFERENTIAL YES; Platelet Count 329 K/mm3 (150-450); RBC Distribution Width CV 14.8 % (11.6-14.6); RBC Distribution Width SD 45.1 fl (35.1-43.9); Red Blood Count 2.92 M/mm3 (4.6-6.2); White Blood Count 14.9 K/mm3 (4.4-11.0)
[2021-04-11 05:00] LABS: Differential Indicated SCAN CRITERIA MET
[2021-04-11 05:08] LABS: Partial Thromboplast Time 101.6 Seconds (24.1-36.2)
[2021-04-11 05:18] LABS: Albumin, Serum 1.7 g/dL (3.2-5.0); BUN 79 mg/dL (7-18); BUN/Creat Ratio 22.4 RATIO (10-20); Chloride 104 mmol/L (98-107); Creatinine, Serum 3.52 mg/dL (0.70-1.30); EST Glomerular Filtration Rate 18 mL/min (>60); Est Glom Filt Rate - Afr Amer 22 mL/min (>60); Estimated Creatinine Clearance 18.81 ml/min; Glucose 135 mg/dL (74-106); Sodium Level 141 mmol/L (136-145)
[2021-04-11 05:27] LABS: Anisocytosis 1+
[2021-04-11] MEDS: Amiodarone 200 MG Tablet 300 MG PO ×3 (05:57→20:31)
[2021-04-11] MEDS: Juven (unflavored) Packet 1 PACKET PO ×2 (08:36→18:02)
[2021-04-11] MEDS: Metoprolol Tartrate 50 MG Tablet PO ×2 (08:37→20:31)
[2021-04-11] MEDS: Oxymetazoline 0.05% 1 SPRAY SPRAY.BTL 2 SPRAY NASAL ×2 (08:38→20:32)
[2021-04-11] MEDS: Neomycin/Bacitracin/Polymyxin Ointment 1 APPLIC TOPICAL (08:39)
[2021-04-11] MEDS: Silver Sulfadiazine 1% Crm 50 gm Bottle 1 APPLIC TOPICAL ×2 (08:40→20:31)
[2021-04-11] MEDS: Piperacil/Tazobactam 3.375 GM Q12 PREMIX IV ×2 (08:40→20:30)
--- NOTE | 2021-04-11 10:47 | CASEMGMT ---
TRAM called [facility] in [place] and spoke with Sylvia. SW let her know patient will be on dialysis. SW also let her know that patient is now worse on O2 so he is not ready. TRAM asked that SW send a new referral when he is closer to discharge. Silvina Ferrera SKI TECHNICIAN ANDREEA
--- NOTE | 2021-04-11 11:22 | WOUNDNOTE ---
Assisted therapy in getting patient to the chair. pulse ox had dropped into the 70's in airvo. waited in room until pulse ox was back up to 92%. DREA Nicholas aware to monitor. call light in reach. pt tolerated dressing change to the LLE well. TUAN Butler had assessed wound during dressing change as well.
[2021-04-11 12:48] LABS: Partial Thromboplast Time 43.7 Seconds (24.1-36.2)
--- NOTE | 2021-04-11 13:14 | CON.PCM.CC_ITS ---
Assessment & Plan Assessment/Plan (1) COVID-19: PLAN: RECOMMENDATIONS: 1. Continue to wean FiO2 as tolerated for saturations greater than 90%. 2. Transition from Solu-Medrol to Decadron 6 mg daily to complete 10 days of therapy. 3. Volume status management with dialysis per nephrology. 4. Continue empiric antimicrobials to complete 7 days of therapy. 5. Empiric heparin infusion. VQ scan is of no utility given abnormal chest x- ray. 6. Awake prone positioning was encouraged. 7. Given that the patient is not a candidate for any additional medical therapy and remains DNR CCA without intubation, will sign off. Please call with any additional questions. IMPRESSIONS: 1. Acute hypoxemic respiratory failure secondary to COVID-19 pneumonia The patient was initially diagnosed on April 05 while admitted to the hospital. He has demonstrated worsening oxygenation status since that time. The patient has underlying renal insufficiency. Therefore, he is not a candidate for remdesivir or baricitinib. The patient was initially started on Decadron and then transition to IV Solu-Medrol for reasons that are not clear to me. From my perspective, the patient can be placed back on IV Decadron 6 mg daily to complete his 10 days of therapy. It is reasonable to continue empiric antimicrobials to complete 7 days of therapy. His D-dimer was previously mildly elevated, for which she was placed empirically on a heparin infusion. The patient remains DNR CCA without intubation. Volume status will be deferred to nephrology with dialysis. At this time, I have no additional medical recommendations, in light of the patient's no intubation status. 2. Acute on chronic kidney disease Management per nephrology. 3. Anemia of chronic disease Continue to monitor H&H daily. Transfuse if hemoglobin is less than 7 g/dL. This note was generated with Locatelyation software. It may contain incorrect words, spelling, and punctuation that were not noted in checking the note before signing. HPI Consult Data Date of Consult: 04/11/21 HPI Narrative Reason for Consultation: Acute hypoxemic respiratory failure secondary to COVID- 19 pneumonia HPI Narrative: The patient is an 80-year-old male, with a history as outlined below, who initially presented to the emergency department on March 31 with confusion after sustaining a mechanical fall. The patient's hospital course has been complicated by a diagnosis of COVID-19 on April 05. In addition, the patient has acute on chronic kidney disease, which is currently being managed by nephrology. The patient's CODE STATUS was verified to be DNR CCA without intubation. The patient appears to have received 6 days of Decadron and then was transitioned to methylprednisone, for reasons that are not clear to me. The patient is not a candidate for baricitinib or remdesivir. D-dimer was noted to be 1.74 on April 10. Therefore, the patient was placed on a heparin infusion to empirically treat him for possible VTE. He also remains on antimicrobials. [facility] Medical History History of atrial fibrillation History of prostate cancer HTN (hypertension) Skew deviation of eye, left Home Medications apixaban 5 mg PO BID #74 tab 08/16/19 [Rx Last Taken 03/30/21] hydrochlorothiazide 12.5 mg PO DAILY 03/31/21 [History Last Taken 03/30/21] metoprolol tartrate 25 mg PO DAILY 03/31/21 [History Last Taken 03/30/21] vit C,T-Kj-syxet-lutein-zeaxan [PreserVision AREDS-2] 2 tab PO DAILY 03/31/21 [History Last Taken Unknown] Allergy/AdvReac Type Severity Reaction Status Date / Time acyclovir Allergy PT UNSURE Verified 08/19/19 07:57 OF REACTION Family History Mother Hypertension HLD (hyperlipidemia) CVA (cerebral vascular accident) Father Parkinson disease Surgical History History of surgery on arm S/P appendectomy Social History household members: none Smoking Status: Never smoker alcohol intake: never substance use type: does not use ROS Constitutional Constitutional: Reports fatigue, malaise and weakness Eyes Eyes: Denies blurry vision or change in vision ENT HEENT: Denies dizziness, epistaxis or headache(s) Cardiovascular Cardiovascular: Reports dyspnea Respiratory/Chest Respiratory/Chest: Reports dyspnea Gastrointestinal Gastrointestinal: Denies abdominal pain, diarrhea, nausea or vomiting Genitourinary Genitourinary: Reports difficulty urinating Musculoskeletal Musculoskeletal: Denies arthralgias or back pain Integumentary Integumentary: Reports wounds; Denies lesions or rash Neurologic Neurologic: Denies abnormal gait or abnormal speech Psychiatric Psychiatric: Denies anxiety or depression Endocrine Endocrinology: Reports fatigue Hematologic/Lymphatic Hematologic/Lymphatic: Denies easy bleeding or easy bruising Physical Exam Const alert and no apparent distress General Appearance: cooperative HEENT normocephalic and head/scalp atraumatic Eyes PERRL and EOMs intact bilaterally Neck supple General: trachea midline Chest inspection of chest normal Resp no use of accessory muscles Auscultation: diminished lung sounds; Negative for rales, rhonchi or wheezes Cardio regular rate and regular rhythm GI normal to inspection, nondistended, normoactive bowel sounds Extremity General Extremity: edema Skin Wound Narrative: Dressing present on lower extremity Neuro no focal motor deficits Psych Mood & Affect: flat affect Lab / Micro Data Result Diagrams: 04/11/21 04:42 04/11/21 04:42 Labs: Laboratory Results - last 24 hr 04/10/21 19:08: D-Dimer Quant (PE/DVT) 1.74 H* 04/10/21 19:08: PT 15.4 H, INR 1.3, APTT 33.5 04/11/21 04:42: WBC 14.9 H, RBC 2.92 L, Hgb 8.3 L, Hct 24.7 L, MCV 84.6, MCH 28.4, MCHC 33.6, RDW Std Deviation 45.1 H, RDW Coeff of Alfonso 14.8 H, Plt Count 329, MPV 10.5, Immature Gran % (Auto) 2.600 H, Neut % (Auto) 89.6 H, Lymph % (Auto) 3.5 L, [place] % (Auto) 4.2, Eos % (Auto) 0.0, Baso % (Auto) 0.1, Absolute Neuts (auto) 13.3 H, Absolute Lymphs (auto) 0.52 L, Nucleated RBC % 0, Anisocytosis 1+ 04/11/21 04:42: Sodium 141, Potassium 4.0, Chloride 104, Carbon Dioxide 26.0, BUN 79 H, Creatinine 3.52 H, Estim Creat Clear Calc 18.81, Est GFR (MDRD) Af Amer 22 L, Est GFR (MDRD) Non-Af 18 L, BUN/Creatinine Ratio 22.4 H, Glucose 135 H, Calcium 8.0 L, Phosphorus 5.0 H, Albumin 1.7 L 04/11/21 04:42: APTT 101.6 H* 04/11/21 12:12: APTT 43.7 H Micro: Microbiology 04/10/21 14:45 Stool Stool Occult Blood (JOE) - Final 04/05/21 09:48 Blood Culture (Wb) - Right Hand Blood Culture - Final No growth in 5 days. 04/05/21 09:48 Blood Culture (Wb) - Left Forearm Blood Culture - Final No growth in 5 days. ABG Data ABG results: ABG 04/10/21 19:19 Specimen Type ART Sample Site L Radial pH 7.55 H Bicarbonate Actual 26.7 H Total CO2 28 Base Excess 4 H O2 Saturation 98 O2 % 93 ABG pCO2 30.2 L ABG pO2 93 Fili Test Positive Clinical Comments AirVo 60 lpm Radiology Impression Chest X-Ray 04/10/21 14:35 IMPRESSION: Worsening bilateral pneumonia, pulmonary edema, or ARDS. Electronically Signed: Hamilton Hayward MD at 15:01 EST Tel , Service support , Charges/Coding Visit Charges Inpatient E&M: 62828 Init Hosp L3
[2021-04-11] MEDS: 0.9% Saline Lock 10 ML Syringe IV (13:22)
[2021-04-11] MEDS: Heparin Injection (Vial) 5,000 UNIT/ML VIAL IV (13:26)
--- NOTE | 2021-04-11 14:21 | PN.HOSP_ITS ---
Documented by User: Luke DICKERSON 04/11/21 14:28 Subjective Subjective Patient is an 80-year-old male lying in bed, alert and oriented x3. Patient still in acute respiratory distress, although patient denies any symptoms. Objective Data Objective Data Vital Signs: Vital Signs Temp Pulse Resp BP Pulse Ox 97.6 F L 91 18 146/88 H 94 04/11/21 08:35 04/11/21 13:00 04/11/21 13:00 04/11/21 08:37 04/11/21 11:28 Oxygen Flow Rate (L/min) 59 Oxygen Delivery Method Airvo Weight: 203 lb 7.787 oz Body Mass Index (BMI) 25.0 Intake & Output: Intake and Output for Last 24 Hours 04/09/21 04/10/21 04/11/21 23:59 23:59 23:59 Intake Total 915.25 / 915.25 1010 / 1210 689.96 / 689.96 Output Total 2700 / 3200 1700 / 2250 830 / 830 Balance -1784.75 / -2284.75 -690 / -1040 -140.04 / -140.04 Lab / Micro Data Result Diagrams: 04/11/21 04:42 04/11/21 04:42 Labs: Laboratory Results - last 24 hr 04/10/21 19:08: D-Dimer Quant (PE/DVT) 1.74 H* 04/10/21 19:08: PT 15.4 H, INR 1.3, APTT 33.5 04/11/21 04:42: WBC 14.9 H, RBC 2.92 L, Hgb 8.3 L, Hct 24.7 L, MCV 84.6, MCH 28.4, MCHC 33.6, RDW Std Deviation 45.1 H, RDW Coeff of Alfonso 14.8 H, Plt Count 329, MPV 10.5, Immature Gran % (Auto) 2.600 H, Neut % (Auto) 89.6 H, Lymph % (Auto) 3.5 L, [place] % (Auto) 4.2, Eos % (Auto) 0.0, Baso % (Auto) 0.1, Absolute Neuts (auto) 13.3 H, Absolute Lymphs (auto) 0.52 L, Nucleated RBC % 0, Anisocytosis 1+ 04/11/21 04:42: Sodium 141, Potassium 4.0, Chloride 104, Carbon Dioxide 26.0, BUN 79 H, Creatinine 3.52 H, Estim Creat Clear Calc 18.81, Est GFR (MDRD) Af Amer 22 L, Est GFR (MDRD) Non-Af 18 L, BUN/Creatinine Ratio 22.4 H, Glucose 135 H, Calcium 8.0 L, Phosphorus 5.0 H, Albumin 1.7 L 04/11/21 04:42: APTT 101.6 H* 04/11/21 12:12: APTT 43.7 H Micro: Microbiology 04/10/21 14:45 Stool Stool Occult Blood (JOE) - Final 04/05/21 09:48 Blood Culture (Wb) - Right Hand Blood Culture - Final No growth in 5 days. 04/05/21 09:48 Blood Culture (Wb) - Left Forearm Blood Culture - Final No growth in 5 days. 04/01/21 Unknown Urine, Clean Catch Urine Culture - Final Mixed Gram Positive Organisms 03/31/21 12:50 Nasal Secretion SARS-CoV-2 Antigen (Rapid) - Final ABG Data ABG results: ABG 04/10/21 19:19 Specimen Type ART Sample Site L Radial pH 7.55 H Bicarbonate Actual 26.7 H Total CO2 28 Base Excess 4 H O2 Saturation 98 O2 % 93 ABG pCO2 30.2 L ABG pO2 93 Fili Test Positive Clinical Comments AirVo 60 lpm Radiography Diagnostic Testing: Radiology Impression Chest X-Ray 04/10/21 14:35 IMPRESSION: Worsening bilateral pneumonia, pulmonary edema, or ARDS. Electronically Signed: Hamilton Hayward MD at 15:01 EST Tel , Service support , Physical Exam Const alert, oriented x3 and no apparent distress HEENT head/scalp atraumatic and moist oral mucous membranes Head and Scalp: normocephalic Eyes PERRL, EOMs intact bilaterally and conjunctivae normal Neck no lymphadenopathy, supple and no JVD Resp Resp Narrative: Patient is on air Vo at an FiO2 of 75 and is satting 94%. Effort and Inspection: tachypneic, respiratory distress and labored Auscultation: diminished lung sounds Cardio regular rate, regular rhythm, no murmurs and no JVD GI normal to inspection, nondistended, normoactive bowel sounds, soft to palpation and non-tender Extremity normal to inspection, full ROM and no clubbing, cyanosis or edema Skin no rashes or lesions noted, no wounds and skin turgor normal Neuro CN's II-XII intact bilaterally Psych affect normal Assessment & Plan Assessment/Plan (1) COVID-19: (2) Anemia: (3) Metabolic acidosis: (4) Acute respiratory failure with hypoxia: PLAN: Day 11 Discharge planning: Current plan is for patient to discharge to SNF when appropriate facility has been identified. CM/SW following. 1) acute hypoxic respiratory failure secondary to COVID-19 infection Patient's PCR tested positive for Covid 04/05/2021. On Decadron, not on remdesivir due to renal function. Oxygen requirements have continued to increase as he is now on air Vo at 60 L to sat at 96%. Patient wheezing is now audible without auscultation is gotten worse since yesterday. White count slightly improved from yesterday, still elevated with WBCs at 14.9. Patient's D-dimer was elevated, given patient's ESRD will obtain VQ scan to assess for PE. Chest x-ray from 04/10/2021 shows worsening bilateral pneumonia or possible progression to ARDS. Continue Zosyn to cover for pneumonia, await VQ scan results, continue heparin, continue solu moderol, pulmonary following. 2) LILLY on CKD stage IV Creatinine currently 3.52, dialzyed on 04/09/2021 in accordance with Sunday, and Sunday schedule. Combined nephrotoxic ATN secondary to rhabdomyolysis and ischemic ATN from prior volume depletion. Current plan is to install tunneled dialysis catheter for permanent hemodialysis, has not been able to be completed due to supply issue. To be dialyzed tomorrow, nephrology following. 3) rhabdomyolysis Contributing to #1. CK has been continue to trend down, continue to monitor. 4) anemia of chronic disease Stable, hemoglobin currently 8.3, transfused 1 unit of PRBCs on 04/06. Continue to monitor. DVT prophylaxis - Heparin Patient seen by Luke Soria PA-C, under the supervision of Dr. Monroy. Time spent on patient care: 10 minutes. Documented by User: Dr. Blanka Monroy MD 04/11/21 16:01 Objective Data Lab / Micro Data Result Diagrams: 04/11/21 04:42 04/11/21 04:42 Charges/Coding Addendum Addendum: Patient seen with Luke Soria PA-C Patient seen and examined. He was lying in bed. He was alert but appeared confused and was not really answering any questions. He was on air Vo. O/E; Const alert, not very responsive, only muttering in response to questions HEENT head/scalp atraumatic and moist oral mucous membranes Head and Scalp: normocephalic Eyes PERRL, EOMs intact bilaterally and conjunctivae normal Neck no lymphadenopathy, supple and no JVD Resp Resp Narrative: Patient is on air Vo at an FiO2 of 75 Effort and Inspection: tachypneic, respiratory distress and labored Auscultation: diminished lung sounds Cardio regular rate, regular rhythm, no murmurs and no JVD GI normal to inspection, nondistended, normoactive bowel sounds, soft to palpation and non-tender Extremity normal to inspection, full ROM and no clubbing, cyanosis or edema Skin no rashes or lesions noted, no wounds and skin turgor normal Neuro CN's II-XII intact bilaterally Psych flat affect Assessment and plan. #Acute hypoxic respiratory failure due to covid 19 pneumonia * on AirVo. Now on 60L of oxygen. D-dimer was also elevated. However in light of his impaired kidney function, the utility of the elevated D-dimer is low. * Will not get a VQ scan as his lungs are compromised so VQ scan will be of little benefit. * Chest x-ray from 04/10/2021 showed worsening bilateral pneumonia with possible progression to ARDS. * Or Zosyn. Patient was switched to IV Solu-Medrol. However I think his symptoms are due to worsening COVID infection so we will switch him back to Decadron which is proving to be beneficial in COVID infection. * Pulmonology on board. * #LILLY on CKD stage IV * This is likely due to ATN from rhabdomyolysis. Currently receiving dialysis through temporary dialysis catheter. * Nephrology on board. * #Rhabdomyolysis: This is largely resolved. No monitor CPK #History of A. fib:was put on heparin drip on admission nad eliquis held. #Left distal fibular fracture: for conservative management. PT./OT on board. Fall precautions. #Anemia of chornic disease * Was transfused with 1 unit of packed red blood cells on the fifth. Hemoglobin is 8.3 today. * DVT prophylaxis: on heparin drip. Code status:DNRCCA no intubation Total time spent on care of patient today: 25 mins. Visit Charges Inpatient E&M: 04962 Subs Hosp L3
--- NOTE | 2021-04-11 15:30 | PN.RENAL_ITS ---
Subjective Subjective No overnight events. No complaints. Objective Data Objective Data Vital Signs: Vital Signs Temp Pulse Resp BP Pulse Ox 97.6 F L 91 18 146/88 H 94 04/11/21 08:35 04/11/21 13:00 04/11/21 13:00 04/11/21 08:37 04/11/21 11:28 Oxygen Flow Rate (L/min) 59 Oxygen Delivery Method Airvo Weight: 92.3 kg Body Mass Index (BMI) 25.0 Intake & Output: Intake and Output for Last 24 Hours 04/09/21 04/10/21 04/11/21 23:59 23:59 23:59 Intake Total 915.25 / 915.25 1010 / 1210 689.96 / 689.96 Output Total 2700 / 3200 1700 / 2250 830 / 830 Balance -1784.75 / -2284.75 -690 / -1040 -140.04 / -140.04 Lab / Micro Data Result Diagrams: 04/11/21 04:42 04/11/21 04:42 Labs: Laboratory Results - last 24 hr 04/10/21 19:08: D-Dimer Quant (PE/DVT) 1.74 H* 04/10/21 19:08: PT 15.4 H, INR 1.3, APTT 33.5 04/11/21 04:42: WBC 14.9 H, RBC 2.92 L, Hgb 8.3 L, Hct 24.7 L, MCV 84.6, MCH 28.4, MCHC 33.6, RDW Std Deviation 45.1 H, RDW Coeff of Alfonso 14.8 H, Plt Count 329, MPV 10.5, Immature Gran % (Auto) 2.600 H, Neut % (Auto) 89.6 H, Lymph % (Auto) 3.5 L, [place] % (Auto) 4.2, Eos % (Auto) 0.0, Baso % (Auto) 0.1, Absolute Neuts (auto) 13.3 H, Absolute Lymphs (auto) 0.52 L, Nucleated RBC % 0, Anisocytosis 1+ 04/11/21 04:42: Sodium 141, Potassium 4.0, Chloride 104, Carbon Dioxide 26.0, BUN 79 H, Creatinine 3.52 H, Estim Creat Clear Calc 18.81, Est GFR (MDRD) Af Amer 22 L, Est GFR (MDRD) Non-Af 18 L, BUN/Creatinine Ratio 22.4 H, Glucose 135 H, Calcium 8.0 L, Phosphorus 5.0 H, Albumin 1.7 L 04/11/21 04:42: APTT 101.6 H* 04/11/21 12:12: APTT 43.7 H Micro: Microbiology 04/10/21 14:45 Stool Stool Occult Blood (JOE) - Final 04/05/21 09:48 Blood Culture (Wb) - Right Hand Blood Culture - Final No growth in 5 days. 04/05/21 09:48 Blood Culture (Wb) - Left Forearm Blood Culture - Final No growth in 5 days. 04/01/21 Unknown Urine, Clean Catch Urine Culture - Final Mixed Gram Positive Organisms 03/31/21 12:50 Nasal Secretion SARS-CoV-2 Antigen (Rapid) - Final ABG Data ABG results: ABG 04/10/21 19:19 Specimen Type ART Sample Site L Radial pH 7.55 H Bicarbonate Actual 26.7 H Total CO2 28 Base Excess 4 H O2 Saturation 98 O2 % 93 ABG pCO2 30.2 L ABG pO2 93 Fili Test Positive Clinical Comments AirVo 60 lpm Physical Exam Narrative General: No apparent distress. Alert and oriented x3 HEENT: Normocephalic, atraumatic. Mucous membrane is moist. Neck: Supple, no JVD. Heart: Normal S1, S2. There is no rubs, murmurs or gallops. Lungs: Diffuse expiratory wheezing. Abdomen: Normal bowel sound, soft, nontender, no guarding or rebound. Extremities: No lower extremity edema. Assessment & Plan Assessment/Plan (1) LILLY (acute kidney injury): PLAN: -The patient has nephrotoxic ATN from rhabdomyolysis and ischemic ATN from prior volume depletion. CT of the abdomen and pelvis on 04/01/2021 did not reveal any hydronephrosis. I have low suspicion for other causes of LILLY at this time. -There is underlying chronic kidney disease as well. The most recent creatinine level prior to this admission was from October 2020. Serum creatinine was 1.3 mg/dL at the time. His estimated GFR at that time was 55 mL/min which is CKD stage IIIa. -The patient remains nonoliguric. -Dialysis was started on 04/05/2021, SCr peaked 6.3mg/dL. -Serum creatinine is still rising between dialysis. No acute indication for CREDIT CONTROL ASSISTANT today but will evaluate for HD tomorrow. For now we will keep the patient on TTS dialysis schedule. -We will still monitor for any renal recovery between dialysis. -If there is no renal recovery, I would request surgery to place tunneled hemodialysis catheter before discharge from hospital if remains HD dependent. Patient's oxygen requirement is between non-rebreather to Airvo. -We will continue to monitor for any recovery of renal function. - labs ordered for am (2) Rhabdomyolysis: PLAN: -Due to the compression of right upper arm muscles. CK has been trending down. CK 20,600 on admission -The patient likely sustained LILLY due to nephrotoxic ATN because of rhabdomyolysis. -Continue current supportive care. (3) Hypocalcemia: PLAN: -Hypocalcemia was likely due to rhabdomyolysis as well. Calcium level is stable. No need for calcium supplementation. (4) Metabolic acidosis: PLAN: -Acidosis was due to LILLY/CKD. Acidosis has resolved with hemodialysis. -Serum bicarbonate level is stable, normalized today. Serum bicarbonate level was 16 mmol/L on 04/02/2021. -Serum bicarbonate level should continue to stabilize with dialysis.
[2021-04-11] MEDS: HEPARIN/D5w 25,000 UNITS 25,000 UNITS/250 ML IV.SOLN. 14 UNITS IV (18:02)
--- NOTE | 2021-04-11 23:12 | CPS ---
Walked in and found pt 74% on room air. Pt took off all oxygen apparatuses RN and charge nurse aware.
[2021-04-12] VITALS (20 sets, daily range): BP systolic 122–156; BP diastolic 70–97; PULSE 94–115; RESP 16–26; TEMP 36.1–36.6; O2SAT 91–98
[2021-04-12 01:11] LABS: Partial Thromboplast Time 82.5 Seconds (24.1-36.2)
[2021-04-12] MEDS: Ipratropium/Albuterol Sulfate 3 ML AMPUL.NEB INHALATION ×4 (01:43→20:58)
--- NOTE | 2021-04-12 01:44 | CPS ---
pt swallowed sputum that hecoughed up
--- NOTE | 2021-04-12 03:04 | CPS ---
Pt must wear NRB mask over airvo from time to time when O2 sats drop occassionally
[2021-04-12] MEDS: Amiodarone 200 MG Tablet 300 MG PO ×3 (04:56→22:57)
[2021-04-12 07:42] LABS: Absolute Lymphocyte Count 0.47 X10^3/uL (0.83-4.51); Basophil# 0.02 X10^3/uL; Basophil% 0.1 % (0-1); Hematocrit 25.4 % (40-54); Hemoglobin 8.1 g/dL (13.0-16.5); Lymphocyte # 0.47 X10^3/ul (0.83-4.51); Lymphocyte % 2.7 % (19-41); Mean Corp Hgb Conc 31.9 g/dL (32-36); Mean Corpuscular Hgb 27.4 pg (27.0-32.0); Mean Corpuscular Volume 85.8 fL (80-94); Mean Platelet Vol. 10.3 fl (6.2-12.0); Monocyte# 0.79 X10^3/uL; Monocyte% 4.5 % (0-10); NRBC Flagged by Analyzer 0 % (0-5); Neutrophil # 15.95 X10^3/uL (2.7-7.7); Neutrophil % 91.1 % (47-70); POSITIVE DIFFERENTIAL YES; Platelet Count 392 K/mm3 (150-450); RBC Distribution Width CV 14.8 % (11.6-14.6); RBC Distribution Width SD 45.9 fl (35.1-43.9); Red Blood Count 2.96 M/mm3 (4.6-6.2); White Blood Count 17.5 K/mm3 (4.4-11.0)
[2021-04-12 07:59] LABS: Differential Indicated SCAN CRITERIA MET
[2021-04-12 08:01] LABS: Albumin, Serum 1.8 g/dL (3.2-5.0); BUN 114 mg/dL (7-18); BUN/Creat Ratio 27.3 RATIO (10-20); Calcium,Total 8.6 mg/dL (8.5-10.1); Chloride 105 mmol/L (98-107); Creatinine, Serum 4.18 mg/dL (0.70-1.30); EST Glomerular Filtration Rate 15 mL/min (>60); Est Glom Filt Rate - Afr Amer 18 mL/min (>60); Estimated Creatinine Clearance 15.84 ml/min; Glucose 142 mg/dL (74-106); Phosphorus 5.4 mg/dL (2.5-4.9); Potassium 3.8 mmol/L (3.5-5.1); Sodium Level 143 mmol/L (136-145)
[2021-04-12 08:54] LABS: Partial Thromboplast Time 79.1 Seconds (24.1-36.2)
[2021-04-12] MEDS: Heparin 10,000 UNITS/10 ML Vial IV (11:00)
--- NOTE | 2021-04-12 11:53 | CASEMGMT ---
This RN CM spoke with Susu at [facility] and she states pt has been accepted at [facility] with chair time of MWF at 0610 and she is aware that pt likely will not start there until next week. CM to follow. Elif UGALDE aware of chair time for SNF placement. SStfilomena SHEPARD CM
--- NOTE | 2021-04-12 13:16 | PN.HOSP_ITS ---
Documented by User: Luke DICKERSON 04/12/21 13:36 Subjective Subjective Patient is an 80-year-old male lying in bed, alert and oriented x3. Patient's respiratory status seems about the same from yesterday, patient denies development of any new symptoms overnight. Does not appear in acute distress. Objective Data Objective Data Vital Signs: Vital Signs Temp Pulse Resp BP Pulse Ox 97.1 F L 101 H 24 H 150/79 H 95 04/12/21 09:30 04/12/21 09:30 04/12/21 09:30 04/12/21 09:30 04/12/21 09:30 Oxygen Flow Rate (L/min) 60 Oxygen Delivery Method Airvo Weight: 201 lb 11.567 oz Body Mass Index (BMI) 25.0 Intake & Output: Intake and Output for Last 24 Hours 04/10/21 04/11/21 04/12/21 23:59 23:59 23:59 Intake Total 1010 / 1210 977.33 / 977.33 164.4 / 164.4 Output Total 1700 / 2250 1230 / 1230 475 / 475 Balance -690 / -1040 -252.67 / -252.67 -310.6 / -310.6 Lab / Micro Data Result Diagrams: 04/12/21 07:30 04/12/21 07:30 Labs: Laboratory Results - last 24 hr 04/12/21 00:35: APTT 82.5 H 04/12/21 07:30: WBC 17.5 H, RBC 2.96 L, Hgb 8.1 L, Hct 25.4 L, MCV 85.8, MCH 27.4, MCHC 31.9 L D, RDW Std Deviation 45.9 H, RDW Coeff of Alfonso 14.8 H, Plt Count 392, MPV 10.3, Immature Gran % (Auto) 1.600 H, Neut % (Auto) 91.1 H, Lymph % (Auto) 2.7 L, Mcintosh % (Auto) 4.5, Eos % (Auto) 0.0, Baso % (Auto) 0.1, Absolute Neuts (auto) 16.0 H, Absolute Lymphs (auto) 0.47 L, Nucleated RBC % 0 04/12/21 07:30: Sodium 143, Potassium 3.8, Chloride 105, Carbon Dioxide 28.0, BUN 114 H*, Creatinine 4.18 H, Estim Creat Clear Calc 15.84, Est GFR (MDRD) Af Amer 18 L, Est GFR (MDRD) Non-Af 15 L, BUN/Creatinine Ratio 27.3 H, Glucose 142 H, Calcium 8.6, Phosphorus 5.4 H, Albumin 1.8 L 04/12/21 07:30: APTT Cancelled 04/12/21 08:34: APTT 79.1 H Micro: Microbiology 04/10/21 14:45 Stool Stool Occult Blood (JOE) - Final 04/05/21 09:48 Blood Culture (Wb) - Right Hand Blood Culture - Final No growth in 5 days. 04/05/21 09:48 Blood Culture (Wb) - Left Forearm Blood Culture - Final No growth in 5 days. 04/01/21 Unknown Urine, Clean Catch Urine Culture - Final Mixed Gram Positive Organisms 03/31/21 12:50 Nasal Secretion SARS-CoV-2 Antigen (Rapid) - Final Physical Exam Const alert, oriented x3 and no apparent distress HEENT head/scalp atraumatic and moist oral mucous membranes Head and Scalp: normocephalic Eyes PERRL, EOMs intact bilaterally and conjunctivae normal Neck no lymphadenopathy, supple and no JVD Resp Resp Narrative: Currently satting at 95% with air Vo at 60 L/min. Effort and Inspection: tachypneic, respiratory distress and labored Auscultation: diminished lung sounds Cardio regular rate, regular rhythm, no murmurs and no JVD GI normal to inspection, nondistended, normoactive bowel sounds, soft to palpation and non-tender Extremity normal to inspection, full ROM and no clubbing, cyanosis or edema Skin no rashes or lesions noted, no wounds and skin turgor normal Neuro CN's II-XII intact bilaterally Psych affect normal Assessment & Plan Assessment/Plan (1) Acute respiratory failure with hypoxia: (2) COVID-19: (3) Metabolic acidosis: (4) Anemia: (5) LILLY (acute kidney injury): (6) Rhabdomyolysis: PLAN: Day 12 Discharge planning: TBD, hospice consult ordered. Patient's daughters who are both the patient's HPOA's, Carmelina and Marianna, will come in for hospice consult on 04/13/2021 at 10:30 AM. 1) acute hypoxic respiratory failure secondary to COVID-19 infection' Patient still requiring Airvo at 60 L/min to sat at 95%. Patient's overall respiratory status is still labored and respirations are tachypneic, patient's overall clinical picture is not improving despite therapy. An retread technician gregory mcdonnell was obtained on 04/11/2021, they were in agreement with current treatments and did not have any additional input given patient's wishes and overall clinical picture. We will continue Decadron (day 7 of 10), discontinue Zosyn as 7-day course is complete, continue heparin, hospice consult ordered as above. 2) LILLY on CKD stage IV Creatinine currently 4.18, to be dialyzed today 04/11/2021 in accordance with Sunday, and Sunday schedule. Combined nephrotoxic ATN secondary to rhabdomyolysis and ischemic ATN from prior volume depletion. To be dialyzed tomorrow, nephrology following. 3) rhabdomyolysis Contributing to #1. CK has been continue to trend down, continue to monitor. 4) anemia of chronic disease Stable, hemoglobin currently 8.1, transfused 1 unit of PRBCs on 04/06. Continue to monitor. DVT prophylaxis - Heparin Advanced care planning; Patients HPOA's are his daughters Carmelina and Marianna, now both involved in care. Carmelina's phone number is [phone]. Marianna's phone number is [phone]. Patient seen by Luke Soria PA-C, under the supervision of Dr. Monroy. Time spent on patient care: 12 minutes. Documented by User: Dr. Blanka Monroy MD 04/12/21 15:19 Objective Data Lab / Micro Data Result Diagrams: 04/12/21 07:30 04/12/21 07:30 Charges/Coding Addendum Addendum: Patient seen and examined by Luke Soria PA-C under my supervision Patient seen and examined. He was lying calmly in bed. He was having dialysis. He remains on air Vo. He had no active complaints and denied any fever, chills, coughing, shortness of breath, palpitation, dizziness, nausea or vomiting. Review of systems otherwise negative. O/E: Const alert, oriented HEENT head/scalp atraumatic and moist oral mucous membranes Head and Scalp: normocephalic Eyes PERRL, EOMs intact bilaterally and conjunctivae normal Neck no lymphadenopathy, supple and no JVD Resp Resp Narrative: Patient is on air Vo, diminished breath sounds bibasally, no wheezes or crackles. Cardio regular rate, regular rhythm, no murmurs and no JVD GI normal to inspection, nondistended, normoactive bowel sounds, soft to palpation and non-tender Extremity normal to inspection, full ROM and no clubbing, cyanosis or edema Skin no rashes or lesions noted, no wounds and skin turgor normal Neuro CN's II-XII intact bilaterally Psych flat affect Assessment and plan. #Acute hypoxic respiratory failure due to covid 19 pneumonia * on AirVo. * Chest x-ray from 04/10/2021 showed worsening bilateral pneumonia with possible progression to ARDS.Or Zosyn. Patient was switched to IV Solu-Medrol. * on decadron * * Pulmonology was on board, but signed off. #LILLY on CKD stage IV * This is likely due to ATN from rhabdomyolysis. Currently receiving dialysis through temporary dialysis catheter. * Nephrology on board. * #Rhabdomyolysis: This is largely resolved. #History of A. fib:was put on heparin drip on admission nad wiley baer. #Left distal fibular fracture: for conservative management. PT./OT on board. Fall precautions. #Anemia of chornic disease * Was transfused with 1 unit of packed red blood cells on the fifth. Hemoglobin is 8.3 today. DVT prophylaxis: on heparin drip. Code status:DNRCCA no intubation Disposition: family to meet with hospice team tomorrow to decide about hospice. Total time spent on care of patient today: 28 mins. Visit Charges Inpatient E&M: 08808 [facility] Hosp L3
--- NOTE | 2021-04-12 13:33 | DIALYSIS ---
hemodialysis completed x 4 hrs. Access via right neck temporary hD cath. Net UF 1000ml. See HD flowsheet on chart. report to Chris SHEPARD.
--- NOTE | 2021-04-12 14:06 | CASEMGMT ---
Hospice consult was entered in computer. TRAM spoke with TUAN Butler. He spoke with patient's daughters, Marianna and Carmelina and they agreed to talk with Hospice. They will be at [facility] at 1030a tomorrow to talk with Hospice. TRAM called [facility] and spoke with Fallon regarding referral. TRAM notified Fallon that patient's daughters will be at [facility] tomorrow 04-13-21 at 1030 to meet with Hospice. Fallon will get referral in system and notify correct person about family coming to [facility] tomorrow at 1030a. All clinicals faxed to Hospice. Silvina Ferrera PRINTED CIRCUIT BOARD PREASSEMBLER ANDREEA
[2021-04-12] MEDS: Metoprolol Tartrate 50 MG Tablet PO ×2 (14:19→22:58)
[2021-04-12] MEDS: dexAMETHasone 4 MG Tablet 6 MG PO (14:19)
[2021-04-12] MEDS: Neomycin/Bacitracin/Polymyxin Ointment 1 APPLIC TOPICAL (14:20)
[2021-04-12] MEDS: Silver Sulfadiazine 1% Crm 50 gm Bottle 1 APPLIC TOPICAL ×2 (14:21→22:58)
[2021-04-12] MEDS: Oxymetazoline 0.05% 1 SPRAY SPRAY.BTL 2 SPRAY NASAL ×2 (14:22→22:58)
--- NOTE | 2021-04-12 14:36 | PN.RENAL_ITS ---
Subjective Subjective Resting in bed. Just finished dialysis. Complains of poor appetite. Denies any nausea or vomiting. Objective Data Objective Data Vital Signs: Vital Signs Temp Pulse Resp BP Pulse Ox 97.0 F L 115 H 20 H 122/73 H 91 04/12/21 14:09 04/12/21 14:19 04/12/21 14:09 04/12/21 14:09 04/12/21 14:09 Oxygen Flow Rate (L/min) 60 Oxygen Delivery Method Airvo Weight: 91.5 kg Body Mass Index (BMI) 25.0 Intake & Output: Intake and Output for Last 24 Hours 04/10/21 04/11/21 04/12/21 23:59 23:59 23:59 Intake Total 1010 / 1210 977.33 / 977.33 164.4 / 164.4 Output Total 1700 / 2250 1230 / 1230 1875 / 1875 Balance -690 / -1040 -252.67 / -252.67 -1710.6 / -1710.6 Lab / Micro Data Result Diagrams: 04/12/21 07:30 04/12/21 07:30 Labs: Laboratory Results - last 24 hr 04/12/21 00:35: APTT 82.5 H 04/12/21 07:30: WBC 17.5 H, RBC 2.96 L, Hgb 8.1 L, Hct 25.4 L, MCV 85.8, MCH 27.4, MCHC 31.9 L D, RDW Std Deviation 45.9 H, RDW Coeff of Alfonso 14.8 H, Plt Count 392, MPV 10.3, Immature Gran % (Auto) 1.600 H, Neut % (Auto) 91.1 H, Lymph % (Auto) 2.7 L, [place] % (Auto) 4.5, Eos % (Auto) 0.0, Baso % (Auto) 0.1, Absolute Neuts (auto) 16.0 H, Absolute Lymphs (auto) 0.47 L, Nucleated RBC % 0 04/12/21 07:30: Sodium 143, Potassium 3.8, Chloride 105, Carbon Dioxide 28.0, BUN 114 H*, Creatinine 4.18 H, Estim Creat Clear Calc 15.84, Est GFR (MDRD) Af Amer 18 L, Est GFR (MDRD) Non-Af 15 L, BUN/Creatinine Ratio 27.3 H, Glucose 142 H, Calcium 8.6, Phosphorus 5.4 H, Albumin 1.8 L 04/12/21 07:30: APTT Cancelled 04/12/21 08:34: APTT 79.1 H Micro: Microbiology 04/10/21 14:45 Stool Stool Occult Blood (JOE) - Final 04/05/21 09:48 Blood Culture (Wb) - Right Hand Blood Culture - Final No growth in 5 days. 04/05/21 09:48 Blood Culture (Wb) - Left Forearm Blood Culture - Final No growth in 5 days. 04/01/21 Unknown Urine, Clean Catch Urine Culture - Final Mixed Gram Positive Organisms 03/31/21 12:50 Nasal Secretion SARS-CoV-2 Antigen (Rapid) - Final Physical Exam Narrative General: No apparent distress. Alert and oriented x3 HEENT: Normocephalic, atraumatic. Mucous membrane is moist. Neck: Supple, no JVD. Heart: Normal S1, S2. There is no rubs, murmurs or gallops. Lungs: Diffuse expiratory wheezing. Abdomen: Normal bowel sound, soft, nontender, no guarding or rebound. Extremities: No lower extremity edema. Temporary non-tunneled HD catheter dressing C/D/I Assessment & Plan Assessment/Plan (1) LILLY (acute kidney injury): PLAN: -Nonoliguric nephrotoxic ATN from rhabdomyolysis and ischemic ATN from prior volume depletion. CT of the abdomen and pelvis on 04/01/2021 did not reveal any hydronephrosis. Low suspicion for other causes of LILLY at this time. -There is underlying chronic kidney disease. Creatinine level prior to this admission was from October 2020. SCr 1.3 mg/dL, eGFR 55 mL/min which is CKD stage IIIa. -The patient remains nonoliguric. -Dialysis was started on 04/05/2021, SCr peaked 6.3mg/dL. -Serum creatinine is still rising between dialysis. Today SCr 4.18mg/dL, BUN 114. Patient underwent HD today over 4hr with 1L UF. For now we will keep the patient on TTS dialysis schedule should he . -We will still monitor for any renal recovery between dialysis. -If there is no renal recovery, I would request surgery to place tunneled hemodialysis catheter before discharge from hospital if remains HD dependent. However placing tunneled HD catheter may be difficult at this time as patient's oxygen requirement is between non-rebreather to Airvo. (2) Rhabdomyolysis: PLAN: -Due to the compression of right upper arm muscles. CK has been trending down. CK 20,600 on admission -The patient likely sustained LILLY due to nephrotoxic ATN because of rhabdomyolysis. -Continue current supportive care. (3) Hypocalcemia: PLAN: -Hypocalcemia was likely due to rhabdomyolysis as well. Calcium level is stable. No need for calcium supplementation. (4) Metabolic acidosis: PLAN: -Acidosis was due to LILLY/CKD. Acidosis has resolved with hemodialysis. -Serum bicarbonate normalized today. Serum bicarbonate level was 16 mmol/L on 04/02/2021. Serum bicarbonate level should continue to stabilize with dialysis. Discussed plan with primary team. Patient's daughters to meet with Hospice. At this time no decision made to stop dialysis. Code status DNRCCA, no intubation.
[2021-04-12] MEDS: Piperacil/Tazobactam 3.375 GM Q12 PREMIX IV (15:29)
--- NOTE | 2021-04-12 15:43 | CASEMGMT ---
TRAM called Hospice and spoke with Fallon. Fallon was able to contact family and the meeting for tomorrow at 1030 is a go. TRAM notified RN, bellows charger assembler, and TUAN Butler. Silvina Ferrera UPHOLSTERY HANDLER ANDREEA
[2021-04-12] MEDS: Juven (unflavored) Packet 1 PACKET PO (16:42)
[2021-04-12 23:36] LABS: Partial Thromboplast Time 88.6 Seconds (24.1-36.2)
[2021-04-13] VITALS (17 sets, daily range): BP systolic 120–134; BP diastolic 67–82; PULSE 85–107; RESP 16–24; TEMP 36.1–37.2; O2SAT 87–100
--- NOTE | 2021-04-13 02:44 | CPS ---
Pt wears 50% venti mask on top of airvo
[2021-04-13] MEDS: Amiodarone 200 MG Tablet 300 MG PO ×3 (05:22→21:17)
[2021-04-13] MEDS: Ipratropium/Albuterol Sulfate 3 ML AMPUL.NEB INHALATION (05:40)
[2021-04-13 06:33] LABS: Absolute Neutrophil Count 15.7 X10^3/uL (2.0-7.7); Basophil# 0.02 X10^3/uL; Basophil% 0.1 % (0-1); Hematocrit 25.1 % (40-54); Lymphocyte % 3.4 % (19-41); Mean Corp Hgb Conc 31.9 g/dL (32-36); Mean Corpuscular Hgb 27.3 pg (27.0-32.0); Mean Corpuscular Volume 85.7 fL (80-94); Mean Platelet Vol. 10.5 fl (6.2-12.0); Monocyte# 0.88 X10^3/uL; NRBC Flagged by Analyzer 0 % (0-5); Neutrophil # 15.69 X10^3/uL (2.7-7.7); Neutrophil % 89.8 % (47-70); POSITIVE DIFFERENTIAL YES; Platelet Count 417 K/mm3 (150-450); RBC Distribution Width CV 14.6 % (11.6-14.6); RBC Distribution Width SD 45.2 fl (35.1-43.9); Red Blood Count 2.93 M/mm3 (4.6-6.2); White Blood Count 17.5 K/mm3 (4.4-11.0)
[2021-04-13 06:49] LABS: Anion Gap 10 (5-15); BUN 66 mg/dL (7-18); BUN/Creat Ratio 24.1 RATIO (10-20); Calcium,Total 8.2 mg/dL (8.5-10.1); Chloride 105 mmol/L (98-107); Creatinine, Serum 2.74 mg/dL (0.70-1.30); Differential Indicated SCAN CRITERIA MET; EST Glomerular Filtration Rate 24 mL/min (>60); Est Glom Filt Rate - Afr Amer 29 mL/min (>60); Estimated Creatinine Clearance 24.17 ml/min; Glucose 114 mg/dL (74-106); Potassium 3.7 mmol/L (3.5-5.1); Sodium Level 142 mmol/L (136-145)
[2021-04-13] MEDS: Silver Sulfadiazine 1% Crm 50 gm Bottle 1 APPLIC TOPICAL (08:50)
[2021-04-13] MEDS: Neomycin/Bacitracin/Polymyxin Ointment 1 APPLIC TOPICAL (08:51)
--- NOTE | 2021-04-13 09:02 | WOUNDNOTE ---
Addendum entered by Stacey Mcgrath 04/13/21 09:30: Pt with Airvo and 50% venti mask. Original Note: Pt remains in Airvo with NRB mask. pulse ox currently 92%. dressing changed to the LLE. pt tolerated well. Did get patient to take a few bites of slovak toast and took some sips of juice. patient tires very easily.
[2021-04-13] MEDS: Metoprolol Tartrate 50 MG Tablet PO ×2 (09:22→21:17)
[2021-04-13] MEDS: Oxymetazoline 0.05% 1 SPRAY SPRAY.BTL 2 SPRAY NASAL ×2 (09:22→21:17)
[2021-04-13] MEDS: Juven (unflavored) Packet 1 PACKET PO (09:22)
[2021-04-13] MEDS: dexAMETHasone 4 MG Tablet 6 MG PO (09:22)
--- NOTE | 2021-04-13 11:12 | PCM.PN.REN ---
Subjective Subjective No overnight events. O2 requirement Airvo Objective Data Objective Data Vital Signs: Vital Signs Temp Pulse Resp BP Pulse Ox 97.6 F L 101 H 19 H 131/79 H 94 04/13/21 09:30 04/13/21 09:30 04/13/21 09:30 04/13/21 09:30 04/13/21 09:30 Oxygen Flow Rate (L/min) 60 Oxygen Delivery Method Airvo Weight: 90.6 kg Body Mass Index (BMI) 25.0 Intake & Output: Intake and Output for Last 24 Hours 04/11/21 04/12/21 04/13/21 23:59 23:59 23:59 Intake Total 977.33 / 977.33 448.4 / 548.4 278.1 / 278.1 Output Total 1230 / 1230 1875 / 1875 650 / 650 Balance -252.67 / -252.67 -1426.6 / -1326.6 -371.9 / -371.9 Lab / Micro Data Result Diagrams: 04/13/21 06:14 04/13/21 06:14 Labs: Laboratory Results - last 24 hr 04/12/21 15:55: APTT 91.0 H* 04/12/21 22:50: APTT 88.6 H 04/13/21 06:14: WBC 17.5 H, RBC 2.93 L, Hgb 8.0 L, Hct 25.1 L, MCV 85.7, MCH 27.3, MCHC 31.9 L, RDW Std Deviation 45.2 H, RDW Coeff of Alfonso 14.6, Plt Count 417, MPV 10.5, Immature Gran % (Auto) 1.700 H, Neut % (Auto) 89.8 H, Lymph % (Auto) 3.4 L, [place] % (Auto) 5.0, Eos % (Auto) 0.0, Baso % (Auto) 0.1, Absolute Neuts (auto) 15.7 H, Absolute Lymphs (auto) 0.60 L, Nucleated RBC % 0 04/13/21 06:14: Sodium 142, Potassium 3.7, Chloride 105, Carbon Dioxide 27.0, Anion Gap 10, BUN 66 H, Creatinine 2.74 H, Estim Creat Clear Calc 24.17, Est GFR (MDRD) Af Amer 29 L, Est GFR (MDRD) Non-Af 24 L, BUN/Creatinine Ratio 24.1 H, Glucose 114 H, Calcium 8.2 L 04/13/21 06:14: APTT 55.0 H Micro: Microbiology 04/10/21 14:45 Stool Stool Occult Blood (JOE) - Final 04/05/21 09:48 Blood Culture (Wb) - Right Hand Blood Culture - Final No growth in 5 days. 04/05/21 09:48 Blood Culture (Wb) - Left Forearm Blood Culture - Final No growth in 5 days. 04/01/21 Unknown Urine, Clean Catch Urine Culture - Final Mixed Gram Positive Organisms 03/31/21 12:50 Nasal Secretion SARS-CoV-2 Antigen (Rapid) - Final Physical Exam Narrative General: No apparent distress. Alert and oriented x3 Heart: Normal S1, S2. There is no rubs, murmurs or gallops. Lungs: Diffuse expiratory wheezing. Abdomen: Normal bowel sounds, soft, nontender, no guarding or rebound. Extremities: no pitting LE edema. Temporary non-tunneled HD catheter dressing C/D/I Assessment & Plan Assessment/Plan (1) LILLY (acute kidney injury): PLAN: -Nonoliguric nephrotoxic ATN from rhabdomyolysis and ischemic ATN from prior volume depletion. CT of the abdomen and pelvis on 04/01/2021 did not reveal any hydronephrosis. Low suspicion for other causes of LILLY at this time. -There is underlying chronic kidney disease. Creatinine level prior to this admission was from October 2020. SCr 1.3 mg/dL, eGFR 55 mL/min which is CKD stage IIIa. -The patient remains nonoliguric. -Dialysis was started on 04/05/2021, SCr peaked 6.3mg/dL. -Serum creatinine has been rising between dialysis. 04/12 SCr 4.18mg/dL, BUN 114 therefore patient underwent HD 4hr/ 1L UF. For now we will keep the patient on TTS dialysis schedule should he continue to need dialysis. No acute indication for AUTOMOTIVE CONSULTANT today, will monitor for AUTOMOTIVE CONSULTANT tomorrow. -We will still monitor for any renal recovery between dialysis. -If there is no renal recovery, I would request surgery to place tunneled hemodialysis catheter before discharge from hospital if remains HD dependent. However placing tunneled HD catheter may be difficult at this time as patient's oxygen requirement is between non-rebreather to Airvo. (2) Rhabdomyolysis: PLAN: -Due to the compression of right upper arm muscles. CK has been trending down. CK 20,600 on admission -The patient likely sustained LILLY due to nephrotoxic ATN because of rhabdomyolysis. -Continue current supportive care. (3) Hypocalcemia: PLAN: -Hypocalcemia was likely due to rhabdomyolysis as well. Calcium level is stable. No need for calcium supplementation. (4) Metabolic acidosis: PLAN: -Acidosis was due to LILLY/CKD. Acidosis has resolved with hemodialysis. Serum bicarbonate level should continue to stabilize with dialysis. Discussed plan with primary team. Patient's daughters to meet with Hospice today. At this time no decision made to stop dialysis. Code status DNRCCA, no intubation.
--- NOTE | 2021-04-13 11:36 | CASEMGMT ---
TRAM spoke with Dominguez from Hospice. She spoke with patient's daughters and they signed papers for Hospice. They would like patient to go to the inpatient Hospice Unit (IPU). Hospice does not have transport today. Dominguez also notified TUAN Butler to call Dr Fay at Hospice to get him approved for the IPU. TRAM updated RN and studio operations engineer in charge. Await approval from Dr Fay. Silvina Ferrera ROUND CORNER CUTTER OPERATOR ANDREEA
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
[2021-04-13 13:49] LABS: Partial Thromboplast Time 52.3 Seconds (24.1-36.2)
[2021-04-13] MEDS: Heparin Injection (Vial) 5,000 UNIT/ML VIAL IV ×2 (14:18→23:35)
--- NOTE | 2021-04-13 14:23 | NURSING ---
This RN placed patient from airvo 60L to 15L HFNC to trial for qualification for hospice transfer. slat basket maker Krishna informed. Patient maintaining O2 sats 92-93%.
--- NOTE | 2021-04-13 14:48 | CASEMGMT ---
Per [facility] Fay approved patient for their inpatient unit, but not today as he does not feel he is stable for transport due to being on airvo. Patient's daughters, Marianna and Carmelina asked to talk with TRAM. Per Marianna patient's sister, Jordyn is having a hard time with patient going on Hospice. Jordyn requested that records be sent to Dr Rodriguez, this was done yesterday. Marianna and Carmelina are patient's Healthcare POA's and they provided documents. After much discussion between TUAN Butler, Dr Rodriguez, TRAM, and patient's daughters it was decided patient will go to the inpatient Hospice Unit tomorrow. TRAM updated RN and ladle repairer. TRAM also spoke with Carmelina at Hospice letting her know this information. Plan: d/c to Inpatient Hospice tomorrow. Silvina DORAN
[2021-04-13 23:25] LABS: Partial Thromboplast Time 51.7 Seconds (24.1-36.2)
[2021-04-14] VITALS (8 sets, daily range): BP systolic 123–158; BP diastolic 64–83; PULSE 83–105; RESP 20–22; TEMP 36.4–36.6; O2SAT 88–97
[2021-04-14] MEDS: Amiodarone 200 MG Tablet 300 MG PO (05:25)
[2021-04-14 06:06] LABS: Absolute Lymphocyte Count 0.71 X10^3/uL (0.83-4.51); Absolute Neutrophil Count 18.2 X10^3/uL (2.0-7.7); Basophil# 0.04 X10^3/uL; Basophil% 0.2 % (0-1); Hematocrit 26.8 % (40-54); Hemoglobin 8.7 g/dL (13.0-16.5); Lymphocyte # 0.71 X10^3/ul (0.83-4.51); Lymphocyte % 3.5 % (19-41); Mean Corp Hgb Conc 32.5 g/dL (32-36); Mean Corpuscular Hgb 28.1 pg (27.0-32.0); Mean Corpuscular Volume 86.5 fL (80-94); Mean Platelet Vol. 10.9 fl (6.2-12.0); Monocyte# 0.97 X10^3/uL; Monocyte% 4.8 % (0-10); NRBC Flagged by Analyzer 0 % (0-5); Neutrophil # 18.16 X10^3/uL (2.7-7.7); Neutrophil % 89.8 % (47-70); Platelet Count 440 K/mm3 (150-450); RBC Distribution Width CV 14.9 % (11.6-14.6); RBC Distribution Width SD 46.3 fl (35.1-43.9); White Blood Count 20.2 K/mm3 (4.4-11.0)
[2021-04-14 06:24] LABS: Partial Thromboplast Time 51.6 Seconds (24.1-36.2)
[2021-04-14] MEDS: Heparin Injection (Vial) 5,000 UNIT/ML VIAL IV (06:31)
[2021-04-14 06:39] LABS: Anion Gap 10 (5-15); BUN 90 mg/dL (7-18); BUN/Creat Ratio 27.8 RATIO (10-20); Calcium,Total 8.3 mg/dL (8.5-10.1); Chloride 106 mmol/L (98-107); Creatinine, Serum 3.24 mg/dL (0.70-1.30); EST Glomerular Filtration Rate 20 mL/min (>60); Est Glom Filt Rate - Afr Amer 24 mL/min (>60); Estimated Creatinine Clearance 20.44 ml/min; Glucose 97 mg/dL (74-106); Potassium 3.9 mmol/L (3.5-5.1); Sodium Level 144 mmol/L (136-145)
[2021-04-14] MEDS: dexAMETHasone 4 MG Tablet 6 MG PO (08:08)
[2021-04-14] MEDS: Metoprolol Tartrate 50 MG Tablet PO (08:09)
[2021-04-14] MEDS: Oxymetazoline 0.05% 1 SPRAY SPRAY.BTL 2 SPRAY NASAL (08:09)
[2021-04-14] MEDS: Juven (unflavored) Packet 1 PACKET PO (08:09)
[2021-04-14] MEDS: Neomycin/Bacitracin/Polymyxin Ointment 1 APPLIC TOPICAL (08:17)
[2021-04-14] MEDS: Silver Sulfadiazine 1% Crm 50 gm Bottle 1 APPLIC TOPICAL (08:17)
--- NOTE | 2021-04-14 09:09 | CASEMGMT ---
Patient is now not tolerating being on 15L. It is questionable whether he would be stable for transport to Hospice. SW will talk with Carmelina at Hospice. Silvina Ferrera HOG CUTTER ANDREEA
--- NOTE | 2021-04-14 09:54 | DCINST_ITS ---
Discharge Instructions Diet Discharge Diet: No restrictions Activity Discharge Activity: Return to Normal Activity Follow Up Care Test Results: Test results from this visit will be discussed in further detail at your follow-up appointment, if applicable. Discharge Plan Admission Admit Date/Time: 03/31/21 15:34 Primary Reason for Your Visit: Covid Pneumonia Attending Provider: Blanka Monroy Primary Care Provider: Roman Ogden Consulting Providers: Nidia Dennis ; Dale Gloria ; Anahi Lopez ; Madi Nunez ; Greg Lindsay ; Maria Luisa Parker OUTBOARD MOTOR ASSEMBLER ; Twila Ozuna ; Mark Fowler ; Ирина Nash ; Camila Pickett ; Miranda Dorsey ; Gabby Figueroa OUTBOARD MOTOR ASSEMBLER Discharge Orders/Prescriptions Prescriptions: New silver sulfadiazine 1 % Cream 1 applic topical DAILY Qty: 0 RF: 0 ipratropium-albuterol 0.5 mg-3 mg(2.5 mg base)/3 mL Solution For Nebulization 3 ml inhalation Q6H.RT Qty: 0 RF: 0 amiodarone 200 mg Tablet 300 mg PO TID Qty: 0 RF: 0 dexamethasone 4 mg Tablet 6 mg PO DAILY Qty: 0 RF: 0 Continued apixaban 5 MG tablet 5 mg PO BID Qty: 74 RF: 0 metoprolol tartrate 25 mg tablet 25 mg PO DAILY RF: 0 Discontinued hydrochlorothiazide 12.5 mg tablet 12.5 mg PO DAILY RF: 0 PreserVision AREDS-2 250-90-40-1 mg Capsule 2 tab PO DAILY RF: 0 Referrals / Follow Up: Roman Ogden MD [Primary Care Provider] - Disposition Disposition (needs filled in before D/C Order can be placed): [facility]
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
--- NOTE | 2021-04-14 10:03 | CASEMGMT ---
Addendum entered by Silvina Ferrera 04/14/21 10:14: SW received a return call from Marianna and they are still in agreement with Hospice. SW let her know he will be moved in a couple of hours. Silvina DORAN Original Note: TRAM called Carmelina at Hospice. SW let her know patient is currently on 15L NC with 15L non rebreather mask over top. Carmelina said they can take him on that amount of O2. Their transport is not running today. TRAM called [facility] and spoke with Kelly and let her know how much O2 patient was on and she said they can do 25L or less. TRAM spoke with RN and respiratory and they feel patient can tolerate 25L for transport. TRAM called patient's daughter Marianna and left her a voice mail requesting return call. RN, electrical discharge machine operator, and Nurse Practitioner updated. Silvina DORAN
--- NOTE | 2021-04-14 10:40 | PCM.PN.REN ---
Subjective Subjective Following for LILLY no overnight events. A&O. Still requiring high flow oxygen Objective Data Objective Data Vital Signs: Vital Signs Temp Pulse Resp BP Pulse Ox 97.5 F L 96 22 H 158/64 H 90 04/14/21 08:06 04/14/21 08:09 04/14/21 08:06 04/14/21 08:09 04/14/21 08:06 Oxygen Flow Rate (L/min) 15 Oxygen Delivery Method Non-Rebreather @ 15L/min Weight: 88.2 kg Body Mass Index (BMI) 25.0 Intake & Output: Intake and Output for Last 24 Hours 04/12/21 04/13/21 04/14/21 23:59 23:59 23:59 Intake Total 448.4 / 548.4 492.60 / 492.60 140.98 / 140.98 Output Total 1875 / 1875 950 / 1250 600 / 600 Balance -1426.6 / -1326.6 -457.40 / -757.40 -459.02 / -459.02 Lab / Micro Data Result Diagrams: 04/14/21 05:35 04/14/21 05:35 Labs: Laboratory Results - last 24 hr 04/13/21 13:28: APTT 52.3 H 04/13/21 22:20: APTT 51.7 H 04/14/21 05:35: WBC 20.2 H, RBC 3.10 L, Hgb 8.7 L, Hct 26.8 L, MCV 86.5, MCH 28.1, MCHC 32.5, RDW Std Deviation 46.3 H, RDW Coeff of Alfonso 14.9 H, Plt Count 440, MPV 10.9, Immature Gran % (Auto) 1.700 H, Neut % (Auto) 89.8 H, Lymph % (Auto) 3.5 L, [place] % (Auto) 4.8, Eos % (Auto) 0.0, Baso % (Auto) 0.2, Absolute Neuts (auto) 18.2 H, Absolute Lymphs (auto) 0.71 L, Nucleated RBC % 0 04/14/21 05:35: Sodium 144, Potassium 3.9, Chloride 106, Carbon Dioxide 28.0, Anion Gap 10, BUN 90 H, Creatinine 3.24 H, Estim Creat Clear Calc 20.44, Est GFR (MDRD) Af Amer 24 L, Est GFR (MDRD) Non-Af 20 L, BUN/Creatinine Ratio 27.8 H, Glucose 97, Calcium 8.3 L 04/14/21 05:35: APTT 51.6 H Micro: Microbiology 04/10/21 14:45 Stool Stool Occult Blood (JOE) - Final 04/05/21 09:48 Blood Culture (Wb) - Right Hand Blood Culture - Final No growth in 5 days. 04/05/21 09:48 Blood Culture (Wb) - Left Forearm Blood Culture - Final No growth in 5 days. 04/01/21 Unknown Urine, Clean Catch Urine Culture - Final Mixed Gram Positive Organisms 03/31/21 12:50 Nasal Secretion SARS-CoV-2 Antigen (Rapid) - Final Physical Exam Narrative General: No apparent distress. Alert and oriented x3 Heart: Normal S1, S2. There is no rubs, murmurs or gallops. Lungs: Diffuse expiratory wheezing. Abdomen: Normal bowel sounds, soft, nontender, no guarding or rebound. Extremities: no pitting LE edema. Temporary non-tunneled HD catheter dressing C/D/I Assessment & Plan Assessment/Plan (1) LILLY (acute kidney injury): PLAN: -Nonoliguric nephrotoxic ATN from rhabdomyolysis and ischemic ATN from prior volume depletion. CT of the abdomen and pelvis on 04/01/2021 did not reveal any hydronephrosis. Low suspicion for other causes of LILLY at this time. -There is underlying chronic kidney disease. Creatinine level prior to this admission was from October 2020. SCr 1.3 mg/dL, eGFR 55 mL/min which is CKD stage IIIa. -The patient remains nonoliguric. -Dialysis was started on 04/05/2021, SCr peaked 6.3mg/dL. -Serum creatinine has been rising between dialysis. Last HD session 04/12/2021. Today serum creatinine 3.24 mg/dL, estimated GFR 20 mL/min. - oxygen requirement is between non-rebreather to [employer]. Currently on nonrebreather. - Discussed plan with discharge team, patient is going to hospice center today with no more dialysis. Patient will not dialyze today. Non-tunneled HD catheter to be removed before patient is discharged from hospital. (2) Rhabdomyolysis: PLAN: -Due to the compression of right upper arm muscles. CK has been trending down. CK 20,600 on admission -The patient likely sustained LILLY due to nephrotoxic ATN because of rhabdomyolysis. -Continue current supportive care. (3) Hypocalcemia: PLAN: -Hypocalcemia was likely due to rhabdomyolysis as well. Calcium level is stable. No need for calcium supplementation. (4) Metabolic acidosis: PLAN: -Acidosis was due to LILLY/CKD. Acidosis has resolved with hemodialysis. Serum bicarbonate level should continue to stabilize with dialysis. Discussed plan with primary team. Patient's daughters met with Hospice. Decision made for hospice with no further dialysis. Code status DNRCC
--- NOTE | 2021-04-14 10:44 | CASEMGMT ---
Addendum entered by Daniel Treviño 04/14/21 15:14: [facility] stating she did receive message from DREA GRADY re: HD referral to be cx'd. Original Note: DREA GRADY NOTE: Call placed to [facility] admissions. No answer. VM left informing her that OP HD has been cancelled, as pt is going to In-patient Hospice today. This RN MIGUEL A # left on for call-back. Aram BECK RN CM
--- NOTE | 2021-04-14 11:03 | CASEMGMT ---
TRAM called [facility] and arranged for patient to get picked up at 1p via cot. TRAM spoke with Kelly and she said they actually do 24L or less. SW told her that should still be fine. TRAM let her know patient is on nasal cannula with non rebreather mask over top. TRAM notified RN, clerk secretary, Carmelina with Hospice and patient's daughter Marianna. Marianna told SW she will notify the rest of the family. Plan: d/c to [facility] inpatient [facility]. [facility] transported via [facility]. Silvina DOARN
--- NOTE | 2021-04-14 11:08 | NURSING ---
Report called to [facility]patient [facility].
== END 2021-04-14 13:16 | disposition hospice, inpatient (51) | DRG 557 ==
LOC: ED 14:32 → PCU 16:39
PROVIDERS: Internal Medicine; Internal Medicine Nephrology; Nurse Practitioner Family; Physician Assistant; Admitting Provider Family Medicine; Emergency Provider Emergency Medicine; PCP Family Medicine; Visit Provider Student in an Organized Health Care Education/Training Program
DX: M62.82 Rhabdomyolysis (principal); U07.1 COVID-19; N17.0 Acute kidney failure with tubular necrosis; J96.01 Acute respiratory failure with hypoxia; J12.82 Pneumonia due to coronavirus disease 2019; E87.2 Acidosis; N18.4 Chronic kidney disease, stage 4 (severe); I48.20 Chronic atrial fibrillation, unspecified; T24.322A Burn of third degree of left knee, initial encounter; T24.332A Burn of third degree of left lower leg, initial encounter; L89.319 Pressure ulcer of right buttock, unspecified stage; D63.8 Anemia in other chronic diseases classified elsewhere; L89.329 Pressure ulcer of left buttock, unspecified stage; T24.221A Burn of second degree of right knee, initial encounter; D50.9 Iron deficiency anemia, unspecified; D72.810 Lymphocytopenia; E83.51 Hypocalcemia; W19.XXXA Unspecified fall, initial encounter; S82.302A Unspecified fracture of lower end of left tibia, initial encounter for closed fracture; I12.9 Hypertensive chronic kidney disease with stage 1 through stage 4 chronic kidney disease, or unspecified chronic kidney disease; S82.402A Unspecified fracture of shaft of left fibula, initial encounter for closed fracture; T22.222A Burn of second degree of left elbow, initial encounter; R73.9 Hyperglycemia, unspecified; Z66 Do not resuscitate; Z79.01 Long term (current) use of anticoagulants; Z79.899 Other long term (current) drug therapy; Y93.9 Activity, unspecified; Y92.9 Unspecified place or not applicable; X16.XXXA Contact with hot heating appliances, radiators and pipes, initial encounter
CPT/HCPCS: 36415; 36600; 70450; 71045; 72125; 73590; 73700; 76770; 80048; 80053; 80069; 80076; 81001; 82274; 82550; 82570; 82803; 83036; 83540; 83550; 83605; 83735; 84100; 84145; 84484; 84540; 85014; 85018; 85025; 85045; 85379; 85610; 85730; 86704; 86706; 86850; 86900; 86901; 86920; 86922; 87040; 87086; 87088; 87340; 87426; 87635; 90937; 93005; 94640; 94660; 97110; 97116; 97163; 97166; 97530; 97535; 97802; 99251; 99285; J7030; J7040; J7050; J7120; P9016; A4216; C1752; G0257; G0463; J0610; J1940; U0003; U0005